=== PATIENT | male | born 1950 | race Caucasian/White ===

== ENCOUNTER 2020-02-29 12:58 | Emergency (ER) | payer MEDICARE, BC ==
[2020-02-29] MEDS ORDERED: Sodium Chloride 0.9% 2.5 ML Syringe FLUSH PRN (13:18)
[2020-02-29] MEDS ORDERED: Sodium Chloride 0.9% 10 ML SDV IV PRN (13:18)
[2020-02-29] MEDS ORDERED: Sodium Chloride 0.9% 10 ML Syringe FLUSH PRN (13:18)
--- NOTE | 2020-02-29 13:20 | EDM.PDOC ---
ED HPI GENERAL MEDICAL PROBLEM - General Chief Complaint: General Stated Complaint: DIABETIC COMPLAINT Time Seen by Provider: 02/29/20 13:00 Source of Information: Reports: Patient History Limitations: Reports: No Limitations - History of Present Illness INITIAL COMMENTS - FREE TEXT/NARRATIVE: HISTORY AND PHYSICAL: History of present illness: Patient is a 70-year-old male who presents to the emergency room with multiple vague complaints. Patient states he woke up around 8 AM this morning and he had difficulty feeling his lower extremities. He states he was not able to move his legs out of bed, so he rolled out of bed and crawled to the bathroom. His had noticed him crawling on the ground and had assisted him into a chair. She checked his blood sugar as he is a type 1 insulin-dependent diabetic , his blood sugar was 51. The had given him several glasses of Gatorade and he sat in the chair for about an hour. He states he did feel tremulous and weak but regained his strength and went outside to water the martin. He came inside and ate some rice and sausage. When he came in and sat in his recliner he reports his was talking to him but he was unable to verbally respond. He states he was aphasic for about 20 seconds before he was able to talk (per ). During this time he was able to move his upper and lower extremities and denies any one-sided weakness. He states he did not have any type of facial droop, drooling, headache, change in vision, syncope or near syncopal events. Patient denies any fever, chills, chest pain, back pain, shortness of breath or cough. Denies any abdominal pain, nausea, vomiting, diarrhea, constipation or dysuria. Has not noted any blood in urine or stool. Patient has been eating and drinking appropriately. Review of systems: As per history of present illness and below otherwise all systems reviewed and negative. Past medical history: As per history of present illness and as reviewed below otherwise noncontributory. Surgical history: As per history of present illness and as reviewed below otherwise noncontributory. Social history: See social history for further information Family history: As per history of present illness and as reviewed below otherwise noncontributory. Physical exam: General: Well-developed and well-nourished 70-year-old male. Alert and oriented. Nontoxic-appearing and in no acute distress. HEENT: Atraumatic, normocephalic, pupils equal and reactive bilaterally, negative for conjunctival pallor or scleral icterus, mucous membranes moist, TMs normal bilaterally, throat clear, neck supple, nontender, trachea midline. No drooling or trismus noted. No meningeal signs. No hot potato voice noted. Lungs: Clear to auscultation, breath sounds equal bilaterally, chest nontender. Heart: S1S2, regular rate and rhythm without overt murmur Abdomen: Soft, nondistended, nontender. Negative for masses or hepatosplenomegaly. Negative for costovertebral tenderness. Pelvis: Stable nontender. Skin: Intact, warm, dry. No lesions or rashes noted. Extremities: Atraumatic, moves all extremities per self without difficulty or deficits, negative for cords or calf pain. Neurovascular unremarkable. Neuro: Awake, alert, oriented. Cranial nerves II through XII unremarkable. Cerebellum unremarkable. Motor and sensory unremarkable throughout. Exam nonfocal. Notes: Upon patient arrival he is alert, oriented, answering questions appropriately. Neurologically he is intact and following all commands. NIH equals 0, GCS 15. Last known well time is 1230. Due to patient's complaints a stroke alert was called overhead and Dr Akbar was directly involved in this patient's care. Nursing staff had gone down with the patient for head CT. It was noted that the patient became aphasic again, this lasted 8 minutes. During this time he had tonic clonic jerking movements but was following all commands. NIH 7. 1400: [facility] was consulted, Dr. Eldridge the ED physician states they are at maximum capacity and recommended he go to [facility]. EKG was done at 1403 showing a normal sinus rhythm with a rate of 83. 1420: [facility] was consulted on this case. Dr. Wong, ER physician, was made aware of this patient and he is agreeable to accepting this patient. We did attempt to get a hold of the hospitalist to have the patient directly admitted although due to the long wait of time Dr. Wong he did not want to delay any care and said he could come through the emergency room. Patient will be flown via [facility]. His vital signs remained stable. Went through contraindications for Alteplase with and patient; risks vs benefits were also reviewed and discussed with both parties. Both consent; will give here in the ED. TPA was given in the ER, see note. Flight crew here. Patient had a 3rd episode where he became intermittently aphasic/dysarthric with the tonic clonic jerking movements. He still is able to follow commands appropriately. is at bedside. Head CT shows no sign of mass lesions, mass-effect, hemorrhage or edema. Involutional changes. No other acute appearing findings are noted. CTA of the head shows no proximal intracranial arterial occlusions, filling deficits or high-grade stenosis. CTA neck shows no high-grade stenosis or filling defects in the cervical carotid systems or cervical vertebral arteries. No dissection is identified. Lab work is unremarkable with the exception of slightly elevated BUN/creat. Diagnostics: CBC, CMP, troponin, EKG, chest x-ray, head CT, bedside glucose, PT/INR, angios head Therapeutics: Saline lock, information services manager, aspirin, alteplase Impression: Presumed ischemic stroke Plan: Transfer via flight to [facility] Definitive disposition and diagnosis as appropriate pending reevaluation and review of above. - Related Data Allergies Allergy/AdvReac Type Severity Reaction Status Date / Time No Known Allergies Allergy Verified 02/29/20 13:46 ED ROS GENERAL - Review of Systems Review Of Systems: Comprehensive ROS is negative, except as noted in HPI. ED EXAM, GENERAL - Physical Exam Exam: See Below (See dictation) Course - Vital Signs Last Recorded V/S: Last Vital Signs Temp 98.5 F 02/29/20 13:17 Pulse 92 02/29/20 13:17 Resp 15 02/29/20 13:17 BP 131/80 02/29/20 13:17 Pulse Ox 97 02/29/20 13:17 - Orders/Labs/Meds Orders: Active Orders 24 hr Category Date Time Status Assess Neurological Status [RC] ASDIRECTED Care 02/29/20 13:18 Active Blood Glucose Check, Bedside [RC] ONETIME Care 02/29/20 13:20 Active Cardiac Monitoring [RC] . DIRECTED Care 02/29/20 13:18 Active EKG Documentation Completion [RC] STAT Care 02/29/20 13:18 Active Initiate Acute Stroke Protocol [RC] STAT Care 02/29/20 13:18 Active NIH Stroke Scale [RC] ASDIRECTED Care 02/29/20 13:18 Active Sodium Chloride 0.9% [Normal Saline] Med 02/29/20 13:18 Active 10 ml IV ASDIRECTED PRN Sodium Chloride 0.9% [Saline Flush] Med 02/29/20 13:18 Active 10 ml FLUSH ASDIRECTED PRN Sodium Chloride 0.9% [Saline Flush] Med 02/29/20 13:18 Active 2.5 ml FLUSH ASDIRECTED PRN Peripheral IV Insertion Adult [OM.PC] Stat Oth 02/29/20 13:18 Ordered Medication Orders Sodium Chloride (Saline Flush) 10 ml FLUSH ASDIRECTED PRN PRN Reason: Keep Vein Open Last Admin: 02/29/20 13:36 Dose: 10 ml Sodium Chloride (Saline Flush) 2.5 ml FLUSH ASDIRECTED PRN PRN Reason: Keep Vein Open Last Admin: 02/29/20 13:36 Dose: 2.5 ml Sodium Chloride (Normal Saline) 10 ml IV ASDIRECTED PRN PRN Reason: IV Use Last Admin: 02/29/20 13:36 Dose: 10 ml Labs: Laboratory Tests 02/29/20 02/29/20 02/29/20 Range/Units 13:16 13:27 13:27 WBC 8.59 (4.0-11.0) K/uL RBC 4.42 L (4.50-5.90) M/uL Hgb 13.5 (13.0-17.0) g/dL Hct 39.3 (38.0-50.0) % MCV 88.9 (80.0-98.0) fL MCH 30.5 (27.0-32.0) pg MCHC 34.4 (31.0-37.0) g/dL RDW Std Deviation 44.7 (28.0-62.0) fl RDW Coeff of Mariah 14 (11.0-15.0) % Plt Count 185 (150-400) K/uL MPV 10.80 (7.40-12.00) fL Neut % (Auto) 75.9 (48.0-80.0) % Lymph % (Auto) 15.6 L (16.0-40.0) % [place] % (Auto) 7.7 (0.0-15.0) % Eos % (Auto) 0.6 (0.0-7.0) % Baso % (Auto) 0.2 (0.0-1.5) % Neut # (Auto) 6.5 H (1.4-5.7) K/uL Lymph # (Auto) 1.3 (0.6-2.4) K/uL [place] # (Auto) 0.7 (0.0-0.8) K/uL Eos # (Auto) 0.1 (0.0-0.7) K/uL Baso # (Auto) 0.0 (0.0-0.1) K/uL Nucleated RBC % 0.0 /100WBC Nucleated RBCs # 0 K/uL INR 0.93 Sodium (136-148) mmol/L Potassium (3.5-5.1) mmol/L Chloride (98-107) mmol/L Carbon Dioxide (21.0-32.0) mmol/L BUN (7.0-18.0) mg/dL Creatinine (0.8-1.3) mg/dL Est Cr Clr Drug Dosing Estimated GFR (MDRD) ml/min Glucose (74-106) mg/dL POC Glucose 158 H (60-110) mg/dL Calcium (8.5-10.1) mg/dL Total Bilirubin (0.2-1.0) mg/dL AST (15-37) IU/L ALT (14-63) IU/L Alkaline Phosphatase (46-116) U/L Troponin I (0.000-0.056) ng/mL Total Protein (6.4-8.2) g/dL Albumin (3.4-5.0) g/dL Globulin (2.6-4.0) g/dL Albumin/Globulin Ratio (0.9-1.6) 02/29/20 Range/Units 13:27 WBC (4.0-11.0) K/uL RBC (4.50-5.90) M/uL Hgb (13.0-17.0) g/dL Hct (38.0-50.0) % MCV (80.0-98.0) fL MCH (27.0-32.0) pg MCHC (31.0-37.0) g/dL RDW Std Deviation (28.0-62.0) fl RDW Coeff of Mariah (11.0-15.0) % Plt Count (150-400) K/uL MPV (7.40-12.00) fL Neut % (Auto) (48.0-80.0) % Lymph % (Auto) (16.0-40.0) % [place] % (Auto) (0.0-15.0) % Eos % (Auto) (0.0-7.0) % Baso % (Auto) (0.0-1.5) % Neut # (Auto) (1.4-5.7) K/uL Lymph # (Auto) (0.6-2.4) K/uL [place] # (Auto) (0.0-0.8) K/uL Eos # (Auto) (0.0-0.7) K/uL Baso # (Auto) (0.0-0.1) K/uL Nucleated RBC % /100WBC Nucleated RBCs # K/uL INR Sodium 138 (136-148) mmol/L Potassium 4.3 (3.5-5.1) mmol/L Chloride 99 (98-107) mmol/L Carbon Dioxide 27.3 (21.0-32.0) mmol/L BUN 30 H (7.0-18.0) mg/dL Creatinine 1.4 H (0.8-1.3) mg/dL Est Cr Clr Drug Dosing TNP Estimated GFR (MDRD) 50.4 ml/min Glucose 148 H (74-106) mg/dL POC Glucose (60-110) mg/dL Calcium 8.4 L (8.5-10.1) mg/dL Total Bilirubin 0.4 (0.2-1.0) mg/dL AST 30 (15-37) IU/L ALT 39 (14-63) IU/L Alkaline Phosphatase 120 H (46-116) U/L Troponin I < 0.050 (0.000-0.056) ng/mL Total Protein 6.8 (6.4-8.2) g/dL Albumin 3.5 (3.4-5.0) g/dL Globulin 3.3 (2.6-4.0) g/dL Albumin/Globulin Ratio 1.1 (0.9-1.6) Meds: Medications Generic Name Dose Route Start Last Admin Trade Name Freq PRN Reason Stop Dose Admin Sodium Chloride 10 ml 06/06/20 13:18 02/29/20 13:36 Saline Flush FLUSH 10 ml ASDIRECTED PRN Administration Keep Vein Open Sodium Chloride 2.5 ml 02/29/20 13:18 02/29/20 13:36 Saline Flush FLUSH 2.5 ml ASDIRECTED PRN Administration Keep Vein Open Sodium Chloride 10 ml 02/29/20 13:18 02/29/20 13:36 Normal Saline IV 10 ml ASDIRECTED PRN Administration IV Use Discontinued Medications Generic Name Dose Route Start Last Admin Trade Name Melanie PRN Reason Stop Dose Admin Alteplase, Recombinant Confirm 02/29/20 13:48 Activase Administered 02/29/20 13:49 Dose 100 mg .ROUTE .STK-MED ONE Alteplase, Recombinant 90 mg 02/29/20 13:51 Activase IV 02/29/20 13:52 NOW STA Aspirin 324 mg 02/29/20 13:29 Aspirin PO 02/29/20 13:30 ONETIME ONE Aspirin 300 mg 02/29/20 14:16 Aspirin RECTAL 02/29/20 14:17 STAT STA Aspirin Confirm 02/29/20 14:18 Aspirin Administered 02/29/20 14:19 Dose 300 mg .ROUTE .STK-MED ONE Iopamidol 100 ml 02/29/20 14:14 02/29/20 14:15 Isovue-370 (76%) IVPUSH 02/29/20 14:15 100 ml ONETIME ONE Administration Departure - Departure Time of Disposition: 14:52 Disposition: DC/Tfer to Acute Hospital 02 Clinical Impression: Ischemic stroke - Discharge Information Referrals: Alexis Berkowitz MD [Primary Care Provider] - Forms: ED Department Discharge Sepsis Event Note - Focused Exam Vital Signs: Vital Signs Temp Pulse Resp BP Pulse Ox 02/29/20 13:17 98.5 F 92 15 131/80 97 Date Exam was Performed: 02/29/20 Time Exam was Performed: 14:47 - My Orders Last 24 Hours: My Active Orders 02/29/20 13:18 Assess Neurological Status [RC] ASDIRECTED Cardiac Monitoring [RC] . DIRECTED EKG Documentation Completion [RC] STAT Initiate Acute Stroke Protocol [RC] STAT NIH Stroke Scale [RC] ASDIRECTED Sodium Chloride 0.9% [Normal Saline] 10 ml IV ASDIRECTED PRN Sodium Chloride 0.9% [Saline Flush] 10 ml FLUSH ASDIRECTED PRN Sodium Chloride 0.9% [Saline Flush] 2.5 ml FLUSH ASDIRECTED PRN Peripheral IV Insertion Adult [OM.PC] Stat 02/29/20 13:20 Blood Glucose Check, Bedside [RC] ONETIME - Assessment/Plan Last 24 Hours: My Active Orders 02/29/20 13:18 Assess Neurological Status [RC] ASDIRECTED Cardiac Monitoring [RC] . DIRECTED EKG Documentation Completion [RC] STAT Initiate Acute Stroke Protocol [RC] STAT NIH Stroke Scale [RC] ASDIRECTED Sodium Chloride 0.9% [Normal Saline] 10 ml IV ASDIRECTED PRN Sodium Chloride 0.9% [Saline Flush] 10 ml FLUSH ASDIRECTED PRN Sodium Chloride 0.9% [Saline Flush] 2.5 ml FLUSH ASDIRECTED PRN Peripheral IV Insertion Adult [OM.PC] Stat 02/29/20 13:20 Blood Glucose Check, Bedside [RC] ONETIME
[2020-02-29] MEDS ORDERED: Aspirin 81 MG Tab.Chew PO ONE (13:29)
[2020-02-29 14:01] LABS: BLOOD UREA NITROGEN,BUN 30 mg/dL (7.0-18.0); CARBON DIOXIDE,CO2 27.3 mmol/L (21.0-32.0); CHLORIDE,CL 99 mmol/L (98-107); GLUCOSE RANDOM 148 mg/dL (74-106); POTASSIUM,K 4.3 mmol/L (3.5-5.1); SODIUM,NA 138 mmol/L (136-148)
[2020-02-29] MEDS ORDERED: Iopamidol 755 Mg/ML 100 ML Bottle IVPUSH ONE (14:14)
[2020-02-29] MEDS ORDERED: Aspirin 300 MG Supp RECTAL STA (14:16)
[2020-02-29] MEDS ORDERED: Aspirin 300 MG Supp ONE (14:18)
--- NOTE | 2020-02-29 14:18 | CT ---
INDICATION: Stroke COMPARISON: None TECHNIQUE: CT examination of the head was performed as axial sections without intravenous contrast. Images were obtained from the vertex of the skull through the skull base. Please note that all CT scans at this facility use dose modulation, iterative reconstruction, and/or weight-based dosing when appropriate to reduce radiation dose to as low as reasonably achievable. FINDINGS: The brain shows no sign of mass lesion, mass effect, hemorrhage, or edema. There are involutional changes. There is mild cortical atrophy and there is mild white matter disease. There is no hydrocephalus. The visualized portions of the orbits are normal in appearance. The osseous structures are normal in appearance with no sign of abnormality in the skull base or calvarium. IMPRESSION: Involutional changes. No acute-appearing findings. Please note that all CT scans at this facility use dose modulation, iterative reconstruction, and/or weight-based dosing when appropriate to reduce radiation dose to as low as reasonably achievable. Dictated by Benton Reeves MD @ Feb 29 2020 2:10PM Signed by Dr. Benton Reeves @ Feb 29 2020 2:16PM
--- NOTE | 2020-02-29 14:38 | PCM.SN.2 ---
- Free Text/Narrative Note: Patient was presented to be by the mid-level provider. I have personally independently seen and evaluated the patient at bedside and, if available, have spoken with the with the family. I agree with the history, physical, medical decision making, and plan of treatment as documented by the mid-level provider. I have performed the medical decision making for this patient, including assessing the results of all diagnostic testing and I have instructed the mid- level provider to document the results. In brief, this is a 70-year-old male with a past medical history of hypertension , hyperlipidemia, and type 2 diabetes mellitus presenting with concern for stroke. Patient was at home when he developed aphasia that was witnessed by his . Symptoms resolved by the time he arrived to the emergency department. Due to concern for stroke, a stroke code was declared. Initial NIH was 0. Transported to the CT scanner where he developed aphasia and myoclonic jerks, which were identical to the symptoms he had at home. NIH score with these symptoms was 7. Noncontrast head CT shows no evidence of intracranial hemorrhage. Given full dose aspirin suppository, IV TPA. Aeromedical transport activation. Labs show mild renal insufficiency. Twelve- lead EKG is nonischemic. Initially planned to transport to closest appropriate stroke facility in [place], [place] but no bed availability. Patient was then arranged to transfer to the next closest drug facility: [facility] in [place], [place]. Transfer to aeromedical crew in good condition.
--- NOTE | 2020-02-29 14:43 | CT ---
INDICATION: Acute stroke, altered mental status. Preliminary Report: CTA head: No proximal intracranial arterial occlusions, filling defects or high-grade stenoses. CTA neck: No high-grade stenosis or filling defects are identified in the cervical carotid systems or cervical vertebral arteries. No dissection identified. Prelim Report By Dr. Hoang Daily @ 02/29/2020 2:41:20 PM ADDENDUM TECHNIQUE: High resolution axial CT images acquired through the head and neck following rapid intravenous administration of iodinated contrast. Multiplanar MIPS of cranial and cervical vasculature performed. FINDINGS/IMPRESSION: AGREE WITH ABOVE. No large vessel occlusion. Heavily calcified plaque around both carotid siphons and at both carotid bifurcations. No significant stenosis by NASCET criteria. No carotid or vertebral artery dissection. Please note that all CT scans at this facility use dose modulation, iterative reconstruction, and/or weight-based dosing when appropriate to reduce radiation dose to as low as reasonably achievable. Dictated by: Umberto Deutsch MD @ 02/29/2020 17:11:17 (Electronically Signed)
--- NOTE | 2020-02-29 14:43 | CT ---
INDICATION: Acute stroke, altered mental status. Preliminary Report: CTA head: No proximal intracranial arterial occlusions, filling defects or high-grade stenoses. CTA neck: No high-grade stenosis or filling defects are identified in the cervical carotid systems or cervical vertebral arteries. No dissection identified. Prelim Report By Dr. Hoang Daily @ 02/29/2020 2:41:40 PM ADDENDUM TECHNIQUE: High resolution axial CT images acquired through the head and neck following rapid intravenous administration of iodinated contrast. Multiplanar MIPS of cranial and cervical vasculature performed. FINDINGS/IMPRESSION: AGREE WITH ABOVE. No large vessel occlusion. Heavily calcified plaque around both carotid siphons and at both carotid bifurcations. No significant stenosis by NASCET criteria. No carotid or vertebral artery dissection. Please note that all CT scans at this facility use dose modulation, iterative reconstruction, and/or weight-based dosing when appropriate to reduce radiation dose to as low as reasonably achievable. Dictated by: Umberto Deutsch MD @ 02/29/2020 17:11:38 (Electronically Signed)
== END 2020-02-29 14:40 ==
LOC: MW.ED 12:58
DX: I63.9 Cerebral infarction, unspecified (principal)
CPT/HCPCS: 36415; 37195; 51702; 70450; 70496; 70498; 80053; 82962; 84484; 85025; 85610; 93005; 99291; A9270; J2997; J7050; Q9967; 99285

== ENCOUNTER 2021-03-22 15:52 | Emergency (ER) | payer MEDICARE, BC ==
[2021-03-22] MEDS ORDERED: Sodium Chloride 0.9% 10 ML Syringe FLUSH PRN (15:54)
[2021-03-22] MEDS ORDERED: Sodium Chloride 0.9% 2.5 ML Syringe FLUSH PRN (15:54)
[2021-03-22] MEDS ORDERED: Sodium Chloride 0.9% 1,000 ML IV ONE (15:54)
[2021-03-22] MEDS ORDERED: Ondansetron 4 MG/2 ML SDV IVPUSH ONE (15:54)
[2021-03-22 16:35] LABS: BLOOD UREA NITROGEN,BUN 33 mg/dL (7.0-18.0); CARBON DIOXIDE,CO2 21.4 mmol/L (21.0-32.0); CHLORIDE,CL 105 mmol/L (98-107); GLUCOSE RANDOM 131 mg/dL (74-106); LIPASE 189 U/L (73-393); POTASSIUM,K 3.7 mmol/L (3.5-5.1); SODIUM,NA 141 mmol/L (136-148)
--- NOTE | 2021-03-22 16:35 | EDM.PDOC ---
ED HPI GENERAL MEDICAL PROBLEM - General Chief Complaint: Gastrointestinal Problem Stated Complaint: ATE BAD SALSA Time Seen by Provider: 03/22/21 15:54 Source of Information: Reports: Patient History Limitations: Reports: No Limitations - History of Present Illness INITIAL COMMENTS - FREE TEXT/NARRATIVE: HISTORY AND PHYSICAL: History of present illness: Patient is a 71-year-old male who presents to the emergency room with complaints of nausea and vomiting. States approximately 2 hours prior to arrival he was eating at a [place] restaurant and believes he ate "bad salsa". Prior to arrival he started having generalized abdominal cramping, nausea and vomiting. He is concerned he has food poisoning. He is a type I diabetic, has insulin pump. Current blood sugar is 138. Patient denies any fever, chills, headache, change in vision, syncope or near syncope. Denies any chest pain, back pain, shortness of breath or cough. Denies any diarrhea, constipation or dysuria. Has not noted any blood in urine or stool. Patient had been eating and drinking appropriately. Review of systems: As per history of present illness and below otherwise all systems reviewed and negative. Past medical history: As per history of present illness and as reviewed below otherwise noncontributory. Surgical history: As per history of present illness and as reviewed below otherwise no ncontributory. Social history: See social history for further information Family history: As per history of present illness and as reviewed below otherwise noncontributory. Physical exam: General: Well developed and well nourished. Alert and orientated x 3. Nontoxic in appearance and in no acute distress. Vital signs are stable and have been reviewed by me. Nursing notes were reviewed. HEENT: Atraumatic, normocephalic, pupils equal and reactive bilaterally, negative for conjunctival pallor or scleral icterus, mucous membranes moist, TMs normal bilaterally, throat clear, neck supple, nontender, trachea midline. No drooling or trismus noted. No meningeal signs. No hot potato voice noted. Lungs: Clear to auscultation bilaterally. No wheezes, rales, or rhonchi. Chest nontender. Normal work of breathing, no accessory muscles used. Heart: S1S2, regular rate and rhythm without overt murmur, gallops, or rubs. No JVD. No peripheral edema Abdomen: Soft, nondistended, nontender. Normoactive bowel sounds. Negative for masses or costovertebral tenderness. Skin: Intact, warm, dry. No lesions or rashes noted. Hematologic: No petechiae or purpra. Mucosa appropriate color and normal nail b ed color and refill. Extremities: Atraumatic, moves all extremities per self without difficulty or deficits, negative for cords or calf pain. Neurovascular unremarkable. Neuro: Awake, alert, oriented. Cranial nerves II through XII unremarkable. Cerebellum unremarkable. Motor and sensory unremarkable throughout. Exam nonfocal. Psychiatric: Mood and affect are appropriate. Normal thought process. Answering questions appropriately. Notes: *This patient was seen and evaluated during the 2019 SARS-CoV-2 novel coronavirus pandemic period. Community viral transmission is ongoing at time of this encounter and the emergency department is operating under pandemic response procedures. Patient is a 71-year-old male who presents to the emergency room with concerns of food poisoning. He states that he started to feel symptomatic about 2 hours after eating some Vietnamese food. He is actively dry heaving during my physical exam. His abdomen is nontender. We will do basic lab work to make sure there is nothing additional going on. Patient is aware and agreeable to plan of care. His blood sugar is 138 at this time. Elevated BUN/Creat, chronically elevated. Lab work is otherwise unremarkable. Patient states that he feels like his abdomen is on "fire". We will give him a GI cocktail and reassess. Patient states he feels much improved after the GI cocktail and would like to be discharged home to "sleep". I have talked with the patient about today's findings, in addition to providing specific details for plan of care. Reassessment at the time of disposition demonstrates that the patient is in no acute distress. The patient is stable for discharge, counseling was provided and we discussed in great detail signs and symptoms that would prompt them to return to the Emergency Department. Medication, follow up and supportive care measures were reviewed and discussed. Voices understanding and is agreeable to plan of care. Denies any further questions or concerns at this time. Diagnostics: CBC, CMP, UA, lipase Therapeutics: IV fluid, Zofran, GI cocktail Prescription: Zofran Impression: Gastroenteritis Plan: 1. You were evaluated today on an emergent basis. Your lab work is within normal limits. [place]/BRAT diet (bananas, rice, applesauce, toast) and advance as tolerated. Increase your oral fluids, to prevent dehydration. 2. Zofran as needed for nausea management. You can alternate Tylenol and ibuprofen as needed for pain and fever management. 3. We encourage you to follow up with your primary care provider and/or recommended specialist in the next few days for re-evaluation and further care/management. 4. If your symptoms should worsen, new symptoms develop or any of the signs and symptoms we discussed should arise please return to the emergency room or call 911 (if needed). Definitive disposition and diagnosis as appropriate pending reevaluation and review of above. Onset: Today - Related Data Allergies Allergy/AdvReac Type Severity Reaction Status Date / Time Penicillins Allergy Other Verified 03/22/21 17:28 Home Meds: Home Meds Insulin Aspart [NovoLOG] 1 unit PO ASDIRECTED 03/22/21 [History] Ondansetron [Zofran ODT] 4 mg PO Q6H PRN #8 tab.dis 03/22/21 [Rx] Past Medical History HEENT History: Reports: None Cardiovascular History: Reports: Hypertension Respiratory History: Reports: None Gastrointestinal History: Reports: Celiac Disease Genitourinary History: Reports: None Musculoskeletal History: Reports: None Neurological History: Reports: None Psychiatric History: Reports: None Endocrine/Metabolic History: Reports: Diabetes, Type II Hematologic History: Reports: None Immunologic History: Reports: None Oncologic (Cancer) History: Reports: None Dermatologic History: Reports: None - Infectious Disease History Infectious Disease History: Reports: None - Past Surgical History Head Surgeries/Procedures: Reports: None HEENT Surgical History: Reports: None Social & Family History - Family History Family Medical History: No Pertinent Family History - Caffeine Use Caffeine Use: Reports: Coffee ED ROS GENERAL - Review of Systems Review Of Systems: Comprehensive ROS is negative, except as noted in HPI. ED EXAM, GI/ABD - Physical Exam Exam: See Below (See dictation) Course - Vital Signs Last Recorded V/S: Last Vital Signs Temp 98 F 03/22/21 16:00 Pulse 85 03/22/21 18:03 Resp 16 03/22/21 18:03 BP 191/85 H 03/22/21 18:03 Pulse Ox 100 03/22/21 18:03 Orthostatic Blood Pressure [ 201/88 Standing] Orthostatic Blood Pressure [ 200/80 Sitting] Orthostatic Blood Pressure [ 199/75 Supine] - Orders/Labs/Meds Labs: Laboratory Tests 03/22/21 03/22/21 03/22/21 Range/Units 15:57 15:57 16:00 WBC 8.58 (4.0-11.0) K/uL RBC 4.47 L (4.50-5.90) M/uL Hgb 13.6 (13.0-17.0) g/dL Hct 38.9 (38.0-50.0) % MCV 87.0 (80.0-98.0) fL MCH 30.4 (27.0-32.0) pg MCHC 35.0 (31.0-37.0) g/dL RDW Std Deviation 43.3 (28.0-62.0) fl RDW Coeff of Mariah 14 (11.0-15.0) % Plt Count 208 (150-400) K/uL MPV 10.70 (7.40-12.00) fL Neut % (Auto) 63.1 (48.0-80.0) % Lymph % (Auto) 22.8 (16.0-40.0) % [place] % (Auto) 11.2 (0.0-15.0) % Eos % (Auto) 2.2 (0.0-7.0) % Baso % (Auto) 0.7 (0.0-1.5) % Neut # (Auto) 5.4 (1.4-5.7) K/uL Lymph # (Auto) 2.0 (0.6-2.4) K/uL [place] # (Auto) 1.0 H (0.0-0.8) K/uL Eos # (Auto) 0.2 (0.0-0.7) K/uL Baso # (Auto) 0.1 (0.0-0.1) K/uL Sodium 141 (136-148) mmol/L Potassium 3.7 (3.5-5.1) mmol/L Chloride 105 (98-107) mmol/L Carbon Dioxide 21.4 (21.0-32.0) mmol/L BUN 33 H (7.0-18.0) mg/dL Creatinine 1.4 H (0.8-1.3) mg/dL Est Cr Clr Drug Dosing TNP Estimated GFR (MDRD) 50.2 ml/min Glucose 131 H (74-106) mg/dL Calcium 8.8 (8.5-10.1) mg/dL Total Bilirubin 0.4 (0.2-1.0) mg/dL AST 18 (15-37) IU/L ALT 27 (14-63) IU/L Alkaline Phosphatase 98 (46-116) U/L Total Protein 6.6 (6.4-8.2) g/dL Albumin 3.2 L (3.4-5.0) g/dL Globulin 3.4 (2.6-4.0) g/dL Albumin/Globulin Ratio 0.9 (0.9-1.6) Lipase 189 (73-393) U/L Urine Color YELLOW Urine Appearance CLEAR Urine pH 7.5 (5.0-8.0) Ur Specific [place] 1.020 (1.001-1.035) Urine Protein 100 H (NEGATIVE) mg/dL Urine Glucose (UA) NEGATIVE (NEGATIVE) mg/dL Urine Ketones 15 H (NEGATIVE) mg/dL Urine Occult Blood NEGATIVE (NEGATIVE) Urine Nitrite NEGATIVE (NEGATIVE) Urine Bilirubin NEGATIVE (NEGATIVE) Urine Urobilinogen 0.2 (<2.0) EU/dL Ur Leukocyte Esterase NEGATIVE (NEGATIVE) Urine RBC 0-2 (0-2/HPF) Urine WBC 0-2 (0-5/HPF) Ur Epithelial Cells RARE (NONE-FEW) Urine Bacteria RARE (NEGATIVE) Meds: Medications Discontinued Medications Generic Name Dose Route Start Last Admin Trade Name Freq PRN Reason Stop Dose Admin Al Hydroxide/Mg Hydroxide 15 0 ml 03/22/21 17:16 03/22/21 17:27 ml/ Metoclopramide HCl 5 mg/ PO 03/22/21 17:17 1 each Lidocaine HCl 5 ml ONETIME ONE Administration Sodium Chloride 1,000 mls @ 999 mls/hr 03/22/21 15:54 03/22/21 15:59 Normal Saline IV 03/22/21 16:54 999 mls/hr STAT ONE Administration Ondansetron HCl 4 mg 03/22/21 15:54 03/22/21 15:59 Ondansetron 4 Mg/2 Ml Sdv IVPUSH 03/22/21 15:55 4 mg ONETIME ONE Administration Sodium Chloride 10 ml 03/22/21 15:54 03/22/21 15:59 Sodium Chloride 0.9% 10 Ml Syringe FLUSH 10 ml ASDIRECTED PRN Administration Keep Vein Open Sodium Chloride 2.5 ml 03/22/21 15:54 03/22/21 15:59 Sodium Chloride 0.9% 2.5 Ml Syringe FLUSH 2.5 ml ASDIRECTED PRN Administration Keep Vein Open Departure - Departure Time of Disposition: 17:01 Disposition: Home, Self-Care 01 Clinical Impression: Gastroenteritis - Discharge Information Prescriptions: Ondansetron [Zofran ODT] 4 mg PO Q6H PRN #8 tab.dis PRN Reason: Nausea Instructions: Viral Gastroenteritis, Adult, [id number] Referrals: Alexis Berkowitz MD [Primary Care Provider] - Forms: ED Department Discharge Additional Instructions: The following information is given to patients seen in the emergency department who are being discharged to home. This information is to outline your options for follow-up care. We provide all patients seen in our emergency department with a follow-up referral. The need for follow-up, as well as the timing and circumstances, are variable depending upon the specifics of your emergency department visit. If you don't have a primary care physician on staff, we will provide you with a referral. We always advise you to contact your personal physician following an emergency department visit to inform them of the circumstance of the visit and for follow-up with them and/or the need for any referrals to a consulting specialist. The emergency department will also refer you to a specialist when appropriate. This referral assures that you have the opportunity for follow-up care with a specialist. All of these measure are taken in an effort to provide you with optimal care, which includes your follow-up. Under all circumstances we always encourage you to contact your private physician who remains a resource for coordinating your care. When calling for follow-up care, please make the office aware that this follow-up is from your recent emergency room visit. If for any reason you are refused follow-up, please contact the [facility] Emergency Department at and asked to speak to the emergency department charge nurse. [facility] [address] [place] [id number] [facility] [address] [place] [address] Thank you for choosing the [facility] emergency department in [place] for your medical needs today. It was a pleasure caring for you. Today you were seen in the emergency department for viral stomach flu. 1. You were evaluated today on an emergent basis. Your lab work is within normal limits. [place]/BRAT diet (bananas, rice, applesauce, toast) and advance as tolerated. Increase your oral fluids, to prevent dehydration. 2. Zofran as needed for nausea management. You can alternate Tylenol and ibuprofen as needed for pain and fever management. 3. We encourage you to follow up with your primary care provider and/or recommended specialist in the next few days for re-evaluation and further care/management. 4. If your symptoms should worsen, new symptoms develop or any of the signs and symptoms we discussed should arise please return to the emergency room or call 911 (if needed).
[2021-03-22] MEDS ORDERED: Alum Hydrox/Mag Hydrox/Simeth 15 ML, Metoclopramide 5 MG, Lidocaine 2% 5 ML PO ONE ×3 (17:16)
--- NOTE | 2021-03-22 17:50 | PCM.EKG ---
#1 Interpretation EKG Interpretation Comments: EKG: As interpreted by ER physician: Robert: Nonspecific ST-T wave abnormalities Normal axis No evidence of ST elevation IN Normal sinus rhythm heart rate of 88
== END 2021-03-22 18:04 | disposition home or self-care (01) ==
LOC: MW.ED 15:52
DX: K52.9 Noninfective gastroenteritis and colitis, unspecified (principal); I10 Essential (primary) hypertension; E11.9 Type 2 diabetes mellitus without complications; Z79.4 Long term (current) use of insulin; Z88.0 Allergy status to penicillin
CPT/HCPCS: 36415; 80053; 81001; 82947; 83690; 85025; 93005; 96374; 99284; A9270; J2405; J7030

== ENCOUNTER 2021-03-25 17:20 | Inpatient (IN) | payer MEDICARE, BC ==
[2021-03-25] MEDS ORDERED: Piperacillin/Tazobactam 4.5 GM in Sodium Chloride 0.9% 100 ML IV ONE (18:03)
[2021-03-25] MEDS ORDERED: Lactated Ringers 1,000 ML IV ONE (18:08)
[2021-03-25] MEDS ORDERED: HYDROmorphone 2 MG/ML Syringe IVPUSH ONE (18:09)
[2021-03-25 18:51] LABS: CARBON DIOXIDE,CO2 26.1 mmol/L (21.0-32.0); POTASSIUM,K 3.8 mmol/L (3.5-5.1)
--- NOTE | 2021-03-25 18:59 | CR ---
For Patients: As a result of the Century Cures Act, medical imaging exams and procedure reports are released immediately into your electronic medical record. You may view this report before your referring provider. If you have questions, please contact your health care provider. INDICATION: Shortness of breath. TECHNIQUE: Portable AP chest radiograph. COMPARISON: 01/09/2019. FINDINGS: Low lung volumes with vascular crowding. No focal pulmonary opacity, pneumothorax, or sizable pleural effusion. Borderline cardiomegaly and mild thoracic aortic tortuosity, similar to prior when accounting for technical differences. IMPRESSION: No acute cardiopulmonary findings. Dictated by To Frazier MD @ 03/25/2021 6:59:01 PM Dictated by: To Frazier MD @ 03/25/2021 18:59:06 (Electronically Signed)
--- NOTE | 2021-03-25 19:13 | PCM.CONS ---
H&P History of Present Illness - General Date of Service: 03/25/21 Admit Problem/Dx: Acute cholecystitis Source of Information: Patient History Limitations: Reports: No Limitations - History of Present Illness Initial Comments - Free Text/Narative: Patient is a 71 year old male with a history of hypertension, BPH, type 1 diabetes mellitus, chronic lower extremity edema, chronic kidney disease, gout, and dyslipidemia. who presents with acute cholecystitis. He was seen in the ER this Monday with complaints of nausea and vomiting. He had eaten at a Italian restaurant and thought he ate "bad salsa". He was given a GI cocktail with good relief in his symptoms. He presented to his PCP office with complaints of ongoing pain. His WBC was normal but he had a left shift. He was slightly hyponatremic at 132. He was hyperglycemic. Ct abdomen pelvis showed his gallbladder was distended. with a large degree of inflammation around the gallbladder. These findings suggest acute cholecystitis. He was sent to the ER for evaluation. He was mildly tachycardic at 100 on arrival. He was hypertensive. He had a RUQ US which is pending. BUN/Cr were mildly elevated. right upper abdomen Pain Score (Numeric/FACES): 8 - Related Data Allergies/Adverse Reactions: Allergies Allergy/AdvReac Type Severity Reaction Status Date / Time Penicillins Allergy Other Verified 03/25/21 18:06 Home Medications: Home Meds Insulin Aspart [NovoLOG] 1 unit PO ASDIRECTED 03/22/21 [History] Ondansetron [Zofran ODT] 4 mg PO Q6H PRN #8 tab.dis 03/22/21 [Rx] Past Medical History HEENT History: Reports: None Cardiovascular History: Reports: Hypertension Respiratory History: Reports: None Gastrointestinal History: Reports: Celiac Disease Genitourinary History: Reports: None Musculoskeletal History: Reports: None Neurological History: Reports: None Psychiatric History: Reports: None Endocrine/Metabolic History: Reports: Diabetes, Type I Hematologic History: Reports: None Immunologic History: Reports: None Oncologic (Cancer) History: Reports: None Dermatologic History: Reports: None - Infectious Disease History Infectious Disease History: Reports: None - Past Surgical History Head Surgeries/Procedures: Reports: None HEENT Surgical History: Reports: None Male Surgical History: Reports: Other (See Below) (un-descending testicle surgery) Social & Family History - Family History Family Medical History: No Pertinent Family History - Tobacco Use Tobacco Use Status *Q: Never Tobacco User Second Hand Smoke Exposure: No - Caffeine Use Caffeine Use: Reports: None - Recreational Drug Use Recreational Drug Use: No H&P Review of Systems - Review of Systems: Review Of Systems: Comprehensive ROS is negative, except as noted in HPI. Exam - Exam Exam: See Below - Vital Signs Vital Signs: Last Vital Signs Temp 36.1 C 03/25/21 18:02 Pulse 94 03/25/21 18:02 Resp 18 03/25/21 18:02 BP 165/77 H 03/25/21 18:02 Pulse Ox 96 03/25/21 19:03 Weight: 104.326 kg - Exam General: Alert, Oriented HEENT: Conjunctiva Clear, Mucosa Moist & [place], Posterior Pharynx Clear Neck: Supple Lungs: Clear to Auscultation, Normal Respiratory Effort Cardiovascular: Regular Rate, Regular Rhythm GI/Abdominal Exam: Soft, No Distention, No Mass, Tender (RUQ) Extremities: Pedal Edema - Patient Data Lab Results Last 24 hrs: Laboratory Results - last 24 hr 03/25/21 03/25/21 03/25/21 Range/Units 18:07 18:07 18:07 WBC 9.49 (4.0-11.0) K/uL RBC 4.03 L (4.50-5.90) M/uL Hgb 12.3 L (13.0-17.0) g/dL Hct 35.2 L (38.0-50.0) % MCV 87.3 (80.0-98.0) fL MCH 30.5 (27.0-32.0) pg MCHC 34.9 (31.0-37.0) g/dL RDW Std Deviation 46.5 (28.0-62.0) fl RDW Coeff of Mariah 14 (11.0-15.0) % Plt Count 121 L (150-400) K/uL MPV 11.40 (7.40-12.00) fL Neut % (Auto) 89.6 H (48.0-80.0) % Lymph % (Auto) 3.6 L (16.0-40.0) % [place] % (Auto) 6.6 (0.0-15.0) % Eos % (Auto) 0.1 (0.0-7.0) % Baso % (Auto) 0.1 (0.0-1.5) % Neut # (Auto) 8.5 H (1.4-5.7) K/uL Lymph # (Auto) 0.3 L (0.6-2.4) K/uL [place] # (Auto) 0.6 (0.0-0.8) K/uL Eos # (Auto) 0.0 (0.0-0.7) K/uL Baso # (Auto) 0.0 (0.0-0.1) K/uL Nucleated RBC % 0.0 /100WBC Nucleated RBCs # 0 K/uL INR 0.91 Sodium 129 L (136-148) mmol/L Potassium 3.8 (3.5-5.1) mmol/L Chloride 95 L (98-107) mmol/L Carbon Dioxide 26.1 (21.0-32.0) mmol/L BUN 25 H (7.0-18.0) mg/dL Creatinine 1.5 H (0.8-1.3) mg/dL Est Cr Clr Drug Dosing 49.50 mL/min Estimated GFR (MDRD) 46.4 ml/min Glucose 155 H (74-106) mg/dL Lactic Acid (0.4-2.0) mmol/L Calcium 8.1 L (8.5-10.1) mg/dL Magnesium 1.8 (1.8-2.4) mg/dL Total Bilirubin 0.4 (0.2-1.0) mg/dL AST 20 (15-37) IU/L ALT 25 (14-63) IU/L Alkaline Phosphatase 95 (46-116) U/L Troponin I (0.000-0.056) ng/mL Total Protein 6.0 L (6.4-8.2) g/dL Albumin 1.9 L (3.4-5.0) g/dL Globulin 4.1 H (2.6-4.0) g/dL Albumin/Globulin Ratio 0.5 L (0.9-1.6) 03/25/21 03/25/21 Range/Units 18:07 18:07 WBC (4.0-11.0) K/uL RBC (4.50-5.90) M/uL Hgb (13.0-17.0) g/dL Hct (38.0-50.0) % MCV (80.0-98.0) fL MCH (27.0-32.0) pg MCHC (31.0-37.0) g/dL RDW Std Deviation (28.0-62.0) fl RDW Coeff of Mariah (11.0-15.0) % Plt Count (150-400) K/uL MPV (7.40-12.00) fL Neut % (Auto) (48.0-80.0) % Lymph % (Auto) (16.0-40.0) % [place] % (Auto) (0.0-15.0) % Eos % (Auto) (0.0-7.0) % Baso % (Auto) (0.0-1.5) % Neut # (Auto) (1.4-5.7) K/uL Lymph # (Auto) (0.6-2.4) K/uL [place] # (Auto) (0.0-0.8) K/uL Eos # (Auto) (0.0-0.7) K/uL Baso # (Auto) (0.0-0.1) K/uL Nucleated RBC % /100WBC Nucleated RBCs # K/uL INR Sodium (136-148) mmol/L Potassium (3.5-5.1) mmol/L Chloride (98-107) mmol/L Carbon Dioxide (21.0-32.0) mmol/L BUN (7.0-18.0) mg/dL Creatinine (0.8-1.3) mg/dL Est Cr Clr Drug Dosing mL/min Estimated GFR (MDRD) ml/min Glucose (74-106) mg/dL Lactic Acid 1.3 (0.4-2.0) mmol/L Calcium (8.5-10.1) mg/dL Magnesium (1.8-2.4) mg/dL Total Bilirubin (0.2-1.0) mg/dL AST (15-37) IU/L ALT (14-63) IU/L Alkaline Phosphatase (46-116) U/L Troponin I < 0.050 (0.000-0.056) ng/mL Total Protein (6.4-8.2) g/dL Albumin (3.4-5.0) g/dL Globulin (2.6-4.0) g/dL Albumin/Globulin Ratio (0.9-1.6) Result Diagrams: 03/25/21 18:07 03/25/21 18:07 Sepsis Event Note - Evaluation Sepsis Screening Result: No Definite Risk - Focused Exam Vital Signs: Vital Signs Temp Pulse Resp BP Pulse Ox Pulse Ox 03/25/21 19:03 96 03/25/21 18:02 36.1 C 94 18 165/77 H 90 L Consult PN Assessment/Plan Procedures: Procedures ASSAY OF BLOOD/URIC ACID (09/04/20) ASSAY OF C-PEPTIDE (10/14/15) ASSAY OF CALCIUM (03/09/20) ASSAY OF FREE TESTOSTERONE (08/22/16) ASSAY OF FREE THYROXINE (01/09/19) ASSAY OF NATRIURETIC PEPTIDE (10/08/19) ASSAY OF PARATHORMONE (03/09/20) ASSAY OF PROTEIN SERUM (01/01/20) ASSAY OF PROTEIN URINE (09/04/20) ASSAY OF TOTAL TESTOSTERONE (08/22/16) ASSAY OF TROPONIN QUANT (02/29/20) ASSAY OF URINE CREATININE (09/04/20) ASSAY THYROID STIM HORMONE (01/09/19) COMPLEMENT ANTIGEN (12/03/19) COMPLETE CBC AUTOMATED (09/04/20) COMPLETE CBC W/AUTO DIFF WBC (03/09/20) COMPREHEN METABOLIC PANEL (02/29/20) CRITICAL CARE FIRST HOUR (02/29/20) CT ANGIOGRAPHY HEAD (02/29/20) CT ANGIOGRAPHY NECK (02/29/20) CT HEAD/BRAIN W/O DYE (02/29/20) ELECTROCARDIOGRAM TRACING (02/29/20) EXTREMITY STUDY (01/09/19) GLUCOSE BLOOD TEST (02/29/20) GLYCOSYLATED HEMOGLOBIN TEST (04/04/19) HEP B CORE ANTIBODY IGM (12/03/19) HEPATITIS C AB TEST (12/03/19) HEPATITIS C REVRS TRNSCRPJ (01/01/20) INSERT TEMP BLADDER CATH (02/29/20) LIPID PANEL (04/04/19) METABOLIC PANEL TOTAL CA (12/07/20) OCCULT BLD FECES 1-3 TESTS (08/06/14) OFFICE O/P EST MOD 30-39 MIN (07/03/19) PROTEIN E-PHORESIS SERUM (01/01/20) PROTEIN E-PHORESIS/URINE/CSF (01/01/20) PROTHROMBIN TIME (02/29/20) RENAL FUNCTION PANEL (09/04/20) ROUTINE VENIPUNCTURE (12/07/20) THROMBOLYTIC THERAPY STROKE (02/29/20) TTE W/DOPPLER COMPLETE (01/22/19) UR ALBUMIN SEMIQUANTITATIVE (08/06/14) URINALYSIS AUTO W/SCOPE (12/07/20) VITAMIN D 25 HYDROXY (12/03/19) X-RAY EXAM CHEST 2 VIEWS (01/09/19) (1) Acute cholecystitis SNOMED Code(s): 17732481 Code(s): K81.0 - ACUTE CHOLECYSTITIS Current Visit: Yes (2) Diabetes SNOMED Code(s): 80360492 Code(s): E11.9 - TYPE 2 DIABETES MELLITUS WITHOUT COMPLICATIONS Current Visit: Yes Problem List Initiated/Reviewed/Updated: Yes Plan: The patient's US shows a dilated and enlarged gallbladder still suspicious for acute cholecystitis. He may need to have an MR abdomen tomorrow to better characterize what pathology is causing his biliary dilation. I explained the pathophysiology of biliary disease. I told the patient that he may need to have surgery to remove his gallbladder if he does have acute cholecystitis. He will be admitted to medicine for medical management with surgery consulting. Hopefully we can improve his BUN/Cr and sodium/glucose. He is also slightly hypoxic. CXR shows borderline cardiomegally. He has known LVH with EF of 70%. It also shows low lung volumes with vascular crowding. His CT abdomen pelvis showed small bilateral pleural effusions with moderate degree of atelectasis in the right lower lobe the lungs and mild atelectasis in the left lung base. He had a small pericardial effusion. He has been dealing with chronic lower leg edema. He has low albumin on labs in the ER. He was given IV zosyn in the ER which he tolerated. Continue 3.375mg IV zosyn q 6hr. He can have ongoing Dilaudid IV for pain control. I am ok with clear liquids. Would keep npo at midnight in case he is able to go to the OR tomorrow or to MRI. Repeat labs in am (CBC, CMP). Will reasses in the am and determine next steps in treatment.
--- NOTE | 2021-03-25 19:24 | US ---
INDICATION: Cholecystitis. COMPARISON: CT of the abdomen and pelvis 03/25/2021. TECHNIQUE: Real time roblero scale imaging and color Doppler analysis was performed of the right upper quadrant. FINDINGS: Liver: The liver is normal in size and echogenicity. No focal liver lesions. Gallbladder: The gallbladder is dilated measuring 10.4 cm in diameter. Wall thickness upper limits of normal. No definite pericholecystic fluid. No wall thickening or pericholecystic fluid. Negative sonographic Ivey sign. Bile ducts: No biliary dilation. The common bile duct measures 3 mm in diameter. Pancreas: Normal where seen. Right kidney: The right kidney measures 11.6 cm in length. No hydronephrosis, calculus, or mass. Vascular: The main portal vein is patent with normal hepatopetal flow. IMPRESSION: 1. The gallbladder is dilated with wall thickness upper limits of normal. No stones are seen and the sonographic Ivey sign is negative, however findings remain suspicious for cholecystitis given appearance on CT. Correlate clinically. 2. Exam otherwise unremarkable. Dictated by Tran Cyr MD @ 03/25/2021 7:22:[address] Tran Cyr @ Mar 25 2021 7:22PM
--- NOTE | 2021-03-25 23:06 | PCM.HP.2 ---
H&P History of Present Illness - General Date of Service: 03/25/21 Admit Problem/Dx: Acute cholecystitis - History of Present Illness Initial Comments - Free Text/Narative: 71 yo male who presented with complaint of abdominal pain, nausea and vomiting f or three days. PAtient reports after eating old salsa juan jose at home he projectiled vomited at home. He reported burning across his diaphram and pain in all four quadrants. He was seen in the ED and given IV fluids, GI cocktail and prescribed zofran. He developed constipation the second day as well as a temperature of 100.1 taking at home. He reports due to the nausea he has not eating anything besides two tortillas and two eggs. He has been passing gas. Patient reports due to the pain he has been taking shallow breath He thinks he has been getting short of breath due to the difficulty of taking in a deep breath. Patient saw Dr. Garcia today who ordered a CT scan of the abdomen. The Radiologist reported a large degree of inflammation around the gallbladder, no gallbladder calculi seen. There were small bilateral pleural effusions, cardiomegaly, and small pericardial effusion. He had atelectasis in the lung bases. He was sent to the ER were DR. Schwartz was consulted. Ultrasound of the abdomen reported distented gallbladder with wall thickening at the upper limits of normal. Ivey sign negative. He denies any history of chest pain. He reports no orthopnea. and prior to the abdominal pain had no shortness of breath. Dr Charles is his PCP and ordered an Echocardiogram on 03/17/21 to work up leg edema. They were considering amlodipine as a potential cause of his lower leg edema. Echocardiogram reported EF of 70%, left ventricular hypertrophy, no pericardial fluid. PAtient has a history of chronic kidney disease and reports his torsemide was recently decreased from 30 to 10mg daily due to elevated creatinine levels. right upper abdomen Pain Score (Numeric/FACES): 0 - Related Data Allergies/Adverse Reactions: Allergies Allergy/AdvReac Type Severity Reaction Status Date / Time gluten Allergy Blisters Verified 03/25/21 20:51 Penicillins Allergy Other Verified 03/26/21 01:38 Home Medications: Home Meds Insulin Aspart [NovoLOG] 1 unit PO ASDIRECTED 03/22/21 [History] Ondansetron [Zofran ODT] 4 mg PO Q6H PRN #8 tab.dis 03/22/21 [Rx] B Complex W-C No.20/Folic Acid [[place] Caps Softgel] 1 mg PO DAILY 03/26/21 [History] RX: Torsemide 60 mg PO DAILY 03/26/21 [History] allopurinoL [Zyloprim] 100 mg PO DAILY 03/26/21 [History] amLODIPine Besylate [Amlodipine Besylate] 10 mg PO DAILY 03/26/21 [History] atorvaSTATin [Lipitor] 20 mg PO DAILY 03/26/21 [History] ramipriL [Ramipril] 2.5 mg PO DAILY 03/26/21 [History] Past Medical History HEENT History: Reports: Impaired Vision Cardiovascular History: Reports: Hypertension Respiratory History: Reports: None Gastrointestinal History: Reports: Celiac Disease Genitourinary History: Reports: None Musculoskeletal History: Reports: Fracture Other Musculoskeletal History: Left Leg Fracture Neurological History: Reports: None, Neuropathy, Diabetic Psychiatric History: Reports: None Endocrine/Metabolic History: Reports: Diabetes, Type I Insulin Pump Model and Medical Coordinator Pesticide Use: T[employer] LIST [place] X2 Type of Insulin Used in Pump: Novolog When was Your Last Insulin Site/Set Changed: 03/25/21 Do You Have Enough Pump Supplies for Your Hospital Stay: Yes Who Manages Your Pump: Patient (Self) Basal Rate (Units/hr): 1 Units of Insulin Per Gram of Carbohydrates:: 1:4 Do You Give Correction Boluses or Sliding Scale: Yes Amount (Units): 2 - 10 Glucose Above mg/dl: 120 Correction Bolus/Sliding Scale Comments: Target BG 120 Patient Able to Demonstrate: Current Pump Settings (Basal Rates), Describe How to Change Infusion Set & Insertion Set, Home Meter Results within 15% of Hospital Meter Results, How to Get to Bolus Settings & Administer if Needed, Suspend Pump Hematologic History: Reports: None Immunologic History: Reports: None Oncologic (Cancer) History: Reports: Other (See Below) Other Oncologic History: Skin Dermatologic History: Reports: None, Eczema - Infectious Disease History Infectious Disease History: Reports: Chicken Pox, Measles, Novel Coronavirus - Past Surgical History Other HEENT Surgeries/Procedures: Patient wears glasses. Male Surgical History: Reports: Other (See Below) Other Male Surgeries/Procedures: Surgery for undescended testicle in preschool Oncologic Surgical History: Reports: Other (See Below) Other Oncologic Surgeries/Procedures: Skin cancers - Dermatological Surgical History: Reports: Other (See Below) Social & Family History - Family History Family Medical History: No Pertinent Family History - Tobacco Use Tobacco Use Status *Q: Former Tobacco User Used Tobacco, but Quit: Yes Month/Year Tobacco Last Used: 12/1992 Second Hand Smoke Exposure: No - Caffeine Use Caffeine Use: Reports: None - Alcohol Use Days Per Week of Alcohol Use: 7 Number of Drinks Per Day: 2 Total Drinks Per Week: 14 Date of Last Drink: 03/21/21 - Recreational Drug Use Recreational Drug Use: No H&P Review of Systems - Review of Systems: Review Of Systems: Comprehensive ROS is negative, except as noted in HPI. Exam - Exam Exam: See Below - Vital Signs Vital Signs: Last Vital Signs Temp 37.3 C 03/25/21 20:50 Pulse 91 03/25/21 20:50 Resp 18 03/25/21 20:50 BP 145/57 H 03/25/21 20:50 Pulse Ox 94 L 03/25/21 20:59 Weight: 107.728 kg - Exam General: Alert, Oriented HEENT: Mucosa Moist & [place] Neck: Supple Lungs: Clear to Auscultation, Normal Respiratory Effort Cardiovascular: Regular Rate, Regular Rhythm GI/Abdominal Exam: Normal Bowel Sounds, Soft, Non-Tender Extremities: Non-Tender, Pedal Edema (mild) Skin: Warm, Dry, Intact Neurological: Cranial Nerves Intact. No: Focal Deficit - Patient Data Lab Results Last 24 hrs: Laboratory Results - last 24 hr 03/25/21 03/25/21 03/25/21 Range/Units 18:07 18:07 18:07 WBC 9.49 (4.0-11.0) K/uL RBC 4.03 L (4.50-5.90) M/uL Hgb 12.3 L (13.0-17.0) g/dL Hct 35.2 L (38.0-50.0) % MCV 87.3 (80.0-98.0) fL MCH 30.5 (27.0-32.0) pg MCHC 34.9 (31.0-37.0) g/dL RDW Std Deviation 46.5 (28.0-62.0) fl RDW Coeff of Mariah 14 (11.0-15.0) % Plt Count 121 L (150-400) K/uL MPV 11.40 (7.40-12.00) fL Neut % (Auto) 89.6 H (48.0-80.0) % Lymph % (Auto) 3.6 L (16.0-40.0) % [place] % (Auto) 6.6 (0.0-15.0) % Eos % (Auto) 0.1 (0.0-7.0) % Baso % (Auto) 0.1 (0.0-1.5) % Neut # (Auto) 8.5 H (1.4-5.7) K/uL Lymph # (Auto) 0.3 L (0.6-2.4) K/uL [place] # (Auto) 0.6 (0.0-0.8) K/uL Eos # (Auto) 0.0 (0.0-0.7) K/uL Baso # (Auto) 0.0 (0.0-0.1) K/uL Nucleated RBC % 0.0 /100WBC Nucleated RBCs # 0 K/uL INR 0.91 Sodium (136-148) mmol/L Potassium (3.5-5.1) mmol/L Chloride (98-107) mmol/L Carbon Dioxide (21.0-32.0) mmol/L BUN (7.0-18.0) mg/dL Creatinine (0.8-1.3) mg/dL Est Cr Clr Drug Dosing mL/min Estimated GFR (MDRD) ml/min Glucose (74-106) mg/dL POC Glucose (70-99) mg/dL Lactic Acid (0.4-2.0) mmol/L Calcium (8.5-10.1) mg/dL Magnesium (1.8-2.4) mg/dL Total Bilirubin (0.2-1.0) mg/dL AST (15-37) IU/L ALT (14-63) IU/L Alkaline Phosphatase (46-116) U/L Troponin I (0.000-0.056) ng/mL B-Natriuretic Peptide (<100) PG/ML Total Protein (6.4-8.2) g/dL Albumin (3.4-5.0) g/dL Globulin (2.6-4.0) g/dL Albumin/Globulin Ratio (0.9-1.6) SARS-CoV-2 RNA (RAYNE) NEGATIVE (NEGATIVE) 03/25/21 03/25/21 03/25/21 Range/Units 18:07 18:07 18:07 WBC (4.0-11.0) K/uL RBC (4.50-5.90) M/uL Hgb (13.0-17.0) g/dL Hct (38.0-50.0) % MCV (80.0-98.0) fL MCH (27.0-32.0) pg MCHC (31.0-37.0) g/dL RDW Std Deviation (28.0-62.0) fl RDW Coeff of Mariah (11.0-15.0) % Plt Count (150-400) K/uL MPV (7.40-12.00) fL Neut % (Auto) (48.0-80.0) % Lymph % (Auto) (16.0-40.0) % [place] % (Auto) (0.0-15.0) % Eos % (Auto) (0.0-7.0) % Baso % (Auto) (0.0-1.5) % Neut # (Auto) (1.4-5.7) K/uL Lymph # (Auto) (0.6-2.4) K/uL [place] # (Auto) (0.0-0.8) K/uL Eos # (Auto) (0.0-0.7) K/uL Baso # (Auto) (0.0-0.1) K/uL Nucleated RBC % /100WBC Nucleated RBCs # K/uL INR Sodium 129 L (136-148) mmol/L Potassium 3.8 (3.5-5.1) mmol/L Chloride 95 L (98-107) mmol/L Carbon Dioxide 26.1 (21.0-32.0) mmol/L BUN 25 H (7.0-18.0) mg/dL Creatinine 1.5 H (0.8-1.3) mg/dL Est Cr Clr Drug Dosing 49.50 mL/min Estimated GFR (MDRD) 46.4 ml/min Glucose 155 H (74-106) mg/dL POC Glucose (70-99) mg/dL Lactic Acid 1.3 (0.4-2.0) mmol/L Calcium 8.1 L (8.5-10.1) mg/dL Magnesium 1.8 (1.8-2.4) mg/dL Total Bilirubin 0.4 (0.2-1.0) mg/dL AST 20 (15-37) IU/L ALT 25 (14-63) IU/L Alkaline Phosphatase 95 (46-116) U/L Troponin I < 0.050 (0.000-0.056) ng/mL B-Natriuretic Peptide (<100) PG/ML Total Protein 6.0 L (6.4-8.2) g/dL Albumin 1.9 L (3.4-5.0) g/dL Globulin 4.1 H (2.6-4.0) g/dL Albumin/Globulin Ratio 0.5 L (0.9-1.6) SARS-CoV-2 RNA (RAYNE) (NEGATIVE) 03/25/21 03/25/21 Range/Units 18:07 21:28 WBC (4.0-11.0) K/uL RBC (4.50-5.90) M/uL Hgb (13.0-17.0) g/dL Hct (38.0-50.0) % MCV (80.0-98.0) fL MCH (27.0-32.0) pg MCHC (31.0-37.0) g/dL RDW Std Deviation (28.0-62.0) fl RDW Coeff of Mariah (11.0-15.0) % Plt Count (150-400) K/uL MPV (7.40-12.00) fL Neut % (Auto) (48.0-80.0) % Lymph % (Auto) (16.0-40.0) % [place] % (Auto) (0.0-15.0) % Eos % (Auto) (0.0-7.0) % Baso % (Auto) (0.0-1.5) % Neut # (Auto) (1.4-5.7) K/uL Lymph # (Auto) (0.6-2.4) K/uL [place] # (Auto) (0.0-0.8) K/uL Eos # (Auto) (0.0-0.7) K/uL Baso # (Auto) (0.0-0.1) K/uL Nucleated RBC % /100WBC Nucleated RBCs # K/uL INR Sodium (136-148) mmol/L Potassium (3.5-5.1) mmol/L Chloride (98-107) mmol/L Carbon Dioxide (21.0-32.0) mmol/L BUN (7.0-18.0) mg/dL Creatinine (0.8-1.3) mg/dL Est Cr Clr Drug Dosing mL/min Estimated GFR (MDRD) ml/min Glucose (74-106) mg/dL POC Glucose 182 H (70-99) mg/dL Lactic Acid (0.4-2.0) mmol/L Calcium (8.5-10.1) mg/dL Magnesium (1.8-2.4) mg/dL Total Bilirubin (0.2-1.0) mg/dL AST (15-37) IU/L ALT (14-63) IU/L Alkaline Phosphatase (46-116) U/L Troponin I (0.000-0.056) ng/mL B-Natriuretic Peptide 181 H (<100) PG/ML Total Protein (6.4-8.2) g/dL Albumin (3.4-5.0) g/dL Globulin (2.6-4.0) g/dL Albumin/Globulin Ratio (0.9-1.6) SARS-CoV-2 RNA (RAYNE) (NEGATIVE) Result Diagrams: 03/26/21 05:48 03/26/21 05:48 Sepsis Event Note - Evaluation Sepsis Screening Result: No Definite Risk - Focused Exam Vital Signs: Vital Signs Temp Pulse Resp BP BP Pulse Ox Pulse Ox 03/25/21 20:59 94 L 03/25/21 20:50 37.3 C 91 18 145/57 H 89 L 03/25/21 19:03 96 03/25/21 18:02 36.1 C 94 18 165/77 H 90 L Problem List Initiated/Reviewed/Updated: Yes Orders Last 24hrs: Active Orders 24 hr Category Date Time Status Admission Status [Patient Status] [ADT] Stat ADT 03/25/21 19:39 Active Accu Check [Blood Glucose Check, Bedside] [RC] Q6H Care 03/26/21 03:00 Active Cardiac Monitoring [RC] . DIRECTED Care 03/25/21 18:10 Active EKG 12 Lead [EKG Documentation Completion] [RC] STAT Care 03/25/21 19:40 Active Pulse Oximetry [RC] ASDIRECTED Care 03/25/21 18:10 Active RT Incentive Spirometry [RC] Q1HWA Care 03/25/21 22:54 Ordered Telemetry Monitoring [Cardiac Monitoring] [RC] . Care 03/25/21 20:08 Active DIRECTED [employer] Diet [DIET] Diet 03/25/21 Breakfast Active Clear Liquid Diet [DIET] Diet 03/25/21 Breakfast Active NPO After Midnight [Nothing per Oral After Midnight Diet 03/25/21 Breakfast Active Diet] [DIET] CULTURE BLOOD [BC] Stat Lab 03/25/21 18:07 Received CULTURE BLOOD [BC] Stat Lab 03/25/21 18:27 Received Piperacillin/Tazobactam [Piperacil-Tazobact] 3.375 gm Med 03/26/21 02:00 Active Sodium Chloride 0.9% [Normal Saline] 50 ml IV Q6H Blood Culture x2 Reflex Set [OM.PC] Stat Oth 03/25/21 18:09 Ordered Medication Orders Piperacillin Sod/Tazobactam (Sod 3.375 gm/ Sodium Chloride) 50 mls @ 100 mls/hr IV Q6H EMMY Assessment/Plan Comment:: 71 yo male admitted for acute cholecystitis Acute cholecystitis: Dr. 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 Hypertension: will resume amlodipine, hold ramipril for now due to possible surgery tomorrow DM: patient uses insulin pump will switch to lantus 18 units daily with sliding scale novolog DVT ppx: heparin.
[2021-03-25] MEDS ORDERED: 50% Dextrose in Water 50 ML Syringe IVPUSH PRN (23:24)
[2021-03-25] MEDS ORDERED: Glucagon,Human Recombinant 1 MG Vial IM PRN (23:24)
[2021-03-25] MEDS ORDERED: Ondansetron 4 MG/2 ML SDV IVPUSH PRN (23:26)
[2021-03-25] MEDS ORDERED: Insulin Glargine,Human Rec. Analog 100 Units/ML 3 ML Pen SUBCUT ONE (23:30)
[2021-03-26] MEDS: Insulin Aspart 100 Units/ML 3 ML Pen SUBCUT SCH ×5 (00:07→23:15)
[2021-03-26] MEDS: Heparin Sodium 5,000 Units/ML Vial SUBCUT SCH ×4 (00:11→23:17)
[2021-03-26] MEDS: Piperacillin/Tazobactam 3.375 GM in Sodium Chloride 0.9% 50 ML IV SCH ×4 (02:55→20:14)
--- NOTE | 2021-03-26 05:42 | PCM.EKG ---
#1 Interpretation EKG Date: 03/25/21 Time: 20:10 Rhythm: NSR Rate (Beats/Min): 83 [place]: LAD-Left [place] Deviation P-Wave: Present QRS: Normal ST-T: Normal (T wave inversion I, AVL) QT: Normal Comparison: No Change (03/22/21) EKG Interpretation Comments: Sinus Rhythm with LVH
[2021-03-26] MEDS: HYDROmorphone 1 MG/ML Syringe IVPUSH PRN ×3 (06:01→09:35)
[2021-03-26 06:30] LABS: CARBON DIOXIDE,CO2 24.1 mmol/L (21.0-32.0); POTASSIUM,K 3.9 mmol/L (3.5-5.1)
--- NOTE | 2021-03-26 08:01 | EDM.PDOC ---
ED HPI GENERAL MEDICAL PROBLEM - General Chief Complaint: Abdominal Pain Stated Complaint: GALLBLADDER Time Seen by Provider: 03/25/21 17:34 Source of Information: Reports: Patient History Limitations: Reports: No Limitations - History of Present Illness INITIAL COMMENTS - FREE TEXT/NARRATIVE: CHIEF COMPLAINT(S): "Acute cholecystitis." HISTORY OF PRESENT ILLNESS: This is a 71-year-old man with a past medical history of hypertension, BPH, type 1 diabetes mellitus, CKD, hyperlipidemia who comes to the emergency department with a chief complaint of acute cholecystitis. The patient was sent in by his primary care physician. He states that he was seen in the ER earlier this week with nausea and vomiting since that time he has had increased pain in his abdomen. He went to his primary care physician where they did a CT abdomen pelvis which showed that his gallbladder appeared to be distended with inflammation. Therefore they sent him to the emergency department. He currently states that he feels overall well other than the pain in his abdomen. He denies any chest pain, shortness of breath any current nausea or vomiting, diarrhea, constipation. Denies any recent travel, recent surgery, prior history of DVT or PE. REVIEW OF SYSTEMS: Constitutional: Denies fever, chills. Eyes: Denies eye pain Ears, Nose, Mouth, & Throat: Denies earache Cardiovascular: Denies chest pain Respiratory: Denies shortness of breath Gastrointestinal: Positive for upper abdominal pain. Denies current nausea, vomiting, diarrhea, hematochezia, melena. Genitourinary: Denies hematuria Skin:Denies a rash MSK: Denies joint pain Neurological: Denies blurred vision, numbness, tingling, weakness psychiatric: Denies depression PAST MEDICAL HISTORY: As per history of present illness and as reviewed below otherwise noncontributory. SURGICAL HISTORY: As per history of present illness and as reviewed below otherwise noncontributory. SOCIAL HISTORY: As per history of present illness and as reviewed below otherwise noncontributory. FAMILY HISTORY: As per history of present illness and as reviewed below otherwise noncontributory. EXAMINATION OF ORGAN SYSTEMS/BODY AREAS: Constitutional: Blood pressure is 165/77, heart rate 94, respiratory rate 18 with an oxygen saturation of 90% on room air. Temperature 36.1 General: Overall well-appearing man who is in no acute distress Psychiatric: Appropriate mood and affect. Eyes: No scleral icterus or conjunctival erythema ENMT: Moist mucous membranes. No pharyngeal erythema Cardiovascular: Regular, rate, and rhythm. No gallops, murmurs, or rubs. Bilateral upper extremity pulses symmetric and intact. 1+ lower extremity pitting edema bilaterally no JVD. Respiratory: Lungs clear to auscultation bilaterally. No wheezes, rales, or rhonchi. No increased work of breathing. Patient speaking in full sentences. Gastrointestinal: Soft, tenderness to palpation in the epigastric and right upper quadrant. Nondistended. No rebound or guarding. Normoactive bowel sounds Genitourinary: No suprapubic tenderness Musculoskeletal: Normal range of motion. Skin: No lesions or abrasions. Neurological: Alert, GCS 15 MEDICAL DECISION MAKING AND COURSE IN THE ED WITH INTERPRETATION/REVIEW OF DIAGNOSTIC STUDIES: This is a 71-year-old man with a past medical history of hypertension, BPH, type 1 diabetes mellitus, CKD, hyperlipidemia who comes to the emergency department with a chief complaint of acute cholecystitis. At the current time we do not have any CT read report or labs. Will obtain repeat labs including CBC, INR, CMP, troponin, BNP and urinalysis. Will obtain a Covid swab as the patient will likely go to the operating room. I contacted Dr. Starks who was able to review the imaging. She states that the patient does have inflammation around the gallbladder and would like a right upper quadrant ultrasound. In addition to this there was bilateral pleural effusions and a small pericardial effusion. We will provide the patient with 0.5 mg of IV push Dilaudid for pain relief. We will provide him with 1 L of lactated Ringer's bolus. We did obtain blood cultures and a lactic acid. Only 1 L will be administered at this time given the evidence of fluid overload and after reevaluation after lactic acid. The patient's blood pressure is currently normal therefore 30 cc/kg is not needed. We will start the patient on IV Zosyn. Laboratory: CBC reveals a normocytic anemia with a hemoglobin of 12.3 and hematocrit of 35.2, thrombocytopenia with a platelet count of 121. INR is normal. CMP reveals hyponatremia at 129, hypochloremia at 95, elevated BUN at 25 and a creatinine of 1.5, glucose of 155, hypocalcemia at 8.1, lactic acid was 1.3. Magnesium was normal at 1.8. Troponin was negative. BNP is elevated at 181. Given the patient's lactic acid is normal the patient will not receive a total of 30 cc/kg bolus as the patient has evidence of fluid overload. Dr. Schwartz did come and evaluate the patient at the time of my reevaluation the patient's pain had improved. The radiological images were viewed by myself along with reading the report from the radiologist. Right upper quadrant ultrasound reveals a dilated gallbladder with wall thickening. No stones are seen and sonographic Ivey sign is negative. Chest x-ray does not reveal any acute cardiopulmonary findings. After labs and imaging the patient was arranged for admission by general surgeon Dr. Schwartz and the patient will be admitted to the medicine service as discussed with Dr. Silva by paralegal specialist. DISPOSITION: Patient was admitted to the hospital in stable condition CONDITION: Fair PROCEDURES: None FINAL IMPRESSION(S)/DIAGNOSES: 1. Acute abdominal pain, possible acute cholecystitis 2. Acute hypoxia likely secondary to pleural effusion 3. Acute fluid overload likely secondary to hypoalbuminemia Luis Shaffer M.D. right upper abdomen Pain Score (Numeric/FACES): 0 - Related Data Allergies Allergy/AdvReac Type Severity Reaction Status Date / Time gluten Allergy Blisters Verified 03/25/21 20:51 Penicillins Allergy Other Verified 03/26/21 01:38 Home Meds: Home Meds Insulin Aspart [NovoLOG] 1 unit PO ASDIRECTED 03/22/21 [History] Ondansetron [Zofran ODT] 4 mg PO Q6H PRN #8 tab.dis 03/22/21 [Rx] Past Medical History HEENT History: Reports: Impaired Vision Cardiovascular History: Reports: Hypertension Respiratory History: Reports: None Gastrointestinal History: Reports: Celiac Disease Genitourinary History: Reports: None Musculoskeletal History: Reports: Fracture Other Musculoskeletal History: Left Leg Fracture Neurological History: Reports: None, Neuropathy, Diabetic Psychiatric History: Reports: None Endocrine/Metabolic History: Reports: Diabetes, Type I Insulin Pump Model and Clerical Adjudicator: Tandem [place] X2 Type of Insulin Used in Pump: Novolog When was Your Last Insulin Site/Set Changed: 03/25/21 Do You Have Enough Pump Supplies for Your Hospital Stay: Yes Who Manages Your Pump: Patient (Self) Basal Rate (Units/hr): 1 Units of Insulin Per Gram of Carbohydrates:: 1:4 Do You Give Correction Boluses or Sliding Scale: Yes Amount (Units): 2 - 10 Glucose Above mg/dl: 120 Correction Bolus/Sliding Scale Comments: Target BG 120 Patient Able to Demonstrate: Current Pump Settings (Basal Rates), Describe How to Change Infusion Set & Insertion Set, Home Meter Results within 15% of Hospital Meter Results, How to Get to Bolus Settings & Administer if Needed, Suspend Pump Hematologic History: Reports: None Immunologic History: Reports: None Oncologic (Cancer) History: Reports: Other (See Below) Other Oncologic History: Skin Dermatologic History: Reports: None, Eczema - Infectious Disease History Infectious Disease History: Reports: Chicken Pox, Measles, Novel Coronavirus - Past Surgical History Other HEENT Surgeries/Procedures: Patient wears glasses. Male Surgical History: Reports: Other (See Below) Other Male Surgeries/Procedures: Surgery for undescended testicle in preschool Oncologic Surgical History: Reports: Other (See Below) Other Oncologic Surgeries/Procedures: Skin cancers - Dermatological Surgical History: Reports: Other (See Below) Social & Family History - Family History Family Medical History: No Pertinent Family History - Tobacco Use Tobacco Use Status *Q: Former Tobacco User Used Tobacco, but Quit: Yes Month/Year Tobacco Last Used: 12/1992 Second Hand Smoke Exposure: No - Caffeine Use Caffeine Use: Reports: None - Alcohol Use Days Per Week of Alcohol Use: 7 Number of Drinks Per Day: 2 Total Drinks Per Week: 14 Date of Last Drink: 03/21/21 - Recreational Drug Use Recreational Drug Use: No ED ROS GENERAL - Review of Systems Review Of Systems: See Below ED EXAM, GENERAL - Physical Exam Exam: See Below GI/Abdominal: Normal Bowel Sounds, Soft, Non-Tender Extremities: Non-Tender, No Pedal Edema Course - Vital Signs Last Recorded V/S: Last Vital Signs Temp 37.7 C 03/26/21 04:00 Pulse 94 03/26/21 04:00 Resp 20 03/26/21 04:00 BP 146/73 H 03/26/21 04:00 Pulse Ox 93 L 03/26/21 04:00 - Orders/Labs/Meds Orders: Active Orders 24 hr Category Date Time Status Admission Status [Patient Status] [ADT] Stat ADT 03/25/21 19:39 Active Cardiac Monitoring [RC] . DIRECTED Care 03/25/21 20:08 Active EKG 12 Lead [EKG Documentation Completion] [RC] STAT Care 03/25/21 19:40 Active Pulse Oximetry [RC] ASDIRECTED Care 03/25/21 18:10 Active CULTURE BLOOD [] Stat Lab 03/25/21 18:07 Received CULTURE BLOOD [BC] Stat Lab 03/25/21 18:27 Received Blood Culture x2 Reflex Set [OM.PC] Stat Oth 03/25/21 18:09 Ordered Medication Orders Amlodipine Besylate (Amlodipine 5 Mg Tab) 10 mg PO DAILY EMMY Dextrose/Water (50% Dextrose In Water 50 Ml Syringe) 50 ml IVPUSH ASDIRECTED PRN PRN Reason: Hypoglycemia Glucagon (Glucagon,Human Recombinant 1 Mg Vial) 1 mg IM ASDIRECTED PRN PRN Reason: Hypoglycemia Heparin Sodium (Porcine) (Heparin Sodium 5,000 Units/Ml Vial) 5,000 units SUBCUT Q8H [facility] Last Admin: 03/26/21 00:11 Dose: 5,000 units Documented by: TERELL Hydromorphone HCl (Hydromorphone 1 Mg/Ml Syringe) 0.5 mg IVPUSH Q2H PRN PRN Reason: Pain (severe 7-10) Last Admin: 03/26/21 07:17 Dose: 0.5 mg Documented by: Admin: 03/26/21 06:01 Dose: 0.5 mg Documented by: TERELL Piperacillin Sod/Tazobactam (Sod 3.375 gm/ Sodium Chloride) 50 mls @ 100 mls/hr IV Q6H [facility] Last Admin: 03/26/21 02:55 Dose: 100 mls/hr Documented by: TERELL Insulin Aspart (Insulin Aspart 100 Units/Ml 3 Ml Pen) 0 unit SUBCUT Q6H [facility]; Protocol Last Admin: 03/26/21 05:48 Dose: Not Given Documented by: Admin: 03/26/21 00:07 Dose: Not Given Documented by: TERELL Insulin Glargine (Insulin Glargine,Human Rec. Analog 100 Units/Ml 3 Ml Pen) 18 units SUBCUT BEDTIME [facility] Ondansetron HCl (Ondansetron 4 Mg/2 Ml Sdv) 4 mg IVPUSH Q4H PRN PRN Reason: Nausea Labs: Laboratory Tests 03/25/21 03/25/21 03/25/21 Range/Units 18:07 18:07 18:07 WBC 9.49 (4.0-11.0) K/uL RBC 4.03 L (4.50-5.90) M/uL Hgb 12.3 L (13.0-17.0) g/dL Hct 35.2 L (38.0-50.0) % MCV 87.3 (80.0-98.0) fL MCH 30.5 (27.0-32.0) pg MCHC 34.9 (31.0-37.0) g/dL RDW Std Deviation 46.5 (28.0-62.0) fl RDW Coeff of Mariah 14 (11.0-15.0) % Plt Count 121 L (150-400) K/uL MPV 11.40 (7.40-12.00) fL Neut % (Auto) 89.6 H (48.0-80.0) % Lymph % (Auto) 3.6 L (16.0-40.0) % [place] % (Auto) 6.6 (0.0-15.0) % Eos % (Auto) 0.1 (0.0-7.0) % Baso % (Auto) 0.1 (0.0-1.5) % Neut # (Auto) 8.5 H (1.4-5.7) K/uL Lymph # (Auto) 0.3 L (0.6-2.4) K/uL [place] # (Auto) 0.6 (0.0-0.8) K/uL Eos # (Auto) 0.0 (0.0-0.7) K/uL Baso # (Auto) 0.0 (0.0-0.1) K/uL Nucleated RBC % 0.0 /100WBC Nucleated RBCs # 0 K/uL INR 0.91 Sodium (136-148) mmol/L Potassium (3.5-5.1) mmol/L Chloride (98-107) mmol/L Carbon Dioxide (21.0-32.0) mmol/L BUN (7.0-18.0) mg/dL Creatinine (0.8-1.3) mg/dL Est Cr Clr Drug Dosing mL/min Estimated GFR (MDRD) ml/min Glucose (74-106) mg/dL Lactic Acid (0.4-2.0) mmol/L Calcium (8.5-10.1) mg/dL Magnesium (1.8-2.4) mg/dL Total Bilirubin (0.2-1.0) mg/dL AST (15-37) IU/L ALT (14-63) IU/L Alkaline Phosphatase (46-116) U/L Troponin I (0.000-0.056) ng/mL B-Natriuretic Peptide (<100) PG/ML Total Protein (6.4-8.2) g/dL Albumin (3.4-5.0) g/dL Globulin (2.6-4.0) g/dL Albumin/Globulin Ratio (0.9-1.6) SARS-CoV-2 RNA (RAYNE) NEGATIVE (NEGATIVE) 03/25/21 03/25/21 03/25/21 Range/Units 18:07 18:07 18:07 WBC (4.0-11.0) K/uL RBC (4.50-5.90) M/uL Hgb (13.0-17.0) g/dL Hct (38.0-50.0) % MCV (80.0-98.0) fL MCH (27.0-32.0) pg MCHC (31.0-37.0) g/dL RDW Std Deviation (28.0-62.0) fl RDW Coeff of Mariah (11.0-15.0) % Plt Count (150-400) K/uL MPV (7.40-12.00) fL Neut % (Auto) (48.0-80.0) % Lymph % (Auto) (16.0-40.0) % [place] % (Auto) (0.0-15.0) % Eos % (Auto) (0.0-7.0) % Baso % (Auto) (0.0-1.5) % Neut # (Auto) (1.4-5.7) K/uL Lymph # (Auto) (0.6-2.4) K/uL [place] # (Auto) (0.0-0.8) K/uL Eos # (Auto) (0.0-0.7) K/uL Baso # (Auto) (0.0-0.1) K/uL Nucleated RBC % /100WBC Nucleated RBCs # K/uL INR Sodium 129 L (136-148) mmol/L Potassium 3.8 (3.5-5.1) mmol/L Chloride 95 L (98-107) mmol/L Carbon Dioxide 26.1 (21.0-32.0) mmol/L BUN 25 H (7.0-18.0) mg/dL Creatinine 1.5 H (0.8-1.3) mg/dL Est Cr Clr Drug Dosing 49.50 mL/min Estimated GFR (MDRD) 46.4 ml/min Glucose 155 H (74-106) mg/dL Lactic Acid 1.3 (0.4-2.0) mmol/L Calcium 8.1 L (8.5-10.1) mg/dL Magnesium 1.8 (1.8-2.4) mg/dL Total Bilirubin 0.4 (0.2-1.0) mg/dL AST 20 (15-37) IU/L ALT 25 (14-63) IU/L Alkaline Phosphatase 95 (46-116) U/L Troponin I < 0.050 (0.000-0.056) ng/mL B-Natriuretic Peptide (<100) PG/ML Total Protein 6.0 L (6.4-8.2) g/dL Albumin 1.9 L (3.4-5.0) g/dL Globulin 4.1 H (2.6-4.0) g/dL Albumin/Globulin Ratio 0.5 L (0.9-1.6) SARS-CoV-2 RNA (RAYNE) (NEGATIVE) 03/25/21 Range/Units 18:07 WBC (4.0-11.0) K/uL RBC (4.50-5.90) M/uL Hgb (13.0-17.0) g/dL Hct (38.0-50.0) % MCV (80.0-98.0) fL MCH (27.0-32.0) pg MCHC (31.0-37.0) g/dL RDW Std Deviation (28.0-62.0) fl RDW Coeff of Mariah (11.0-15.0) % Plt Count (150-400) K/uL MPV (7.40-12.00) fL Neut % (Auto) (48.0-80.0) % Lymph % (Auto) (16.0-40.0) % [place] % (Auto) (0.0-15.0) % Eos % (Auto) (0.0-7.0) % Baso % (Auto) (0.0-1.5) % Neut # (Auto) (1.4-5.7) K/uL Lymph # (Auto) (0.6-2.4) K/uL [place] # (Auto) (0.0-0.8) K/uL Eos # (Auto) (0.0-0.7) K/uL Baso # (Auto) (0.0-0.1) K/uL Nucleated RBC % /100WBC Nucleated RBCs # K/uL INR Sodium (136-148) mmol/L Potassium (3.5-5.1) mmol/L Chloride (98-107) mmol/L Carbon Dioxide (21.0-32.0) mmol/L BUN (7.0-18.0) mg/dL Creatinine (0.8-1.3) mg/dL Est Cr Clr Drug Dosing mL/min Estimated GFR (MDRD) ml/min Glucose (74-106) mg/dL Lactic Acid (0.4-2.0) mmol/L Calcium (8.5-10.1) mg/dL Magnesium (1.8-2.4) mg/dL Total Bilirubin (0.2-1.0) mg/dL AST (15-37) IU/L ALT (14-63) IU/L Alkaline Phosphatase (46-116) U/L Troponin I (0.000-0.056) ng/mL B-Natriuretic Peptide 181 H (<100) PG/ML Total Protein (6.4-8.2) g/dL Albumin (3.4-5.0) g/dL Globulin (2.6-4.0) g/dL Albumin/Globulin Ratio (0.9-1.6) SARS-CoV-2 RNA (RAYNE) (NEGATIVE) Meds: Medications Generic Name Dose Route Start Last Admin Trade Name Freq PRN Reason Stop Dose Admin Amlodipine Besylate 10 mg 03/26/21 09:00 Amlodipine 5 Mg Tab PO DAILY EMMY Dextrose/Water 50 ml 03/25/21 23:24 50% Dextrose In Water 50 Ml Syringe IVPUSH ASDIRECTED PRN Hypoglycemia Glucagon 1 mg 03/25/21 23:24 Glucagon,Human Recombinant 1 Mg Vial IM ASDIRECTED PRN Hypoglycemia Heparin Sodium (Porcine) 5,000 units 03/26/21 00:00 03/26/21 00:11 Heparin Sodium 5,000 Units/Ml Vial SUBCUT 5,000 units Q8H EMMY Administration Hydromorphone HCl 0.5 mg 03/25/21 23:29 03/26/21 07:17 Hydromorphone 1 Mg/Ml Syringe IVPUSH 0.5 mg Q2H PRN Administration Pain (severe 7-10) Piperacillin Sod/Tazobactam 50 mls @ 100 mls/hr 03/26/21 02:00 03/26/21 02:55 Sod 3.375 gm/ Sodium Chloride IV 100 mls/hr Q6H EMMY Administration Insulin Aspart 0 unit 03/25/21 23:30 03/26/21 05:48 Insulin Aspart 100 Units/Ml 3 Ml Pen SUBCUT Not Given Q6H [facility] Protocol Insulin Glargine 18 units 03/26/21 21:00 Insulin Glargine,Human Rec. Analog 100 Units/Ml 3 Ml Pen SUBCUT BEDTIME [facility] Ondansetron HCl 4 mg 03/25/21 23:26 Ondansetron 4 Mg/2 Ml Sdv IVPUSH Q4H PRN Nausea Discontinued Medications Generic Name Dose Route Start Last Admin Trade Name Freq PRN Reason Stop Dose Admin Hydromorphone HCl 0.5 mg 03/25/21 18:09 03/25/21 18:34 Hydromorphone 2 Mg/Ml Syringe IVPUSH 03/25/21 18:10 0.5 mg ONETIME ONE Administration Piperacillin Sod/Tazobactam 100 mls @ 100 mls/hr 03/25/21 18:03 03/25/21 18:35 Sod 4.5 gm/ Sodium Chloride IV 03/25/21 19:02 100 mls/hr ONETIME ONE Administration Lactated Ringer's 1,000 mls @ 999 mls/hr 03/25/21 18:08 03/25/21 18:34 Ringers, Lactated IV 03/25/21 19:08 999 mls/hr .BOLUS ONE Administration Insulin Glargine 18 units 03/25/21 23:30 03/26/21 00:10 Insulin Glargine,Human Rec. Analog 100 Units/Ml 3 Ml Pen SUBCUT 03/25/21 23:31 18 units NOW ONE Administration Departure - Departure Time of Disposition: 19:39 Disposition: Refer to Observation Condition: Fair Clinical Impression: Cholecystitis - Discharge Information Sepsis Event Note (ED) - Evaluation Sepsis Screening Result: No Definite Risk - My Orders Last 24 Hours: My Active Orders 03/25/21 18:07 CULTURE BLOOD [BC] Stat 03/25/21 18:09 Blood Culture x2 Reflex Set [OM.PC] Stat 03/25/21 18:10 Pulse Oximetry [RC] ASDIRECTED 03/25/21 18:27 CULTURE BLOOD [BC] Stat 03/25/21 19:39 Admission Status [Patient Status] [ADT] Stat 03/25/21 19:40 EKG 12 Lead [EKG Documentation Completion] [RC] STAT 03/25/21 20:08 Cardiac Monitoring [RC] . DIRECTED - Assessment/Plan Last 24 Hours: My Active Orders 03/25/21 18:07 CULTURE BLOOD [BC] Stat 03/25/21 18:09 Blood Culture x2 Reflex Set [OM.PC] Stat 03/25/21 18:10 Pulse Oximetry [RC] ASDIRECTED 03/25/21 18:27 CULTURE BLOOD [BC] Stat 03/25/21 19:39 Admission Status [Patient Status] [ADT] Stat 03/25/21 19:40 EKG 12 Lead [EKG Documentation Completion] [RC] STAT 03/25/21 20:08 Cardiac Monitoring [RC] . DIRECTED
[2021-03-26] MEDS: amLODIPine 5 MG Tab PO SCH (08:31)
--- NOTE | 2021-03-26 08:46 | MR ---
INDICATION: Abdominal pain; distended gallbladder with pericholecystic inflammatory changes on the ultrasound; rule out acute cholecystitis. COMPARISON: CT abdomen and pelvis without intravenous contrast March 25, 2021; ultrasound examination of the right upper quadrant of the abdomen March 25, 2021. TECHNIQUE: MRCP; precontrast T1 and T2 weighted imaging; T2 haste imaging. FINDINGS: Distended gallbladder with pericholecystic inflammatory changes. No evidence of cholelithiasis or choledocholithiasis. No evidence of biliary duct dilatation. No pancreatic ductal dilatation. Evidence of duodenal diverticulum. Fatty infiltration of the liver. Evidence of bilateral pleural effusion. no evidence of abdominal ascites. IMPRESSION: 1. Distended gallbladder with pericholecystic inflammatory changes ;rule out acute cholecystitis. 2. No evidence of cholelithiasis or choledocholithiasis. 3. Bilateral pleural effusion. 4. Fatty liver Dictated by Karina Gonzales MD @ 03/26/2021 8:44:[address] Karina Gonzales @ Mar 26 2021 8:44AM
[2021-03-26] MEDS ORDERED: Indocyanine Green 25 MG SDV ONE (11:01)
[2021-03-26] MEDS ORDERED: fentaNYL 250 MCG/5 ML SDV ONE (11:14)
[2021-03-26] MEDS ORDERED: Propofol 200 MG/20 ML SDV ONE (11:14)
[2021-03-26] MEDS ORDERED: Ketamine 500 mg/10 ML MDV ONE (11:14)
[2021-03-26] MEDS ORDERED: Glycopyrrolate 0.2 MG/ML SDV ONE (11:16)
[2021-03-26] MEDS ORDERED: Naloxone 0.4 MG/ML Syringe IVPUSH PRN (11:16)
[2021-03-26] MEDS ORDERED: Morphine 2 MG/ML SYRINGE IVPUSH PRN (11:16)
[2021-03-26] MEDS ORDERED: Ketorolac 30 MG/ML SDV ONE (11:16)
[2021-03-26] MEDS ORDERED: Ondansetron 4 MG/2 ML SDV IVPUSH PRN ×2 (11:16→16:52)
[2021-03-26] MEDS ORDERED: HYDROmorphone 2 MG/ML Syringe IVPUSH PRN (11:16)
[2021-03-26] MEDS ORDERED: Rocuronium Bromide 50 MG/5 ML Syringe ONE (11:16)
[2021-03-26] MEDS ORDERED: Albuterol 0.083% 2.5 MG/3 ML Neb Soln NEB PRN (11:16)
[2021-03-26] MEDS ORDERED: Lidocaine 2% 5 ML SDV ONE (11:16)
[2021-03-26] MEDS ORDERED: Metoclopramide 10 MG/2 ML SDV IVPUSH PRN (11:16)
[2021-03-26] MEDS ORDERED: Sugammadex Sodium 200 MG/2 ML VIAL ONE (11:16)
[2021-03-26] MEDS ORDERED: fentaNYL 100 MCG/2 ML SDV IVPUSH PRN (11:16)
--- NOTE | 2021-03-26 11:22 | PCM.PREANE ---
Preanesthetic Assessment - Anesthesia/Transfusion/Family Hx Anesthesia History: Prior Anesthesia Without Reaction Family History of Anesthesia Reaction: No Transfusion History: Prior Transfusion Without Reaction Intubation History: Unknown - Review of Systems General: Fever, Appetite Pulmonary: Shortness of Breath Cardiovascular: Dyspnea on Exertion Gastrointestinal: Abdominal Pain, Decreased Appetite, Nausea, Vomiting Neurological: No Symptoms Other: Reports: Diabetes - Physical Assessment NPO Status Date: 03/26/21 NPO Status Time: 00:00 Vital Signs: Last Vital Signs Temp 97.2 F 03/26/21 08:18 Pulse 101 H 03/26/21 08:18 Resp 22 H 03/26/21 08:18 BP 134/66 03/26/21 08:31 Pulse Ox 92 L 03/26/21 08:18 Height: 5 ft 11 in Weight: 237 lb 8 oz ASA Class: 3 Airway Class: Mallampati = 3 Dentition: Reports: Normal Dentition Thyro-Mental Finger Breadths: 3 Mouth Opening Finger Breadths: 4 ROM/Head Extension: Limited/Partial Lungs: Decreased Breath Sounds Cardiovascular: Regular Rate, Regular Rhythm - Lab Values: Laboratory Last Values WBC 8.22 K/uL (4.0-11.0) 03/26/21 05:48 RBC 3.80 M/uL (4.50-5.90) L 03/26/21 05:48 Hgb 11.5 g/dL (13.0-17.0) L 03/26/21 05:48 Hct 33.0 % (38.0-50.0) L 03/26/21 05:48 MCV 86.8 fL (80.0-98.0) 03/26/21 05:48 MCH 30.3 pg (27.0-32.0) 03/26/21 05:48 MCHC 34.8 g/dL (31.0-37.0) 03/26/21 05:48 RDW Std Deviation 45.7 fl (28.0-62.0) 03/26/21 05:48 RDW Coeff of Mariah 14 % (11.0-15.0) 03/26/21 05:48 Plt Count 113 K/uL (150-400) L 03/26/21 05:48 MPV 11.70 fL (7.40-12.00) 03/26/21 05:48 Neut % (Auto) 86.4 % (48.0-80.0) H 03/26/21 05:48 Lymph % (Auto) 3.8 % (16.0-40.0) L 03/26/21 05:48 George % (Auto) 9.6 % (0.0-15.0) 03/26/21 05:48 Eos % (Auto) 0.2 % (0.0-7.0) 03/26/21 05:48 Baso % (Auto) 0.0 % (0.0-1.5) 03/26/21 05:48 Neut # (Auto) 7.1 K/uL (1.4-5.7) H 03/26/21 05:48 Lymph # (Auto) 0.3 K/uL (0.6-2.4) L 03/26/21 05:48 George # (Auto) 0.8 K/uL (0.0-0.8) 03/26/21 05:48 Eos # (Auto) 0.0 K/uL (0.0-0.7) 03/26/21 05:48 Baso # (Auto) 0.0 K/uL (0.0-0.1) 03/26/21 05:48 Nucleated RBC % 0.0 /100WBC 03/26/21 05:48 Nucleated RBCs # 0 K/uL 03/26/21 05:48 INR 0.91 03/25/21 18:07 Sodium 130 mmol/L (136-148) L 03/26/21 05:48 Potassium 3.9 mmol/L (3.5-5.1) 03/26/21 05:48 Chloride 97 mmol/L (98-107) L 03/26/21 05:48 Carbon Dioxide 24.1 mmol/L (21.0-32.0) 03/26/21 05:48 BUN 22 mg/dL (7.0-18.0) H 03/26/21 05:48 Creatinine 1.5 mg/dL (0.8-1.3) H 03/26/21 05:48 Est Cr Clr Drug Dosing 49.50 mL/min 03/26/21 05:48 Estimated GFR (MDRD) 46.4 ml/min 03/26/21 05:48 Glucose 183 mg/dL (74-106) H 03/26/21 05:48 POC Glucose 192 mg/dL (70-99) H 03/26/21 05:46 Lactic Acid 1.3 mmol/L (0.4-2.0) 03/25/21 18:07 Calcium 7.7 mg/dL (8.5-10.1) L 03/26/21 05:48 Magnesium 1.8 mg/dL (1.8-2.4) 03/25/21 18:07 Total Bilirubin 0.4 mg/dL (0.2-1.0) 03/26/21 05:48 AST 24 IU/L (15-37) 03/26/21 05:48 ALT 26 IU/L (14-63) 03/26/21 05:48 Alkaline Phosphatase 100 U/L (46-116) 03/26/21 05:48 Troponin I < 0.050 ng/mL (0.000-0.056) 03/25/21 18:07 B-Natriuretic Peptide 181 PG/ML (<100) H 03/25/21 18:07 Total Protein 5.4 g/dL (6.4-8.2) L 03/26/21 05:48 Albumin 1.6 g/dL (3.4-5.0) L 03/26/21 05:48 Globulin 3.8 g/dL (2.6-4.0) 03/26/21 05:48 Albumin/Globulin Ratio 0.4 (0.9-1.6) L 03/26/21 05:48 SARS-CoV-2 RNA (RAYNE) NEGATIVE (NEGATIVE) 03/25/21 18:07 - Allergies Allergies/Adverse Reactions: Allergies Allergy/AdvReac Type Severity Reaction Status Date / Time gluten Allergy Blisters Verified 03/25/21 20:51 Penicillins Allergy Other Verified 03/26/21 01:38 - Blood Blood Available: No - Anesthesia Plan Pre-Op Medication Ordered: Other (zosyn) - Acknowledgements Anesthesia Type Planned: General Anesthesia Pt an Appropriate Candidate for the Planned Anesthesia: Yes Alternatives and Risks of Anesthesia Discussed w Pt/Guardian: Yes Pt/Guardian Understands and Agrees with Anesthesia Plan: Yes PreAnesthesia Questionnaire HEENT History: Reports: Impaired Vision Cardiovascular History: Reports: Hypertension Respiratory History: Reports: None, Sleep Apnea Gastrointestinal History: Reports: Celiac Disease Genitourinary History: Reports: None, Chronic Renal Insuffiency, Prostate Disorder Musculoskeletal History: Reports: Fracture Other Musculoskeletal History: Left Leg Fracture Neurological History: Reports: None, Neuropathy, Diabetic Psychiatric History: Reports: None Endocrine/Metabolic History: Reports: Diabetes, Type I Hematologic History: Reports: None Immunologic History: Reports: None Oncologic (Cancer) History: Reports: Other (See Below) Other Oncologic History: Skin Dermatologic History: Reports: None, Eczema - Infectious Disease History Infectious Disease History: Reports: Chicken Pox, Measles, Novel Coronavirus - Past Surgical History Other HEENT Surgeries/Procedures: Patient wears glasses. GI Surgical History: Reports: Other (See Below) (Rectal Surgery) Male Surgical History: Reports: Other (See Below) Other Male Surgeries/Procedures: Surgery for undescended testicle in preschool Oncologic Surgical History: Reports: Other (See Below) Other Oncologic Surgeries/Procedures: Skin cancers - Dermatological Surgical History: Reports: Other (See Below) - SUBSTANCE USE Tobacco Use Status *Q: Former Tobacco User Second Hand Smoke Exposure: No Days Per Week of Alcohol Use: 7 Number of Drinks Per Day: 2 Total Drinks Per Week: 14 Date of Last Drink: 03/21/21 Recreational Drug Use History: No - HOME MEDS Home Medications: Home Meds Insulin Aspart [NovoLOG] 1 unit PO ASDIRECTED 03/22/21 [History] Ondansetron [Zofran ODT] 4 mg PO Q6H PRN #8 tab.dis 03/22/21 [Rx] B Complex W-C No.20/Folic Acid [Justen Caps Softgel] 1 mg PO DAILY 03/26/21 [History] Torsemide 60 mg PO DAILY 03/26/21 [History] allopurinoL [Zyloprim] 100 mg PO DAILY 03/26/21 [History] amLODIPine Besylate [Amlodipine Besylate] 10 mg PO DAILY 03/26/21 [History] atorvaSTATin [Lipitor] 20 mg PO DAILY 03/26/21 [History] ramipriL [Ramipril] 2.5 mg PO DAILY 03/26/21 [History] - CURRENT (IN HOUSE) MEDS Current Meds: Current Medications Amlodipine Besylate (Amlodipine 5 Mg Tab) 10 mg PO DAILY [facility] Last Admin: 03/26/21 08:31 Dose: 10 mg Documented by: Dextrose/Water (50% Dextrose In Water 50 Ml Syringe) 50 ml IVPUSH ASDIRECTED PRN PRN Reason: Hypoglycemia Glucagon (Glucagon,Human Recombinant 1 Mg Vial) 1 mg IM ASDIRECTED PRN PRN Reason: Hypoglycemia Heparin Sodium (Porcine) (Heparin Sodium 5,000 Units/Ml Vial) 5,000 units SUBCUT Q8H [facility] Last Admin: 03/26/21 08:31 Dose: 5,000 units Documented by: Hydromorphone HCl (Hydromorphone 1 Mg/Ml Syringe) 0.5 mg IVPUSH Q2H PRN PRN Reason: Pain (severe 7-10) Last Admin: 03/26/21 09:35 Dose: 0.5 mg Documented by: Piperacillin Sod/Tazobactam (Sod 3.375 gm/ Sodium Chloride) 50 mls @ 100 mls/hr IV Q6H [facility] Last Admin: 03/26/21 08:31 Dose: 100 mls/hr Documented by: Insulin Aspart (Insulin Aspart 100 Units/Ml 3 Ml Pen) 0 unit SUBCUT Q6H [facility]; Protocol Last Admin: 03/26/21 05:48 Dose: Not Given Documented by: Insulin Glargine (Insulin Glargine,Human Rec. Analog 100 Units/Ml 3 Ml Pen) 18 units SUBCUT BEDTIME [facility] Ondansetron HCl (Ondansetron 4 Mg/2 Ml Sdv) 4 mg IVPUSH Q4H PRN PRN Reason: Nausea Discontinued Medications Fentanyl (Fentanyl 250 Mcg/5 Ml Sdv) Confirm Administered Dose 250 mcg .ROUTE .STK-MED ONE Stop: 03/26/21 11:15 Hydromorphone HCl (Hydromorphone 2 Mg/Ml Syringe) 0.5 mg IVPUSH ONETIME ONE Stop: 03/25/21 18:10 Last Admin: 03/25/21 18:34 Dose: 0.5 mg Documented by: Piperacillin Sod/Tazobactam (Sod 4.5 gm/ Sodium Chloride) 100 mls @ 100 mls/hr IV ONETIME ONE Stop: 03/25/21 19:02 Last Admin: 03/25/21 18:35 Dose: 100 mls/hr Documented by: Lactated Ringer's (Ringers, Lactated) 1,000 mls @ 999 mls/hr IV .BOLUS ONE Stop: 03/25/21 19:08 Last Admin: 03/25/21 18:34 Dose: 999 mls/hr Documented by: Indocyanine Green (Indocyanine Green 25 Mg Sdv) Confirm Administered Dose 25 mg .ROUTE .STK-MED ONE Stop: 03/26/21 11:02 Insulin Glargine (Insulin Glargine,Human Rec. Analog 100 Units/Ml 3 Ml Pen) 18 units SUBCUT NOW ONE Stop: 03/25/21 23:31 Last Admin: 03/26/21 00:10 Dose: 18 units Documented by: Ketamine HCl (Ketamine 500 Mg/10 Ml Mdv) Confirm Administered Dose 500 mg .ROUTE .STK-MED ONE Stop: 03/26/21 11:15 Propofol (Propofol 200 Mg/20 Ml Sdv) Confirm Administered Dose 200 mg .ROUTE .STK-MED ONE Stop: 03/26/21 11:15
--- NOTE | 2021-03-26 11:51 | PCM.SURGPN ---
- General Info Date of Service: 03/26/21 Functional Status: Reports: Other (patient is having more right upper quadrant abdominal pain this morning. No nausea or vomiting. No fevers or chills.) - Review of Systems General: Reports: No Symptoms HEENT: Reports: No Symptoms Pulmonary: Reports: No Symptoms Cardiovascular: Reports: No Symptoms Gastrointestinal: Reports: Abdominal Pain (RUQ ) Musculoskeletal: Reports: No Symptoms - Patient Data Vitals - Most Recent: Last Vital Signs Temp 35.8 C L 03/26/21 11:31 Pulse 89 03/26/21 11:31 Resp 20 03/26/21 11:31 BP 134/64 03/26/21 11:31 Pulse Ox 91 L 03/26/21 11:31 Weight - Most Recent: 107.728 kg I&O - Last 24 Hours: Intake & Output 03/25/21 03/26/21 03/26/21 22:59 06:59 14:59 Intake Total 360 Output Total 775 Balance -415 Lab Results Last 24 Hrs: Laboratory Results - last 24 hr 03/25/21 03/25/21 03/25/21 Range/Units 18:07 18:07 18:07 WBC 9.49 (4.0-11.0) K/uL RBC 4.03 L (4.50-5.90) M/uL Hgb 12.3 L (13.0-17.0) g/dL Hct 35.2 L (38.0-50.0) % MCV 87.3 (80.0-98.0) fL MCH 30.5 (27.0-32.0) pg MCHC 34.9 (31.0-37.0) g/dL RDW Std Deviation 46.5 (28.0-62.0) fl RDW Coeff of Mariah 14 (11.0-15.0) % Plt Count 121 L (150-400) K/uL MPV 11.40 (7.40-12.00) fL Neut % (Auto) 89.6 H (48.0-80.0) % Lymph % (Auto) 3.6 L (16.0-40.0) % [place] % (Auto) 6.6 (0.0-15.0) % Eos % (Auto) 0.1 (0.0-7.0) % Baso % (Auto) 0.1 (0.0-1.5) % Neut # (Auto) 8.5 H (1.4-5.7) K/uL Lymph # (Auto) 0.3 L (0.6-2.4) K/uL Charlotte # (Auto) 0.6 (0.0-0.8) K/uL Eos # (Auto) 0.0 (0.0-0.7) K/uL Baso # (Auto) 0.0 (0.0-0.1) K/uL Nucleated RBC % 0.0 /100WBC Nucleated RBCs # 0 K/uL INR 0.91 Sodium (136-148) mmol/L Potassium (3.5-5.1) mmol/L Chloride (98-107) mmol/L Carbon Dioxide (21.0-32.0) mmol/L BUN (7.0-18.0) mg/dL Creatinine (0.8-1.3) mg/dL Est Cr Clr Drug Dosing mL/min Estimated GFR (MDRD) ml/min Glucose (74-106) mg/dL POC Glucose (70-99) mg/dL Lactic Acid (0.4-2.0) mmol/L Calcium (8.5-10.1) mg/dL Magnesium (1.8-2.4) mg/dL Total Bilirubin (0.2-1.0) mg/dL AST (15-37) IU/L ALT (14-63) IU/L Alkaline Phosphatase (46-116) U/L Troponin I (0.000-0.056) ng/mL B-Natriuretic Peptide (<100) PG/ML Total Protein (6.4-8.2) g/dL Albumin (3.4-5.0) g/dL Globulin (2.6-4.0) g/dL Albumin/Globulin Ratio (0.9-1.6) SARS-CoV-2 RNA (RAYNE) NEGATIVE (NEGATIVE) 03/25/21 03/25/21 03/25/21 Range/Units 18:07 18:07 18:07 WBC (4.0-11.0) K/uL RBC (4.50-5.90) M/uL Hgb (13.0-17.0) g/dL Hct (38.0-50.0) % MCV (80.0-98.0) fL MCH (27.0-32.0) pg MCHC (31.0-37.0) g/dL RDW Std Deviation (28.0-62.0) fl RDW Coeff of Mariah (11.0-15.0) % Plt Count (150-400) K/uL MPV (7.40-12.00) fL Neut % (Auto) (48.0-80.0) % Lymph % (Auto) (16.0-40.0) % Charlotte % (Auto) (0.0-15.0) % Eos % (Auto) (0.0-7.0) % Baso % (Auto) (0.0-1.5) % Neut # (Auto) (1.4-5.7) K/uL Lymph # (Auto) (0.6-2.4) K/uL Charlotte # (Auto) (0.0-0.8) K/uL Eos # (Auto) (0.0-0.7) K/uL Baso # (Auto) (0.0-0.1) K/uL Nucleated RBC % /100WBC Nucleated RBCs # K/uL INR Sodium 129 L (136-148) mmol/L Potassium 3.8 (3.5-5.1) mmol/L Chloride 95 L (98-107) mmol/L Carbon Dioxide 26.1 (21.0-32.0) mmol/L BUN 25 H (7.0-18.0) mg/dL Creatinine 1.5 H (0.8-1.3) mg/dL Est Cr Clr Drug Dosing 49.50 mL/min Estimated GFR (MDRD) 46.4 ml/min Glucose 155 H (74-106) mg/dL POC Glucose (70-99) mg/dL Lactic Acid 1.3 (0.4-2.0) mmol/L Calcium 8.1 L (8.5-10.1) mg/dL Magnesium 1.8 (1.8-2.4) mg/dL Total Bilirubin 0.4 (0.2-1.0) mg/dL AST 20 (15-37) IU/L ALT 25 (14-63) IU/L Alkaline Phosphatase 95 (46-116) U/L Troponin I < 0.050 (0.000-0.056) ng/mL B-Natriuretic Peptide (<100) PG/ML Total Protein 6.0 L (6.4-8.2) g/dL Albumin 1.9 L (3.4-5.0) g/dL Globulin 4.1 H (2.6-4.0) g/dL Albumin/Globulin Ratio 0.5 L (0.9-1.6) SARS-CoV-2 RNA (RAYNE) (NEGATIVE) 03/25/21 03/25/21 03/26/21 Range/Units 18:07 21:28 00:14 WBC (4.0-11.0) K/uL RBC (4.50-5.90) M/uL Hgb (13.0-17.0) g/dL Hct (38.0-50.0) % MCV (80.0-98.0) fL MCH (27.0-32.0) pg MCHC (31.0-37.0) g/dL RDW Std Deviation (28.0-62.0) fl RDW Coeff of Mariah (11.0-15.0) % Plt Count (150-400) K/uL MPV (7.40-12.00) fL Neut % (Auto) (48.0-80.0) % Lymph % (Auto) (16.0-40.0) % Charlotte % (Auto) (0.0-15.0) % Eos % (Auto) (0.0-7.0) % Baso % (Auto) (0.0-1.5) % Neut # (Auto) (1.4-5.7) K/uL Lymph # (Auto) (0.6-2.4) K/uL Charlotte # (Auto) (0.0-0.8) K/uL Eos # (Auto) (0.0-0.7) K/uL Baso # (Auto) (0.0-0.1) K/uL Nucleated RBC % /100WBC Nucleated RBCs # K/uL INR Sodium (136-148) mmol/L Potassium (3.5-5.1) mmol/L Chloride (98-107) mmol/L Carbon Dioxide (21.0-32.0) mmol/L BUN (7.0-18.0) mg/dL Creatinine (0.8-1.3) mg/dL Est Cr Clr Drug Dosing mL/min Estimated GFR (MDRD) ml/min Glucose (74-106) mg/dL POC Glucose 182 H 220 H (70-99) mg/dL Lactic Acid (0.4-2.0) mmol/L Calcium (8.5-10.1) mg/dL Magnesium (1.8-2.4) mg/dL Total Bilirubin (0.2-1.0) mg/dL AST (15-37) IU/L ALT (14-63) IU/L Alkaline Phosphatase (46-116) U/L Troponin I (0.000-0.056) ng/mL B-Natriuretic Peptide 181 H (<100) PG/ML Total Protein (6.4-8.2) g/dL Albumin (3.4-5.0) g/dL Globulin (2.6-4.0) g/dL Albumin/Globulin Ratio (0.9-1.6) SARS-CoV-2 RNA (RAYNE) (NEGATIVE) 03/26/21 03/26/21 03/26/21 Range/Units 05:46 05:48 05:48 WBC 8.22 (4.0-11.0) K/uL RBC 3.80 L (4.50-5.90) M/uL Hgb 11.5 L (13.0-17.0) g/dL Hct 33.0 L (38.0-50.0) % MCV 86.8 (80.0-98.0) fL MCH 30.3 (27.0-32.0) pg MCHC 34.8 (31.0-37.0) g/dL RDW Std Deviation 45.7 (28.0-62.0) fl RDW Coeff of Mariah 14 (11.0-15.0) % Plt Count 113 L (150-400) K/uL MPV 11.70 (7.40-12.00) fL Neut % (Auto) 86.4 H (48.0-80.0) % Lymph % (Auto) 3.8 L (16.0-40.0) % [place] % (Auto) 9.6 (0.0-15.0) % Eos % (Auto) 0.2 (0.0-7.0) % Baso % (Auto) 0.0 (0.0-1.5) % Neut # (Auto) 7.1 H (1.4-5.7) K/uL Lymph # (Auto) 0.3 L (0.6-2.4) K/uL Charlotte # (Auto) 0.8 (0.0-0.8) K/uL Eos # (Auto) 0.0 (0.0-0.7) K/uL Baso # (Auto) 0.0 (0.0-0.1) K/uL Nucleated RBC % 0.0 /100WBC Nucleated RBCs # 0 K/uL INR Sodium 130 L (136-148) mmol/L Potassium 3.9 (3.5-5.1) mmol/L Chloride 97 L (98-107) mmol/L Carbon Dioxide 24.1 (21.0-32.0) mmol/L BUN 22 H (7.0-18.0) mg/dL Creatinine 1.5 H (0.8-1.3) mg/dL Est Cr Clr Drug Dosing 49.50 mL/min Estimated GFR (MDRD) 46.4 ml/min Glucose 183 H (74-106) mg/dL POC Glucose 192 H (70-99) mg/dL Lactic Acid (0.4-2.0) mmol/L Calcium 7.7 L (8.5-10.1) mg/dL Magnesium (1.8-2.4) mg/dL Total Bilirubin 0.4 (0.2-1.0) mg/dL AST 24 (15-37) IU/L ALT 26 (14-63) IU/L Alkaline Phosphatase 100 (46-116) U/L Troponin I (0.000-0.056) ng/mL B-Natriuretic Peptide (<100) PG/ML Total Protein 5.4 L (6.4-8.2) g/dL Albumin 1.6 L (3.4-5.0) g/dL Globulin 3.8 (2.6-4.0) g/dL Albumin/Globulin Ratio 0.4 L (0.9-1.6) SARS-CoV-2 RNA (RAYNE) (NEGATIVE) Med Orders - Current: Current Medications Albuterol (Albuterol 0.083% 2.5 Mg/3 Ml Neb Soln) 2.5 mg NEB ONETIME PRN PRN Reason: Wheezing Amlodipine Besylate (Amlodipine 5 Mg Tab) 10 mg PO DAILY [facility] Last Admin: 03/26/21 08:31 Dose: 10 mg Documented by: Dextrose/Water (50% Dextrose In Water 50 Ml Syringe) 50 ml IVPUSH ASDIRECTED PRN PRN Reason: Hypoglycemia Droperidol (Droperidol 5 Mg/2 Ml Sdv) 0.625 mg IVPUSH ONETIME PRN PRN Reason: Nausea/Vomiting Fentanyl (Fentanyl 100 Mcg/2 Ml Sdv) 50 mcg IVPUSH Q5M PRN PRN Reason: Pain (mild 1-3) Glucagon (Glucagon,Human Recombinant 1 Mg Vial) 1 mg IM ASDIRECTED PRN PRN Reason: Hypoglycemia Heparin Sodium (Porcine) (Heparin Sodium 5,000 Units/Ml Vial) 5,000 units SUBCUT Q8H [facility] Last Admin: 03/26/21 08:31 Dose: 5,000 units Documented by: Hydromorphone HCl (Hydromorphone 1 Mg/Ml Syringe) 0.5 mg IVPUSH Q2H PRN PRN Reason: Pain (severe 7-10) Last Admin: 03/26/21 09:35 Dose: 0.5 mg Documented by: Hydromorphone HCl (Hydromorphone 2 Mg/Ml Syringe) 1 mg IVPUSH Q10M PRN PRN Reason: Pain (moderate 4-6) Piperacillin Sod/Tazobactam (Sod 3.375 gm/ Sodium Chloride) 50 mls @ 100 mls/hr IV Q6H [facility] Last Admin: 03/26/21 08:31 Dose: 100 mls/hr Documented by: Insulin Aspart (Insulin Aspart 100 Units/Ml 3 Ml Pen) 0 unit SUBCUT Q6H [facility]; Protocol Last Admin: 03/26/21 05:48 Dose: Not Given Documented by: Insulin Glargine (Insulin Glargine,Human Rec. Analog 100 Units/Ml 3 Ml Pen) 18 units SUBCUT BEDTIME [facility] Metoclopramide HCl (Metoclopramide 10 Mg/2 Ml Sdv) 10 mg IVPUSH ONETIME PRN PRN Reason: Nausea/Vomiting Morphine Sulfate (Morphine 2 Mg/Ml Syringe) 2 mg IVPUSH Q10M PRN PRN Reason: Pain (severe 7-10) Naloxone HCl (Naloxone 0.4 Mg/Ml Syringe) 0.1 mg IVPUSH ASDIRECTED PRN PRN Reason: Respiratory Depression Ondansetron HCl (Ondansetron 4 Mg/2 Ml Sdv) 4 mg IVPUSH Q4H PRN PRN Reason: Nausea Ondansetron HCl (Ondansetron 4 Mg/2 Ml Sdv) 4 mg IVPUSH ONETIME PRN PRN Reason: Nausea/Vomiting Discontinued Medications Fentanyl (Fentanyl 250 Mcg/5 Ml Sdv) Confirm Administered Dose 250 mcg .ROUTE .STK-MED ONE Stop: 03/26/21 11:15 Glycopyrrolate (Glycopyrrolate 0.2 Mg/Ml Sdv) Confirm Administered Dose 0.2 mg .ROUTE .STK-MED ONE Stop: 03/26/21 11:17 Hydromorphone HCl (Hydromorphone 2 Mg/Ml Syringe) 0.5 mg IVPUSH ONETIME ONE Stop: 03/25/21 18:10 Last Admin: 03/25/21 18:34 Dose: 0.5 mg Documented by: Piperacillin Sod/Tazobactam (Sod 4.5 gm/ Sodium Chloride) 100 mls @ 100 mls/hr IV ONETIME ONE Stop: 03/25/21 19:02 Last Admin: 03/25/21 18:35 Dose: 100 mls/hr Documented by: Lactated Ringer's (Ringers, Lactated) 1,000 mls @ 999 mls/hr IV .BOLUS ONE Stop: 03/25/21 19:08 Last Admin: 03/25/21 18:34 Dose: 999 mls/hr Documented by: Indocyanine Green (Indocyanine Green 25 Mg Sdv) Confirm Administered Dose 25 mg .ROUTE .STK-MED ONE Stop: 03/26/21 11:02 Insulin Glargine (Insulin Glargine,Human Rec. Analog 100 Units/Ml 3 Ml Pen) 18 units SUBCUT NOW ONE Stop: 03/25/21 23:31 Last Admin: 03/26/21 00:10 Dose: 18 units Documented by: Ketamine HCl (Ketamine 500 Mg/10 Ml Mdv) Confirm Administered Dose 500 mg .ROUTE .STK-MED ONE Stop: 03/26/21 11:15 Ketorolac Tromethamine (Ketorolac 30 Mg/Ml Sdv) Confirm Administered Dose 30 mg .ROUTE .STK-MED ONE Stop: 03/26/21 11:17 Lidocaine (Lidocaine 2% 5 Ml Sdv) Confirm Administered Dose 5 ml .ROUTE .STK-MED ONE Stop: 03/26/21 11:17 Propofol (Propofol 200 Mg/20 Ml Sdv) Confirm Administered Dose 200 mg .ROUTE .STK-MED ONE Stop: 03/26/21 11:15 Rocuronium Sheridan (Rocuronium Sheridan 50 Mg/5 Ml Syringe) Confirm Administered Dose 50 mg .ROUTE .STK-MED ONE Stop: 03/26/21 11:17 Sugammadex Sodium (Sugammadex Sodium 200 Mg/2 Ml Vial) Confirm Administered Dose 200 mg .ROUTE .[employer]-MED ONE Stop: 03/26/21 11:17 - Exam General: Alert, Oriented, Cooperative Lungs: Normal Respiratory Effort Cardiovascular: Regular Rate GI/Abdominal Exam: Soft, Tender (RUQ) Sepsis Event Note - Evaluation Sepsis Screening Result: No Definite Risk - Focused Exam Vital Signs: Vital Signs Temp Pulse Resp BP BP Pulse Ox 03/26/21 11:31 35.8 C L 89 20 134/64 91 L 03/26/21 08:31 134/66 03/26/21 08:18 36.2 C 101 H 22 H 134/66 92 L 03/26/21 04:00 37.7 C 94 20 146/73 H 93 L 03/26/21 00:22 36.8 C 89 18 137/69 92 L - Problem List & Annotations (1) Acute cholecystitis SNOMED Code(s): 26066576 Code(s): K81.0 - ACUTE CHOLECYSTITIS Status: Acute Current Visit: Yes (2) Diabetes SNOMED Code(s): 62813360 Code(s): E11.9 - TYPE 2 DIABETES MELLITUS WITHOUT COMPLICATIONS Status: Acute Current Visit: Yes - Problem List Review Problem List Initiated/Reviewed/Updated: Yes - My Orders Last 24 Hours: Active Orders 24 hr Category Date Time Status Admission Status [Patient Status] [ADT] Stat ADT 03/25/21 19:39 Active Accu Check [Blood Glucose Check, Bedside] [RC] Q6H Care 03/26/21 03:00 Active Antiembolic Devices [RC] PER UNIT ROUTINE Care 03/25/21 23:27 Active Blood Glucose Check, Bedside [RC] PRN Care 03/26/21 11:16 Active Cardiac Monitoring [RC] . DIRECTED Care 03/25/21 20:08 Active EKG 12 Lead [EKG Documentation Completion] [RC] STAT Care 03/25/21 19:40 Active Notify Provider Vital Signs [RC] ASDIRECTED Care 03/26/21 11:16 Active Overnight Pulse Oximetry [RC] Click to Edit Care 03/26/21 11:16 Active Oxygen Therapy [RC] PRN Care 03/25/21 23:26 Active Oxygen Therapy [RC] PRN Care 03/26/21 11:16 Active Pulse Oximetry [RC] ASDIRECTED Care 03/25/21 18:10 Active RT Aerosol Therapy [RC] ASDIRECTED Care 03/26/21 11:16 Active RT Aerosol Therapy [RC] ASDIRECTED Care 03/26/21 11:16 Active RT BiPAP/CPAP [RC] ASDIRECTED Care 03/26/21 11:16 Active RT Incentive Spirometry [RC] Q1HWA Care 03/25/21 22:54 Active Telemetry Monitoring [Cardiac Monitoring] [RC] . Care 03/25/21 20:08 Active DIRECTED Up ad Karrie [RC] ASDIRECTED Care 03/25/21 23:26 Active VTE/DVT Education [RC] PER UNIT ROUTINE Care 03/25/21 23:26 Active Vital Signs [RC] Q4H Care 03/25/21 23:26 Active Vital Signs [RC] Q5M Care 03/26/21 11:16 Active CULTURE BLOOD [BC] Stat Lab 03/25/21 18:07 Received CULTURE BLOOD [BC] Stat Lab 03/25/21 18:27 Received Albuterol [Proventil Neb Soln] Med 03/26/21 11:16 Active 2.5 mg NEB ONETIME PRN Dextrose 50% in Water Med 03/25/21 23:24 Active 50 ml IVPUSH ASDIRECTED PRN Glucagon,Human Recombinant [GlucaGen] Med 03/25/21 23:24 Active 1 mg IM ASDIRECTED PRN HYDROmorphone [Dilaudid] Med 03/25/21 23:29 Active 0.5 mg IVPUSH Q2H PRN HYDROmorphone [Dilaudid] Med 03/26/21 11:16 Active 1 mg IVPUSH Q10M PRN Heparin Sodium Med 03/26/21 00:00 Active 5,000 units SUBCUT Q8H Insulin Aspart [NovoLOG] Med 03/25/21 23:30 Active See Protocol SUBCUT Q6H Insulin Glarg,Human.Rec.Analog [LantUS Solostar] Med 03/26/21 21:00 Active 18 units SUBCUT BEDTIME Metoclopramide [Reglan] Med 03/26/21 11:16 Active 10 mg IVPUSH ONETIME PRN Morphine Med 03/26/21 11:16 Active 2 mg IVPUSH Q10M PRN Naloxone [Narcan] Med 03/26/21 11:16 Active 0.1 mg IVPUSH ASDIRECTED PRN Ondansetron [Zofran] Med 03/26/21 11:16 Active 4 mg IVPUSH ONETIME PRN Ondansetron [Zofran] Med 03/25/21 23:26 Active 4 mg IVPUSH Q4H PRN Piperacillin/Tazobactam [Piperacil-Tazobact] 3.375 gm Med 03/26/21 02:00 A ctive Sodium Chloride 0.9% [Normal Saline] 50 ml IV Q6H amLODIPine [Norvasc] Med 03/26/21 09:00 Active 10 mg PO DAILY droperidoL [Inapsine] Med 03/26/21 11:16 Active 0.625 mg IVPUSH ONETIME PRN fentaNYL [Sublimaze] Med 03/26/21 11:16 Active 50 mcg IVPUSH Q5M PRN Blood Culture x2 Reflex Set [OM.PC] Stat Oth 03/25/21 18:09 Ordered Pulse Oximetry Continuous Monitoring [OM.PC] Routine Oth 03/26/21 11:16 Ordered Sequential Compression Device [OM.PC] Per Unit Routine Oth 03/25/21 23:26 Ordered Resuscitation Status Routine Resus Stat 03/25/21 23:26 Ordered Medication Orders Albuterol (Albuterol 0.083% 2.5 Mg/3 Ml Neb Soln) 2.5 mg NEB ONETIME PRN PRN Reason: Wheezing Amlodipine Besylate (Amlodipine 5 Mg Tab) 10 mg PO DAILY [facility] Last Admin: 03/26/21 08:31 Dose: 10 mg Documented by: DIEGO Dextrose/Water (50% Dextrose In Water 50 Ml Syringe) 50 ml IVPUSH ASDIRECTED PRN PRN Reason: Hypoglycemia Droperidol (Droperidol 5 Mg/2 Ml Sdv) 0.625 mg IVPUSH ONETIME PRN PRN Reason: Nausea/Vomiting Fentanyl (Fentanyl 100 Mcg/2 Ml Sdv) 50 mcg IVPUSH Q5M PRN PRN Reason: Pain (mild 1-3) Glucagon (Glucagon,Human Recombinant 1 Mg Vial) 1 mg IM ASDIRECTED PRN PRN Reason: Hypoglycemia Heparin Sodium (Porcine) (Heparin Sodium 5,000 Units/Ml Vial) 5,000 units SUBCUT Q8H [facility] Last Admin: 03/26/21 08:31 Dose: 5,000 units Documented by: Admin: 03/26/21 00:11 Dose: 5,000 units Documented by: TERELL Hydromorphone HCl (Hydromorphone 1 Mg/Ml Syringe) 0.5 mg IVPUSH Q2H PRN PRN Reason: Pain (severe 7-10) Last Admin: 03/26/21 09:35 Dose: 0.5 mg Documented by: Admin: 03/26/21 07:17 Dose: 0.5 mg Documented by: Admin: 03/26/21 06:01 Dose: 0.5 mg Documented by: TERELL Hydromorphone HCl (Hydromorphone 2 Mg/Ml Syringe) 1 mg IVPUSH Q10M PRN PRN Reason: Pain (moderate 4-6) Piperacillin Sod/Tazobactam (Sod 3.375 gm/ Sodium Chloride) 50 mls @ 100 mls/hr IV Q6H [facility] Last Admin: 03/26/21 08:31 Dose: 100 mls/hr Documented by: Infusion: 03/26/21 03:25 Dose: 100 mls/hr Documented by: Admin: 03/26/21 02:55 Dose: 100 mls/hr Documented by: TERELL Insulin Aspart (Insulin Aspart 100 Units/Ml 3 Ml Pen) 0 unit SUBCUT Q6H [facility]; Protocol Last Admin: 03/26/21 05:48 Dose: Not Given Documented by: Admin: 03/26/21 00:07 Dose: Not Given Documented by: TERELL Insulin Glargine (Insulin Glargine,Human Rec. Analog 100 Units/Ml 3 Ml Pen) 18 units SUBCUT BEDTIME [facility] Metoclopramide HCl (Metoclopramide 10 Mg/2 Ml Sdv) 10 mg IVPUSH ONETIME PRN PRN Reason: Nausea/Vomiting Morphine Sulfate (Morphine 2 Mg/Ml Syringe) 2 mg IVPUSH Q10M PRN PRN Reason: Pain (severe 7-10) Naloxone HCl (Naloxone 0.4 Mg/Ml Syringe) 0.1 mg IVPUSH ASDIRECTED PRN PRN Reason: Respiratory Depression Ondansetron HCl (Ondansetron 4 Mg/2 Ml Sdv) 4 mg IVPUSH Q4H PRN PRN Reason: Nausea Ondansetron HCl (Ondansetron 4 Mg/2 Ml Sdv) 4 mg IVPUSH ONETIME PRN PRN Reason: Nausea/Vomiting - Plan Plan (Free Text/Narrative):: patient underwent an MRI this morning to rule out any cholelithiasis as a cause of his acute cholecystitis. The MRI showed distended gallbladder with pericholecystic inflammatory changes. The radiologist suggested that we rule out acute cholecystitis. There was no evidence of cholelithiasis or choledocholithiasis. He does have a fatty liver and bilateral trace pleural effusions. He had no evidence of abdominal ascites but there was a small duodenal diverticulum as well. His LFTs this morning are normal. His white count is normal. He remains slightly hyperglycemic and his sodium is 130.I reviewed all of his imaging and discuss his case with my partner Dr. To Bynum. They both agreed that the patient likely should undergo surgery to remove his gallbladder. I will discuss laparoscopic possible open cholecystectomy with the patient and perform the surgery this afternoon. Appreciate medicines assistance in managing the patient's comorbidities.
--- NOTE | 2021-03-26 12:13 | PCM.PN ---
- General Info Date of Service: 03/26/21 - Review of Systems Systems Review Comment:: patient reports abdominal pain has increased, denies any chest pain or shortness oseas brath. - Patient Data Vitals - Most Recent: Last Vital Signs Temp 35.8 C L 03/26/21 11:31 Pulse 89 03/26/21 11:31 Resp 20 03/26/21 11:31 BP 134/64 03/26/21 11:31 Pulse Ox 91 L 03/26/21 11:31 Weight - Most Recent: 107.728 kg I&O - Last 24 Hours: Intake & Output 03/25/21 03/26/21 03/26/21 22:59 06:59 14:59 Intake Total 360 Output Total 775 Balance -415 Lab Results Last 24 Hours: Laboratory Results - last 24 hr 03/25/21 03/25/21 03/25/21 Range/Units 18:07 18:07 18:07 WBC 9.49 (4.0-11.0) K/uL RBC 4.03 L (4.50-5.90) M/uL Hgb 12.3 L (13.0-17.0) g/dL Hct 35.2 L (38.0-50.0) % MCV 87.3 (80.0-98.0) fL MCH 30.5 (27.0-32.0) pg MCHC 34.9 (31.0-37.0) g/dL RDW Std Deviation 46.5 (28.0-62.0) fl RDW Coeff of Mariah 14 (11.0-15.0) % Plt Count 121 L (150-400) K/uL MPV 11.40 (7.40-12.00) fL Neut % (Auto) 89.6 H (48.0-80.0) % Lymph % (Auto) 3.6 L (16.0-40.0) % Gallia % (Auto) 6.6 (0.0-15.0) % Eos % (Auto) 0.1 (0.0-7.0) % Baso % (Auto) 0.1 (0.0-1.5) % Neut # (Auto) 8.5 H (1.4-5.7) K/uL Lymph # (Auto) 0.3 L (0.6-2.4) K/uL Gallia # (Auto) 0.6 (0.0-0.8) K/uL Eos # (Auto) 0.0 (0.0-0.7) K/uL Baso # (Auto) 0.0 (0.0-0.1) K/uL Nucleated RBC % 0.0 /100WBC Nucleated RBCs # 0 K/uL INR 0.91 Sodium (136-148) mmol/L Potassium (3.5-5.1) mmol/L Chloride (98-107) mmol/L Carbon Dioxide (21.0-32.0) mmol/L BUN (7.0-18.0) mg/dL Creatinine (0.8-1.3) mg/dL Est Cr Clr Drug Dosing mL/min Estimated GFR (MDRD) ml/min Glucose (74-106) mg/dL POC Glucose (70-99) mg/dL Lactic Acid (0.4-2.0) mmol/L Calcium (8.5-10.1) mg/dL Magnesium (1.8-2.4) mg/dL Total Bilirubin (0.2-1.0) mg/dL AST (15-37) IU/L ALT (14-63) IU/L Alkaline Phosphatase (46-116) U/L Troponin I (0.000-0.056) ng/mL B-Natriuretic Peptide (<100) PG/ML Total Protein (6.4-8.2) g/dL Albumin (3.4-5.0) g/dL Globulin (2.6-4.0) g/dL Albumin/Globulin Ratio (0.9-1.6) SARS-CoV-2 RNA (RAYNE) NEGATIVE (NEGATIVE) 03/25/21 03/25/21 03/25/21 Range/Units 18:07 18:07 18:07 WBC (4.0-11.0) K/uL RBC (4.50-5.90) M/uL Hgb (13.0-17.0) g/dL Hct (38.0-50.0) % MCV (80.0-98.0) fL MCH (27.0-32.0) pg MCHC (31.0-37.0) g/dL RDW Std Deviation (28.0-62.0) fl RDW Coeff of Mariah (11.0-15.0) % Plt Count (150-400) K/uL MPV (7.40-12.00) fL Neut % (Auto) (48.0-80.0) % Lymph % (Auto) (16.0-40.0) % Gallia % (Auto) (0.0-15.0) % Eos % (Auto) (0.0-7.0) % Baso % (Auto) (0.0-1.5) % Neut # (Auto) (1.4-5.7) K/uL Lymph # (Auto) (0.6-2.4) K/uL Gall[place] # (Auto) (0.0-0.8) K/uL Eos # (Auto) (0.0-0.7) K/uL Baso # (Auto) (0.0-0.1) K/uL Nucleated RBC % /100WBC Nucleated RBCs # K/uL INR Sodium 129 L (136-148) mmol/L Potassium 3.8 (3.5-5.1) mmol/L Chloride 95 L (98-107) mmol/L Carbon Dioxide 26.1 (21.0-32.0) mmol/L BUN 25 H (7.0-18.0) mg/dL Creatinine 1.5 H (0.8-1.3) mg/dL Est Cr Clr Drug Dosing 49.50 mL/min Estimated GFR (MDRD) 46.4 ml/min Glucose 155 H (74-106) mg/dL POC Glucose (70-99) mg/dL Lactic Acid 1.3 (0.4-2.0) mmol/L Calcium 8.1 L (8.5-10.1) mg/dL Magnesium 1.8 (1.8-2.4) mg/dL Total Bilirubin 0.4 (0.2-1.0) mg/dL AST 20 (15-37) IU/L ALT 25 (14-63) IU/L Alkaline Phosphatase 95 (46-116) U/L Troponin I < 0.050 (0.000-0.056) ng/mL B-Natriuretic Peptide (<100) PG/ML Total Protein 6.0 L (6.4-8.2) g/dL Albumin 1.9 L (3.4-5.0) g/dL Globulin 4.1 H (2.6-4.0) g/dL Albumin/Globulin Ratio 0.5 L (0.9-1.6) SARS-CoV-2 RNA (RAYNE) (NEGATIVE) 03/25/21 03/25/21 03/26/21 Range/Units 18:07 21:28 00:14 WBC (4.0-11.0) K/uL RBC (4.50-5.90) M/uL Hgb (13.0-17.0) g/dL Hct (38.0-50.0) % MCV (80.0-98.0) fL MCH (27.0-32.0) pg MCHC (31.0-37.0) g/dL RDW Std Deviation (28.0-62.0) fl RDW Coeff of Mariah (11.0-15.0) % Plt Count (150-400) K/uL MPV (7.40-12.00) fL Neut % (Auto) (48.0-80.0) % Lymph % (Auto) (16.0-40.0) % [place] % (Auto) (0.0-15.0) % Eos % (Auto) (0.0-7.0) % Baso % (Auto) (0.0-1.5) % Neut # (Auto) (1.4-5.7) K/uL Lymph # (Auto) (0.6-2.4) K/uL [place] # (Auto) (0.0-0.8) K/uL Eos # (Auto) (0.0-0.7) K/uL Baso # (Auto) (0.0-0.1) K/uL Nucleated RBC % /100WBC Nucleated RBCs # K/uL INR Sodium (136-148) mmol/L Potassium (3.5-5.1) mmol/L Chloride (98-107) mmol/L Carbon Dioxide (21.0-32.0) mmol/L BUN (7.0-18.0) mg/dL Creatinine (0.8-1.3) mg/dL Est Cr Clr Drug Dosing mL/min Estimated GFR (MDRD) ml/min Glucose (74-106) mg/dL POC Glucose 182 H 220 H (70-99) mg/dL Lactic Acid (0.4-2.0) mmol/L Calcium (8.5-10.1) mg/dL Magnesium (1.8-2.4) mg/dL Total Bilirubin (0.2-1.0) mg/dL AST (15-37) IU/L ALT (14-63) IU/L Alkaline Phosphatase (46-116) U/L Troponin I (0.000-0.056) ng/mL B-Natriuretic Peptide 181 H (<100) PG/ML Total Protein (6.4-8.2) g/dL Albumin (3.4-5.0) g/dL Globulin (2.6-4.0) g/dL Albumin/Globulin Ratio (0.9-1.6) SARS-CoV-2 RNA (RAYNE) (NEGATIVE) 03/26/21 03/26/21 03/26/21 Range/Units 05:46 05:48 05:48 WBC 8.22 (4.0-11.0) K/uL RBC 3.80 L (4.50-5.90) M/uL Hgb 11.5 L (13.0-17.0) g/dL Hct 33.0 L (38.0-50.0) % MCV 86.8 (80.0-98.0) fL MCH 30.3 (27.0-32.0) pg MCHC 34.8 (31.0-37.0) g/dL RDW Std Deviation 45.7 (28.0-62.0) fl RDW Coeff of Mariah 14 (11.0-15.0) % Plt Count 113 L (150-400) K/uL MPV 11.70 (7.40-12.00) fL Neut % (Auto) 86.4 H (48.0-80.0) % Lymph % (Auto) 3.8 L (16.0-40.0) % [place] % (Auto) 9.6 (0.0-15.0) % Eos % (Auto) 0.2 (0.0-7.0) % Baso % (Auto) 0.0 (0.0-1.5) % Neut # (Auto) 7.1 H (1.4-5.7) K/uL Lymph # (Auto) 0.3 L (0.6-2.4) K/uL [place] # (Auto) 0.8 (0.0-0.8) K/uL Eos # (Auto) 0.0 (0.0-0.7) K/uL Baso # (Auto) 0.0 (0.0-0.1) K/uL Nucleated RBC % 0.0 /100WBC Nucleated RBCs # 0 K/uL INR Sodium 130 L (136-148) mmol/L Potassium 3.9 (3.5-5.1) mmol/L Chloride 97 L (98-107) mmol/L Carbon Dioxide 24.1 (21.0-32.0) mmol/L BUN 22 H (7.0-18.0) mg/dL Creatinine 1.5 H (0.8-1.3) mg/dL Est Cr Clr Drug Dosing 49.50 mL/min Estimated GFR (MDRD) 46.4 ml/min Glucose 183 H (74-106) mg/dL POC Glucose 192 H (70-99) mg/dL Lactic Acid (0.4-2.0) mmol/L Calcium 7.7 L (8.5-10.1) mg/dL Magnesium (1.8-2.4) mg/dL Total Bilirubin 0.4 (0.2-1.0) mg/dL AST 24 (15-37) IU/L ALT 26 (14-63) IU/L Alkaline Phosphatase 100 (46-116) U/L Troponin I (0.000-0.056) ng/mL B-Natriuretic Peptide (<100) PG/ML Total Protein 5.4 L (6.4-8.2) g/dL Albumin 1.6 L (3.4-5.0) g/dL Globulin 3.8 (2.6-4.0) g/dL Albumin/Globulin Ratio 0.4 L (0.9-1.6) SARS-CoV-2 RNA (RAYNE) (NEGATIVE) 03/26/21 Range/Units 11:51 WBC (4.0-11.0) K/uL RBC (4.50-5.90) M/uL Hgb (13.0-17.0) g/dL Hct (38.0-50.0) % MCV (80.0-98.0) fL MCH (27.0-32.0) pg MCHC (31.0-37.0) g/dL RDW Std Deviation (28.0-62.0) fl RDW Coeff of Mariah (11.0-15.0) % Plt Count (150-400) K/uL MPV (7.40-12.00) fL Neut % (Auto) (48.0-80.0) % Lymph % (Auto) (16.0-40.0) % [place] % (Auto) (0.0-15.0) % Eos % (Auto) (0.0-7.0) % Baso % (Auto) (0.0-1.5) % Neut # (Auto) (1.4-5.7) K/uL Lymph # (Auto) (0.6-2.4) K/uL [place] # (Auto) (0.0-0.8) K/uL Eos # (Auto) (0.0-0.7) K/uL Baso # (Auto) (0.0-0.1) K/uL Nucleated RBC % /100WBC Nucleated RBCs # K/uL INR Sodium (136-148) mmol/L Potassium (3.5-5.1) mmol/L Chloride (98-107) mmol/L Carbon Dioxide (21.0-32.0) mmol/L BUN (7.0-18.0) mg/dL Creatinine (0.8-1.3) mg/dL Est Cr Clr Drug Dosing mL/min Estimated GFR (MDRD) ml/min Glucose (74-106) mg/dL POC Glucose 202 H (70-99) mg/dL Lactic Acid (0.4-2.0) mmol/L Calcium (8.5-10.1) mg/dL Magnesium (1.8-2.4) mg/dL Total Bilirubin (0.2-1.0) mg/dL AST (15-37) IU/L ALT (14-63) IU/L Alkaline Phosphatase (46-116) U/L Troponin I (0.000-0.056) ng/mL B-Natriuretic Peptide (<100) PG/ML Total Protein (6.4-8.2) g/dL Albumin (3.4-5.0) g/dL Globulin (2.6-4.0) g/dL Albumin/Globulin Ratio (0.9-1.6) SARS-CoV-2 RNA (RAYNE) (NEGATIVE) Med Orders - Current: Current Medications Albuterol (Albuterol 0.083% 2.5 Mg/3 Ml Neb Soln) 2.5 mg NEB ONETIME PRN PRN Reason: Wheezing Amlodipine Besylate (Amlodipine 5 Mg Tab) 10 mg PO DAILY [facility] Last Admin: 03/26/21 08:31 Dose: 10 mg Documented by: Dextrose/Water (50% Dextrose In Water 50 Ml Syringe) 50 ml IVPUSH ASDIRECTED PRN PRN Reason: Hypoglycemia Droperidol (Droperidol 5 Mg/2 Ml Sdv) 0.625 mg IVPUSH ONETIME PRN PRN Reason: Nausea/Vomiting Fentanyl (Fentanyl 100 Mcg/2 Ml Sdv) 50 mcg IVPUSH Q5M PRN PRN Reason: Pain (mild 1-3) Glucagon (Glucagon,Human Recombinant 1 Mg Vial) 1 mg IM ASDIRECTED PRN PRN Reason: Hypoglycemia Heparin Sodium (Porcine) (Heparin Sodium 5,000 Units/Ml Vial) 5,000 units SUBCUT Q8H [facility] Last Admin: 03/26/21 08:31 Dose: 5,000 units Documented by: Hydromorphone HCl (Hydromorphone 1 Mg/Ml Syringe) 0.5 mg IVPUSH Q2H PRN PRN Reason: Pain (severe 7-10) Last Admin: 03/26/21 09:35 Dose: 0.5 mg Documented by: Hydromorphone HCl (Hydromorphone 2 Mg/Ml Syringe) 1 mg IVPUSH Q10M PRN PRN Reason: Pain (moderate 4-6) Piperacillin Sod/Tazobactam (Sod 3.375 gm/ Sodium Chloride) 50 mls @ 100 mls/hr IV Q6H [facility] Last Admin: 03/26/21 08:31 Dose: 100 mls/hr Documented by: Insulin Aspart (Insulin Aspart 100 Units/Ml 3 Ml Pen) 0 unit SUBCUT Q6H [facility]; Protocol Last Admin: 03/26/21 05:48 Dose: Not Given Documented by: Insulin Glargine (Insulin Glargine,Human Rec. Analog 100 Units/Ml 3 Ml Pen) 18 units SUBCUT BEDTIME EMMY Metoclopramide HCl (Metoclopramide 10 Mg/2 Ml Sdv) 10 mg IVPUSH ONETIME PRN PRN Reason: Nausea/Vomiting Morphine Sulfate (Morphine 2 Mg/Ml Syringe) 2 mg IVPUSH Q10M PRN PRN Reason: Pain (severe 7-10) Naloxone HCl (Naloxone 0.4 Mg/Ml Syringe) 0.1 mg IVPUSH ASDIRECTED PRN PRN Reason: Respiratory Depression Ondansetron HCl (Ondansetron 4 Mg/2 Ml Sdv) 4 mg IVPUSH Q4H PRN PRN Reason: Nausea Ondansetron HCl (Ondansetron 4 Mg/2 Ml Sdv) 4 mg IVPUSH ONETIME PRN PRN Reason: Nausea/Vomiting Discontinued Medications Fentanyl (Fentanyl 250 Mcg/5 Ml Sdv) Confirm Administered Dose 250 mcg .ROUTE .STK-MED ONE Stop: 03/26/21 11:15 Glycopyrrolate (Glycopyrrolate 0.2 Mg/Ml Sdv) Confirm Administered Dose 0.2 mg .ROUTE .STK-MED ONE Stop: 03/26/21 11:17 Hydromorphone HCl (Hydromorphone 2 Mg/Ml Syringe) 0.5 mg IVPUSH ONETIME ONE Stop: 03/25/21 18:10 Last Admin: 03/25/21 18:34 Dose: 0.5 mg Documented by: Piperacillin Sod/Tazobactam (Sod 4.5 gm/ Sodium Chloride) 100 mls @ 100 mls/hr IV ONETIME ONE Stop: 03/25/21 19:02 Last Admin: 03/25/21 18:35 Dose: 100 mls/hr Documented by: Lactated Ringer's (Ringers, Lactated) 1,000 mls @ 999 mls/hr IV .BOLUS ONE Stop: 03/25/21 19:08 Last Admin: 03/25/21 18:34 Dose: 999 mls/hr Documented by: Indocyanine Green (Indocyanine Green 25 Mg Sdv) Confirm Administered Dose 25 mg .ROUTE .STK-MED ONE Stop: 03/26/21 11:02 Insulin Glargine (Insulin Glargine,Human Rec. Analog 100 Units/Ml 3 Ml Pen) 18 units SUBCUT NOW ONE Stop: 03/25/21 23:31 Last Admin: 03/26/21 00:10 Dose: 18 units Documented by: Ketamine HCl (Ketamine 500 Mg/10 Ml Mdv) Confirm Administered Dose 500 mg .ROUTE .STK-MED ONE Stop: 03/26/21 11:15 Ketorolac Tromethamine (Ketorolac 30 Mg/Ml Sdv) Confirm Administered Dose 30 mg .ROUTE .STK-MED ONE Stop: 03/26/21 11:17 Lidocaine (Lidocaine 2% 5 Ml Sdv) Confirm Administered Dose 5 ml .ROUTE .STK-MED ONE Stop: 03/26/21 11:17 Propofol (Propofol 200 Mg/20 Ml Sdv) Confirm Administered Dose 200 mg .ROUTE .STK-MED ONE Stop: 03/26/21 11:15 Rocuronium Abie (Rocuronium Abie 50 Mg/5 Ml Syringe) Confirm Administered Dose 50 mg .ROUTE .ST-MED ONE Stop: 03/26/21 11:17 Sugammadex Sodium (Sugammadex Sodium 200 Mg/2 Ml Vial) Confirm Administered Dose [address]-MED ONE Stop: 03/26/21 11:17 - Exam General: Alert, Oriented Neck: Supple Lungs: Clear to Auscultation, Normal Respiratory Effort Cardiovascular: Regular Rate, Regular Rhythm GI/Abdominal Exam: Soft, No Distention Extremities: Pedal Edema (mild pedal edema) Skin: Warm, Dry, Intact Neurological: No New Focal Deficit - Patient Data Lab Results Last 24 hrs: Laboratory Results - last 24 hr 03/25/21 03/25/21 03/25/21 Range/Units 18:07 18:07 18:07 WBC 9.49 (4.0-11.0) K/uL RBC 4.03 L (4.50-5.90) M/uL Hgb 12.3 L (13.0-17.0) g/dL Hct 35.2 L (38.0-50.0) % MCV 87.3 (80.0-98.0) fL MCH 30.5 (27.0-32.0) pg MCHC 34.9 (31.0-37.0) g/dL RDW Std Deviation 46.5 (28.0-62.0) fl RDW Coeff of Mariah 14 (11.0-15.0) % Plt Count 121 L (150-400) K/uL MPV 11.40 (7.40-12.00) fL Neut % (Auto) 89.6 H (48.0-80.0) % Lymph % (Auto) 3.6 L (16.0-40.0) % [place] % (Auto) 6.6 (0.0-15.0) % Eos % (Auto) 0.1 (0.0-7.0) % Baso % (Auto) 0.1 (0.0-1.5) % Neut # (Auto) 8.5 H (1.4-5.7) K/uL Lymph # (Auto) 0.3 L (0.6-2.4) K/uL [place] # (Auto) 0.6 (0.0-0.8) K/uL Eos # (Auto) 0.0 (0.0-0.7) K/uL Baso # (Auto) 0.0 (0.0-0.1) K/uL Nucleated RBC % 0.0 /100WBC Nucleated RBCs # 0 K/uL INR 0.91 Sodium (136-148) mmol/L Potassium (3.5-5.1) mmol/L Chloride (98-107) mmol/L Carbon Dioxide (21.0-32.0) mmol/L BUN (7.0-18.0) mg/dL Creatinine (0.8-1.3) mg/dL Est Cr Clr Drug Dosing mL/min Estimated GFR (MDRD) ml/min Glucose (74-106) mg/dL POC Glucose (70-99) mg/dL Lactic Acid (0.4-2.0) mmol/L Calcium (8.5-10.1) mg/dL Magnesium (1.8-2.4) mg/dL Total Bilirubin (0.2-1.0) mg/dL AST (15-37) IU/L ALT (14-63) IU/L Alkaline Phosphatase (46-116) U/L Troponin I (0.000-0.056) ng/mL B-Natriuretic Peptide (<100) PG/ML Total Protein (6.4-8.2) g/dL Albumin (3.4-5.0) g/dL Globulin (2.6-4.0) g/dL Albumin/Globulin Ratio (0.9-1.6) SARS-CoV-2 RNA (RAYNE) NEGATIVE (NEGATIVE) 03/25/21 03/25/21 03/25/21 Range/Units 18:07 18:07 18:07 WBC (4.0-11.0) K/uL RBC (4.50-5.90) M/uL Hgb (13.0-17.0) g/dL Hct (38.0-50.0) % MCV (80.0-98.0) fL MCH (27.0-32.0) pg MCHC (31.0-37.0) g/dL RDW Std Deviation (28.0-62.0) fl RDW Coeff of Mariah (11.0-15.0) % Plt Count (150-400) K/uL MPV (7.40-12.00) fL Neut % (Auto) (48.0-80.0) % Lymph % (Auto) (16.0-40.0) % [place] % (Auto) (0.0-15.0) % Eos % (Auto) (0.0-7.0) % Baso % (Auto) (0.0-1.5) % Neut # (Auto) (1.4-5.7) K/uL Lymph # (Auto) (0.6-2.4) K/uL [place] # (Auto) (0.0-0.8) K/uL Eos # (Auto) (0.0-0.7) K/uL Baso # (Auto) (0.0-0.1) K/uL Nucleated RBC % /100WBC Nucleated RBCs # K/uL INR Sodium 129 L (136-148) mmol/L Potassium 3.8 (3.5-5.1) mmol/L Chloride 95 L (98-107) mmol/L Carbon Dioxide 26.1 (21.0-32.0) mmol/L BUN 25 H (7.0-18.0) mg/dL Creatinine 1.5 H (0.8-1.3) mg/dL Est Cr Clr Drug Dosing 49.50 mL/min Estimated GFR (MDRD) 46.4 ml/min Glucose 155 H (74-106) mg/dL POC Glucose (70-99) mg/dL Lactic Acid 1.3 (0.4-2.0) mmol/L Calcium 8.1 L (8.5-10.1) mg/dL Magnesium 1.8 (1.8-2.4) mg/dL Total Bilirubin 0.4 (0.2-1.0) mg/dL AST 20 (15-37) IU/L ALT 25 (14-63) IU/L Alkaline Phosphatase 95 (46-116) U/L Troponin I < 0.050 (0.000-0.056) ng/mL B-Natriuretic Peptide (<100) PG/ML Total Protein 6.0 L (6.4-8.2) g/dL Albumin 1.9 L (3.4-5.0) g/dL Globulin 4.1 H (2.6-4.0) g/dL Albumin/Globulin Ratio 0.5 L (0.9-1.6) SARS-CoV-2 RNA (RAYNE) (NEGATIVE) 03/25/21 03/25/21 03/26/21 Range/Units 18:07 21:28 00:14 WBC (4.0-11.0) K/uL RBC (4.50-5.90) M/uL Hgb (13.0-17.0) g/dL Hct (38.0-50.0) % MCV (80.0-98.0) fL MCH (27.0-32.0) pg MCHC (31.0-37.0) g/dL RDW Std Deviation (28.0-62.0) fl RDW Coeff of Mariah (11.0-15.0) % Plt Count (150-400) K/uL MPV (7.40-12.00) fL Neut % (Auto) (48.0-80.0) % Lymph % (Auto) (16.0-40.0) % [place] % (Auto) (0.0-15.0) % Eos % (Auto) (0.0-7.0) % Baso % (Auto) (0.0-1.5) % Neut # (Auto) (1.4-5.7) K/uL Lymph # (Auto) (0.6-2.4) K/uL [place] # (Auto) (0.0-0.8) K/uL Eos # (Auto) (0.0-0.7) K/uL Baso # (Auto) (0.0-0.1) K/uL Nucleated RBC % /100WBC Nucleated RBCs # K/uL INR Sodium (136-148) mmol/L Potassium (3.5-5.1) mmol/L Chloride (98-107) mmol/L Carbon Dioxide (21.0-32.0) mmol/L BUN (7.0-18.0) mg/dL Creatinine (0.8-1.3) mg/dL Est Cr Clr Drug Dosing mL/min Estimated GFR (MDRD) ml/min Glucose (74-106) mg/dL POC Glucose 182 H 220 H (70-99) mg/dL Lactic Acid (0.4-2.0) mmol/L Calcium (8.5-10.1) mg/dL Magnesium (1.8-2.4) mg/dL Total Bilirubin (0.2-1.0) mg/dL AST (15-37) IU/L ALT (14-63) IU/L Alkaline Phosphatase (46-116) U/L Troponin I (0.000-0.056) ng/mL B-Natriuretic Peptide 181 H (<100) PG/ML Total Protein (6.4-8.2) g/dL Albumin (3.4-5.0) g/dL Globulin (2.6-4.0) g/dL Albumin/Globulin Ratio (0.9-1.6) SARS-CoV-2 RNA (RAYNE) (NEGATIVE) 03/26/21 03/26/21 03/26/21 Range/Units 05:46 05:48 05:48 WBC 8.22 (4.0-11.0) K/uL RBC 3.80 L (4.50-5.90) M/uL Hgb 11.5 L (13.0-17.0) g/dL Hct 33.0 L (38.0-50.0) % MCV 86.8 (80.0-98.0) fL MCH 30.3 (27.0-32.0) pg MCHC 34.8 (31.0-37.0) g/dL RDW Std Deviation 45.7 (28.0-62.0) fl RDW Coeff of Mariah 14 (11.0-15.0) % Plt Count 113 L (150-400) K/uL MPV 11.70 (7.40-12.00) fL Neut % (Auto) 86.4 H (48.0-80.0) % Lymph % (Auto) 3.8 L (16.0-40.0) % [place] % (Auto) 9.6 (0.0-15.0) % Eos % (Auto) 0.2 (0.0-7.0) % Baso % (Auto) 0.0 (0.0-1.5) % Neut # (Auto) 7.1 H (1.4-5.7) K/uL Lymph # (Auto) 0.3 L (0.6-2.4) K/uL [place] # (Auto) 0.8 (0.0-0.8) K/uL Eos # (Auto) 0.0 (0.0-0.7) K/uL Baso # (Auto) 0.0 (0.0-0.1) K/uL Nucleated RBC % 0.0 /100WBC Nucleated RBCs # 0 K/uL INR Sodium 130 L (136-148) mmol/L Potassium 3.9 (3.5-5.1) mmol/L Chloride 97 L (98-107) mmol/L Carbon Dioxide 24.1 (21.0-32.0) mmol/L BUN 22 H (7.0-18.0) mg/dL Creatinine 1.5 H (0.8-1.3) mg/dL Est Cr Clr Drug Dosing 49.50 mL/min Estimated GFR (MDRD) 46.4 ml/min Glucose 183 H (74-106) mg/dL POC Glucose 192 H (70-99) mg/dL Lactic Acid (0.4-2.0) mmol/L Calcium 7.7 L (8.5-10.1) mg/dL Magnesium (1.8-2.4) mg/dL Total Bilirubin 0.4 (0.2-1.0) mg/dL AST 24 (15-37) IU/L ALT 26 (14-63) IU/L Alkaline Phosphatase 100 (46-116) U/L Troponin I (0.000-0.056) ng/mL B-Natriuretic Peptide (<100) PG/ML Total Protein 5.4 L (6.4-8.2) g/dL Albumin 1.6 L (3.4-5.0) g/dL Globulin 3.8 (2.6-4.0) g/dL Albumin/Globulin Ratio 0.4 L (0.9-1.6) SARS-CoV-2 RNA (RAYNE) (NEGATIVE) 03/26/21 Range/Units 11:51 WBC (4.0-11.0) K/uL RBC (4.50-5.90) M/uL Hgb (13.0-17.0) g/dL Hct (38.0-50.0) % MCV (80.0-98.0) fL MCH (27.0-32.0) pg MCHC (31.0-37.0) g/dL RDW Std Deviation (28.0-62.0) fl RDW Coeff of Mariah (11.0-15.0) % Plt Count (150-400) K/uL MPV (7.40-12.00) fL Neut % (Auto) (48.0-80.0) % Lymph % (Auto) (16.0-40.0) % Gallia % (Auto) (0.0-15.0) % Eos % (Auto) (0.0-7.0) % Baso % (Auto) (0.0-1.5) % Neut # (Auto) (1.4-5.7) K/uL Lymph # (Auto) (0.6-2.4) K/uL Gallia # (Auto) (0.0-0.8) K/uL Eos # (Auto) (0.0-0.7) K/uL Baso # (Auto) (0.0-0.1) K/uL Nucleated RBC % /100WBC Nucleated RBCs # K/uL INR Sodium (136-148) mmol/L Potassium (3.5-5.1) mmol/L Chloride (98-107) mmol/L Carbon Dioxide (21.0-32.0) mmol/L BUN (7.0-18.0) mg/dL Creatinine (0.8-1.3) mg/dL Est Cr Clr Drug Dosing mL/min Estimated GFR (MDRD) ml/min Glucose (74-106) mg/dL POC Glucose 202 H (70-99) mg/dL Lactic Acid (0.4-2.0) mmol/L Calcium (8.5-10.1) mg/dL Magnesium (1.8-2.4) mg/dL Total Bilirubin (0.2-1.0) mg/dL AST (15-37) IU/L ALT (14-63) IU/L Alkaline Phosphatase (46-116) U/L Troponin I (0.000-0.056) ng/mL B-Natriuretic Peptide (<100) PG/ML Total Protein (6.4-8.2) g/dL Albumin (3.4-5.0) g/dL Globulin (2.6-4.0) g/dL Albumin/Globulin Ratio (0.9-1.6) SARS-CoV-2 RNA (RAYNE) (NEGATIVE) Result Diagrams: 03/26/21 05:48 03/26/21 05:48 Sepsis Event Note - Evaluation Sepsis Screening Result: No Definite Risk - Focused Exam Vital Signs: Vital Signs Temp Pulse Resp BP BP Pulse Ox 03/26/21 11:31 35.8 C L 89 20 134/64 91 L 03/26/21 08:31 134/66 03/26/21 08:18 36.2 C 101 H 22 H 134/66 92 L 03/26/21 04:00 37.7 C 94 20 146/73 H 93 L 03/26/21 00:22 36.8 C 89 18 137/69 92 L - Problem List Review Problem List Initiated/Reviewed/Updated: Yes - My Orders Last 24 Hours: My Active Orders 03/25/21 20:08 Telemetry Monitoring [Cardiac Monitoring] [RC] . DIRECTED 03/25/21 22:54 RT Incentive Spirometry [RC] Q1HWA 03/25/21 23:24 Dextrose 50% in Water 50 ml IVPUSH ASDIRECTED PRN Glucagon,Human Recombinant [GlucaGen] 1 mg IM ASDIRECTED PRN 03/25/21 23:26 Oxygen Therapy [RC] PRN Up ad Karrie [RC] ASDIRECTED VTE/DVT Education [RC] PER UNIT ROUTINE Vital Signs [RC] Q4H Ondansetron [Zofran] 4 mg IVPUSH Q4H PRN Sequential Compression Device [OM.PC] Per Unit Routine Resuscitation Status Routine 03/25/21 23:27 Antiembolic Devices [RC] PER UNIT ROUTINE 03/25/21 23:29 HYDROmorphone [Dilaudid] 0.5 mg IVPUSH Q2H PRN 03/25/21 23:30 Insulin Aspart [NovoLOG] See Protocol SUBCUT Q6H 03/26/21 00:00 Heparin Sodium 5,000 units SUBCUT Q8H 03/26/21 02:00 Piperacillin/Tazobactam [Piperacil-Tazobact] 3.375 gm Sodium Chloride 0.9% [Normal Saline] 50 ml IV Q6H 03/26/21 03:00 Accu Check [Blood Glucose Check, Bedside] [RC] Q6H 03/26/21 09:00 amLODIPine [Norvasc] 10 mg PO DAILY 03/26/21 21:00 Insulin Glarg,Human.Rec.Analog [LantUS Solostar] 18 units SUBCUT BEDTIME 03/27/21 05:11 CBC WITH AUTO DIFF [HEME] AM COMPREHENSIVE METABOLIC PN,CMP [CHEM] AM - Plan Plan:: 71 yo male admitted for acute cholecystitis Acute cholecystitis: Dr. Schwartz has been consulted, Treating with Zosyn, dilaudid for pain, zofran for nausea, plan to take to OR this afternoon Hypoxia: likely 2/2 atelectasis, will encourage incentive spirometry CKD from diabetic nephropathy: Creatinine 1.5 which appears to be his baseline, patient appears to be euvolemic, will hold on additional fluids or diuretics. Hypertension: will continue amlodipine, hold ramipril for now due to surgery DM: received 18 units of lantus last night, continue ssi, DVT ppx: heparin.
--- NOTE | 2021-03-26 13:01 | PCM.SN.2 ---
- Free Text/Narrative Note: The patient and I discussed the pathophysiology of biliary disease. I explained the need for a cholecystectomy. I explained that I will perform this laparoscopically but convert to open should I be unable to perform it safely. We discussed the expected chris-operative course and the risks including bleeding infection or damage to surrounding structures. He verbalized understanding and wishes to proceed.
[2021-03-26] MEDS ORDERED: Bupivacaine 0.5% 30 ML SDV ONE (13:03)
[2021-03-26] MEDS ORDERED: Octyl 2-Cyanoacrylate 1 Tube ONE (14:24)
[2021-03-26] MEDS ORDERED: HYDROmorphone 2 MG/ML Syringe ONE (16:04)
--- NOTE | 2021-03-26 16:52 | PCM.OPNOTE ---
- General Post-Op/Procedure Note Date of Surgery/Procedure: 03/26/21 Operative Procedure(s): Laparoscopic cholecystectomy Findings: Necrotic possibly perforated cholecystitis. Large amount of fibrinous exudate in RUQ and LUQ. Partial cholecystectomy. Back wall left in place. Proximal cuff oversewn. 19 Fr kim drain. Pre Op Diagnosis: Acute cholecystitis Post-Op Diagnosis: Gangrenous cholecystitis Anesthesia Technique: General ET Tube Primary Surgeon: Andressa Schwartz Secondary Surgeon: To Bynum Pathology: gallbladder Output, Urine Amount: 80 EBL in mLs: 60 Surgical Drain/Tube Type: Kim Drain Condition: Good Free Text/Narrative:: Intake & Output 03/26/21 03/26/21 03/26/21 06:59 14:59 22:59 Intake Total 360 0 Output Total 775 770 Hyzgzdo -[id number] [id number]
[2021-03-26] MEDS ORDERED: Piperacillin/Tazobactam 3.375 GM in Sodium Chloride 0.9% 50 ML IV SCH (17:00)
--- NOTE | 2021-03-26 17:01 | PCM.POSTAN ---
POST ANESTHESIA ASSESSMENT - MENTAL STATUS Mental Status: Alert, Oriented - VITAL SIGNS Vital Signs: Last Vital Signs Temp 35.8 C L 03/26/21 11:31 Pulse 89 03/26/21 11:31 Resp 20 03/26/21 11:31 BP 134/64 03/26/21 11:31 Pulse Ox 91 L 03/26/21 11:31 - RESPIRATORY Respiratory Status: Respiratory Rate WNL, Airway Patent, O2 Saturation Stable, Supplemental Oxygen - CARDIOVASCULAR CV Status: Pulse Rate WNL, Blood Pressure Stable - GASTROINTESTINAL GI Status: No Symptoms - POST OP HYDRATION Hydration Status: Adequate & Stable
--- NOTE | 2021-03-26 17:26 | PCM48HPAN ---
Post Anesthesia Note - EVALUATION WITHIN 48HRS OF ANESTHETIC Patient Participated in Evaluation: Yes Respiratory Function Stable: Yes Airway Patent: Yes Cardiovascular Function Stable: Yes Hydration Status Stable: Yes Pain Control Satisfactory: Yes Nausea and Vomiting Control Satisfactory: Yes Mental Status Recovered: Yes ( ) Vital Signs: Last Vital Signs Temp 35.8 C L 03/26/21 11:31 Pulse 89 03/26/21 11:31 Resp 20 03/26/21 11:31 BP 134/64 03/26/21 11:31 Pulse Ox 91 L 03/26/21 11:31
--- NOTE | 2021-03-26 18:01 | OR ---
SURGEON: ANDRESSA WALTER MD DATE OF PROCEDURE: 03/26/2021 PREOPERATIVE DIAGNOSIS: Acute cholecystitis. POSTOPERATIVE DIAGNOSIS: Gangrenous cholecystitis. PROCEDURE PERFORMED: Laparoscopic cholecystectomy. PRIMARY SURGEON: Andressa Walter MD SECONDARY SURGEON: To Bynum MD ANESTHESIA: General endotracheal anesthesia. FLUIDS: 900 mL of crystalloid. ESTIMATED BLOOD LOSS: 60 mL. URINE OUTPUT: 80 mL. FINDINGS: Necrotic and possibly perforated gallbladder. Large amount of fibrinous exudate in right upper quadrant and left upper quadrant associated with cloudy fluid. Partial cholecystectomy with back wall left in place. Proximal cuff of gallbladder oversewn. A 19-Citizen [place] Bogdan drain. COMPLICATIONS: None. INDICATIONS: The patient is a 71-year-old male with a history of diabetes who presented to the ER last night with acute cholecystitis. He has been having symptoms since Monday. He went to the emergency room on Monday. At that time, his workup was negative and it was felt that he had gastroenteritis. His symptoms persisted, so he presented to an outside primary care provider's office. Workup showed a normal white count with a left shift. CT scan of the abdomen and pelvis showed a distended gallbladder with surrounding inflammatory change suggestive of acute cholecystitis. He underwent a right upper quadrant ultrasound that again showed a distended gallbladder with no signs of cholelithiasis. A radiologist felt this could be acute cholecystitis. He was admitted to the hospital overnight. This morning, he underwent an MRI of the abdomen. This showed a distended and inflamed gallbladder suggesting acute cholecystitis. His white count stayed normal, but he still had a left shift. The decision was made to proceed to the operating room to perform a laparoscopic, possible open cholecystectomy for acute cholecystitis. I explained the procedure to the patient, the expected perioperative course, and the risks. He verbalized understanding and wishes to proceed. PROCEDURE IN DETAIL: The patient was brought in to the OR, placed on the OR table in supine position. A time-out was completed verifying the patient's name, age, date of , allergies, and procedure to be performed. General endotracheal anesthesia was induced. The patient's left arm was tucked to the side and a Maldonado catheter placed. The abdomen was prepped and draped in usual standard fashion. I anesthetized the area above the umbilicus with 0.5% Marcaine plain. An 11-blade was used to make an incision in this area. I then bluntly dissected down to the fascia. The fascia was elevated with Kochers and incised sharply. A 12 mm Oren trocar was inserted into the abdomen and it was insufflated. I inspected the area underneath my initial trocar placement with a 5 mm 30-degree scope. No damage to surrounding structures was noted. The patient was placed into reverse Trendelenburg position and airplaned slightly to the left. 5 mm trocars were placed in the following locations under direct visualization; one in the epigastric area, one in the right flank, and one 2 fingerbreadths below the right subcostal margin in the midclavicular line. On first inspection, the patient had cloudy fluid and adhesions in the right upper quadrant as well as in the left upper quadrant. The cloudy fluid was suctioned out and these adhesions were gently brushed away using suction. The top of the gallbladder appeared partially necrotic and was encased in inflammatory rind. An aspiration needle was brought through the right flank port and used to bonilla the dome of the gallbladder. 150 mL of green-appearing cloudy bile was obtained. Some of this was sent to Pathology for anaerobic and aerobic cultures. The dome of the gallbladder was then grasped with an atraumatic grasper and elevated. Using suction, we gently swept away all the surrounding inflammatory exudate and adhesions, come down upon the proximal gallbladder. Using a Kittner and an endoscopic suction device, we cleared away tissue from around the proximal gallbladder. Indocyanine green had been given to the patient. Using laparoscopic imaging, we used this to try and guide our resection. The patient appeared to have either a very short cystic duct that inserted on the area we were dissecting, however, we could not be certain of our anatomy. Inflammatory rind was too thick, so the decision was made to perform a laparoscopic partial cholecystectomy and to leave a small cuff of the proximal gallbladder. At this point, Dr. Bynum took over the case with my assistance. He used a Harmonic scalpel device to open up the gallbladder near the dome. He then carried the opening both medial and laterally and carried this down approximately to about 1 cm above the area of the proximal gallbladder. The anterior sections of the gallbladder were then placed in an EndoCatch bag and removed. We then inspected the proximal cuff of the gallbladder. Near where we thought the cystic duct was, we could see a small opening. The decision was made to close this cuff over the top of this area using an interrupted 3-0 Vicryl suture. A single interrupted suture was placed over the area and used to cover with tissue. The surrounding tissue was tenuous, but seemed to hold appropriately. We then attempted to burn the back wall of the gallbladder that had been left in place. A small amount of bleeding was encountered. Clips were placed over the bleeding area and Surgicel and pressure held. Hemostasis was achieved. The very distal aspect of the gallbladder was then removed the remainder of the way using the Harmonic scalpel device. It was placed in a second EndoCatch bag and removed through the 12 mm port site again. We then copiously irrigated the abdomen with normal saline and suctioned this out. Endoscopic Moises was placed in the gallbladder bed, however, overall, it appeared hemostatic. There was no evidence of any bile leakage. A 19-Citizen [place] Bogdan drain was brought through the right flank port site and placed within the gallbladder fossa near the cut edge of the proximal gallbladder. It was then secured to the skin using interrupted 2-0 Ethilon suture. The remaining 5 mm trocars were removed under direct visualization and the abdomen allowed to desufflate. The 12 mm trocar was removed as well. The fascia at the superior umbilical site was weak and tenuous, however, it was closed with interrupted [id number] 0 Vicryl sutures. The skin was then closed at the 12 mm port site and the two other 5 mm port sites with sera. Sterile dressings were then applied. The patient tolerated the procedure well and was transferred to the PACU in stable condition. All counts were complete at the end of the case. CHARBEL BILLS /[id number]
[2021-03-26] MEDS: Lactated Ringers 1,000 ML IV SCH (18:09)
[2021-03-26] MEDS ORDERED: Insulin Glargine,Human Rec. Analog 100 Units/ML 3 ML Pen SUBCUT SCH (21:00)
[2021-03-27] MEDS: Lactated Ringers 1,000 ML IV SCH ×2 (02:16→10:59)
[2021-03-27] MEDS: Piperacillin/Tazobactam 3.375 GM in Sodium Chloride 0.9% 50 ML IV SCH ×4 (02:21→20:26)
[2021-03-27] MEDS: Acetaminophen/HYDROcodone 325-5 MG Tab PO PRN (04:29)
[2021-03-27] MEDS: Insulin Aspart 100 Units/ML 3 ML Pen SUBCUT SCH ×4 (06:05→17:41)
[2021-03-27 06:52] LABS: POTASSIUM,K 3.9 mmol/L (3.5-5.1)
[2021-03-27] MEDS: Heparin Sodium 5,000 Units/ML Vial SUBCUT SCH ×2 (08:24→16:27)
[2021-03-27] MEDS: amLODIPine 5 MG Tab PO SCH (08:26)
--- NOTE | 2021-03-27 11:48 | PCM.PN ---
- General Info Date of Service: 03/27/21 - Review of Systems Systems Review Comment:: feeling better, leg edema has improved - Patient Data Vitals - Most Recent: Last Vital Signs Temp 36.2 C 03/27/21 11:05 Pulse 77 03/27/21 11:05 Resp 17 03/27/21 11:05 BP 129/63 03/27/21 11:05 Pulse Ox 92 L 03/27/21 11:05 Weight - Most Recent: 107.728 kg I&O - Last 24 Hours: Intake & Output 03/26/21 03/27/21 03/27/21 22:59 06:59 14:59 Intake Total 1150 2950 Output Total 1030 465 Balance 120 2485 Lab Results Last 24 Hours: Laboratory Results - last 24 hr 03/26/21 03/26/21 03/26/21 Range/Units 11:51 17:59 20:50 WBC (4.0-11.0) K/uL RBC (4.50-5.90) M/uL Hgb (13.0-17.0) g/dL Hct (38.0-50.0) % MCV (80.0-98.0) fL MCH (27.0-32.0) pg MCHC (31.0-37.0) g/dL RDW Std Deviation (28.0-62.0) fl RDW Coeff of Mariah (11.0-15.0) % Plt Count (150-400) K/uL MPV (7.40-12.00) fL Neut % (Auto) (48.0-80.0) % Lymph % (Auto) (16.0-40.0) % [place] % (Auto) (0.0-15.0) % Eos % (Auto) (0.0-7.0) % Baso % (Auto) (0.0-1.5) % Neut # (Auto) (1.4-5.7) K/uL Lymph # (Auto) (0.6-2.4) K/uL [place] # (Auto) (0.0-0.8) K/uL Eos # (Auto) (0.0-0.7) K/uL Baso # (Auto) (0.0-0.1) K/uL Nucleated RBC % /100WBC Nucleated RBCs # K/uL Sodium (136-148) mmol/L Potassium (3.5-5.1) mmol/L Chloride (98-107) mmol/L Carbon Dioxide (21.0-32.0) mmol/L BUN (7.0-18.0) mg/dL Creatinine (0.8-1.3) mg/dL Est Cr Clr Drug Dosing mL/min Estimated GFR (MDRD) ml/min Glucose (74-106) mg/dL POC Glucose 202 H 223 H 256 H (70-99) mg/dL Calcium (8.5-10.1) mg/dL Total Bilirubin (0.2-1.0) mg/dL AST (15-37) IU/L ALT (14-63) IU/L Alkaline Phosphatase (46-116) U/L Total Protein (6.4-8.2) g/dL Albumin (3.4-5.0) g/dL Globulin (2.6-4.0) g/dL Albumin/Globulin Ratio (0.9-1.6) 03/26/21 03/27/21 03/27/21 Range/Units 23:11 05:59 06:02 WBC 6.52 (4.0-11.0) K/uL RBC 3.58 L (4.50-5.90) M/uL Hgb 10.8 L (13.0-17.0) g/dL Hct 31.0 L (38.0-50.0) % MCV 86.6 (80.0-98.0) fL MCH 30.2 (27.0-32.0) pg MCHC 34.8 (31.0-37.0) g/dL RDW Std Deviation 45.4 (28.0-62.0) fl RDW Coeff of Mariah 14 (11.0-15.0) % Plt Count 109 L (150-400) K/uL MPV 11.60 (7.40-12.00) fL Neut % (Auto) 77.0 (48.0-80.0) % Lymph % (Auto) 6.9 L (16.0-40.0) % [place] % (Auto) 15.3 H (0.0-15.0) % Eos % (Auto) 0.6 (0.0-7.0) % Baso % (Auto) 0.2 (0.0-1.5) % Neut # (Auto) 5.0 (1.4-5.7) K/uL Lymph # (Auto) 0.5 L (0.6-2.4) K/uL [place] # (Auto) 1.0 H (0.0-0.8) K/uL Eos # (Auto) 0.0 (0.0-0.7) K/uL Baso # (Auto) 0.0 (0.0-0.1) K/uL Nucleated RBC % 0.0 /100WBC Nucleated RBCs # 0 K/uL Sodium (136-148) mmol/L Potassium (3.5-5.1) mmol/L Chloride (98-107) mmol/L Carbon Dioxide (21.0-32.0) mmol/L BUN (7.0-18.0) mg/dL Creatinine (0.8-1.3) mg/dL Est Cr Clr Drug Dosing mL/min Estimated GFR (MDRD) ml/min Glucose (74-106) mg/dL POC Glucose 310 H 237 H (70-99) mg/dL Calcium (8.5-10.1) mg/dL Total Bilirubin (0.2-1.0) mg/dL AST (15-37) IU/L ALT (14-63) IU/L Alkaline Phosphatase (46-116) U/L Total Protein (6.4-8.2) g/dL Albumin (3.4-5.0) g/dL Globulin (2.6-4.0) g/dL Albumin/Globulin Ratio (0.9-1.6) 03/27/21 Range/Units 06:02 WBC (4.0-11.0) K/uL RBC (4.50-5.90) M/uL Hgb (13.0-17.0) g/dL Hct (38.0-50.0) % MCV (80.0-98.0) fL MCH (27.0-32.0) pg MCHC (31.0-37.0) g/dL RDW Std Deviation (28.0-62.0) fl RDW Coeff of Mariah (11.0-15.0) % Plt Count (150-400) K/uL MPV (7.40-12.00) fL Neut % (Auto) (48.0-80.0) % Lymph % (Auto) (16.0-40.0) % [place] % (Auto) (0.0-15.0) % Eos % (Auto) (0.0-7.0) % Baso % (Auto) (0.0-1.5) % Neut # (Auto) (1.4-5.7) K/uL Lymph # (Auto) (0.6-2.4) K/uL [place] # (Auto) (0.0-0.8) K/uL Eos # (Auto) (0.0-0.7) K/uL Baso # (Auto) (0.0-0.1) K/uL Nucleated RBC % /100WBC Nucleated RBCs # K/uL Sodium 130 L (136-148) mmol/L Potassium 3.9 (3.5-5.1) mmol/L Chloride 98 (98-107) mmol/L Carbon Dioxide 23.0 (21.0-32.0) mmol/L BUN 34 H (7.0-18.0) mg/dL Creatinine 2.1 H (0.8-1.3) mg/dL Est Cr Clr Drug Dosing 35.36 mL/min Estimated GFR (MDRD) 31.5 ml/min Glucose 237 H (74-106) mg/dL POC Glucose (70-99) mg/dL Calcium 7.5 L (8.5-10.1) mg/dL Total Bilirubin 0.3 (0.2-1.0) mg/dL AST 36 (15-37) IU/L ALT 40 (14-63) IU/L Alkaline Phosphatase 105 (46-116) U/L Total Protein 5.2 L (6.4-8.2) g/dL Albumin 1.4 L (3.4-5.0) g/dL Globulin 3.8 (2.6-4.0) g/dL Albumin/Globulin Ratio 0.4 L (0.9-1.6) Jacques Results Last 24 Hours: Microbiology 03/25/21 18:27 Aerobic Blood Culture - Preliminary Blood - Venous - Lab Draw NO GROWTH AFTER 1 DAY Anaerobic Blood Culture - Preliminary NO GROWTH AFTER 1 DAY 03/25/21 18:07 Aerobic Blood Culture - Preliminary Blood - Venous NO GROWTH AFTER 1 DAY Anaerobic Blood Culture - Preliminary NO GROWTH AFTER 1 DAY Med Orders - Current: Current Medications Hydrocodone Bitart/Acetaminophen (Acetaminophen/Hydrocodone 325-5 Mg Tab) 1 tab PO Q4H PRN PRN Reason: Pain (moderate 4-6) Last Admin: 03/27/21 04:29 Dose: 1 tab Documented by: Amlodipine Besylate (Amlodipine 5 Mg Tab) 10 mg PO DAILY [facility] Last Admin: 03/27/21 08:26 Dose: 10 mg Documented by: Dextrose/Water (50% Dextrose In Water 50 Ml Syringe) 50 ml IVPUSH ASDIRECTED PRN PRN Reason: Hypoglycemia Glucagon (Glucagon,Human Recombinant 1 Mg Vial) 1 mg IM ASDIRECTED PRN PRN Reason: Hypoglycemia Heparin Sodium (Porcine) (Heparin Sodium 5,000 Units/Ml Vial) 5,000 units SUBCUT Q8H [facility] Last Admin: 03/27/21 08:24 Dose: 5,000 units Documented by: Hydromorphone HCl (Hydromorphone 1 Mg/Ml Syringe) 0.5 mg IVPUSH Q2H PRN PRN Reason: Pain (severe 7-10) Last Admin: 03/26/21 09:35 Dose: 0.5 mg Documented by: Piperacillin Sod/Tazobactam (Sod 3.375 gm/ Sodium Chloride) 50 mls @ 100 mls/hr IV Q6H [facility] Last Admin: 03/27/21 08:25 Dose: 100 mls/hr Documented by: Lactated Ringer's (Ringers, Lactated) 1,000 mls @ 125 mls/hr IV ASDIRECTED [facility] Last Admin: 03/27/21 10:59 Dose: 125 mls/hr Documented by: Insulin Aspart (Insulin Aspart 100 Units/Ml 3 Ml Pen) 0 unit SUBCUT Q6H [facility]; Protocol Last Admin: 03/27/21 06:05 Dose: 2 units Documented by: Insulin Glargine (Insulin Glargine,Human Rec. Analog 100 Units/Ml 3 Ml Pen) 18 units SUBCUT BEDTIME [facility] Last Admin: 03/26/21 20:52 Dose: 18 units Documented by: Ondansetron HCl (Ondansetron 4 Mg/2 Ml Sdv) 4 mg IVPUSH Q4H PRN PRN Reason: Nausea Ondansetron HCl (Ondansetron 4 Mg/2 Ml Sdv) 4 mg IVPUSH Q6H PRN PRN Reason: Nausea/Vomiting Discontinued Medications Albuterol (Albuterol 0.083% 2.5 Mg/3 Ml Neb Soln) 2.5 mg NEB ONETIME PRN PRN Reason: Wheezing Bupivacaine HCl (Bupivacaine 0.5% 30 Ml Sdv) Confirm Administered Dose 30 ml .ROUTE .STK-MED ONE Stop: 03/26/21 13:04 Droperidol (Droperidol 5 Mg/2 Ml Sdv) 0.625 mg IVPUSH ONETIME PRN PRN Reason: Nausea/Vomiting Fentanyl (Fentanyl 250 Mcg/5 Ml Sdv) Confirm Administered Dose 250 mcg .ROUTE .STK-MED ONE Stop: 03/26/21 11:15 Fentanyl (Fentanyl 100 Mcg/2 Ml Sdv) 50 mcg IVPUSH Q5M PRN PRN Reason: Pain (mild 1-3) Glycopyrrolate (Glycopyrrolate 0.2 Mg/Ml Sdv) Confirm Administered Dose 0.2 mg .ROUTE .STK-MED ONE Stop: 03/26/21 11:17 Hydromorphone HCl (Hydromorphone 2 Mg/Ml Syringe) 0.5 mg IVPUSH ONETIME ONE Stop: 03/25/21 18:10 Last Admin: 03/25/21 18:34 Dose: 0.5 mg Documented by: Hydromorphone HCl (Hydromorphone 2 Mg/Ml Syringe) 1 mg IVPUSH Q10M PRN PRN Reason: Pain (moderate 4-6) Hydromorphone HCl (Hydromorphone 2 Mg/Ml Syringe) Confirm Administered Dose 2 mg .ROUTE .STK-MED ONE Stop: 03/26/21 16:05 Piperacillin Sod/Tazobactam (Sod 4.5 gm/ Sodium Chloride) 100 mls @ 100 mls/hr IV ONETIME ONE Stop: 03/25/21 19:02 Last Admin: 03/25/21 18:35 Dose: 100 mls/hr Documented by: Lactated Ringer's (Ringers, Lactated) 1,000 mls @ 999 mls/hr IV .BOLUS ONE Stop: 03/25/21 19:08 Last Admin: 03/25/21 18:34 Dose: 999 mls/hr Documented by: Acetaminophen (Ofirmev 1000 Mg/100 Ml) Confirm Administered Dose 100 mls @ as directed .ROUTE .STK-MED ONE Stop: 03/26/21 13:38 Acetaminophen (Ofirmev 1000 Mg/100 Ml) Confirm Administered Dose 100 mls @ as directed .ROUTE .STK-MED ONE Stop: 03/26/21 13:38 Indocyanine Green (Indocyanine Green 25 Mg Sdv) Confirm Administered Dose 25 mg .ROUTE .STK-MED ONE Stop: 03/26/21 11:02 Insulin Glargine (Insulin Glargine,Human Rec. Analog 100 Units/Ml 3 Ml Pen) 18 units SUBCUT NOW ONE Stop: 03/25/21 23:31 Last Admin: 03/26/21 00:10 Dose: 18 units Documented by: Ketamine HCl (Ketamine 500 Mg/10 Ml Mdv) Confirm Administered Dose 500 mg .ROUTE .STK-MED ONE Stop: 03/26/21 11:15 Ketorolac Tromethamine (Ketorolac 30 Mg/Ml Sdv) Confirm Administered Dose 30 mg .ROUTE .ST-MED ONE Stop: 03/26/21 11:17 Lidocaine (Lidocaine 2% 5 Ml Sdv) Confirm Administered Dose 5 ml .ROUTE .STK-MED ONE Stop: 03/26/21 11:17 Metoclopramide HCl (Metoclopramide 10 Mg/2 Ml Sdv) 10 mg IVPUSH ONETIME PRN PRN Reason: Nausea/Vomiting Morphine Sulfate (Morphine 2 Mg/Ml Syringe) 2 mg IVPUSH Q10M PRN PRN Reason: Pain (severe 7-10) Naloxone HCl (Naloxone 0.4 Mg/Ml Syringe) 0.1 mg IVPUSH ASDIRECTED PRN PRN Reason: Respiratory Depression Octyl Cyanoacrylate (Octyl 2-Cyanoacrylate 1 Tube) Confirm Administered Dose 1 applic .ROUTE .STK-MED ONE Stop: 03/26/21 14:25 Ondansetron HCl (Ondansetron 4 Mg/2 Ml Sdv) 4 mg IVPUSH ONETIME PRN PRN Reason: Nausea/Vomiting Propofol (Propofol 200 Mg/20 Ml Sdv) Confirm Administered Dose 200 mg .ROUTE .STK-MED ONE Stop: 03/26/21 11:15 Rocuronium Laquey (Rocuronium [place] 50 Mg/5 Ml Syringe) Confirm Administered Dose 50 mg .ROUTE .STK-MED ONE Stop: 03/26/21 11:17 Sugammadex Sodium (Sugammadex Sodium 200 Mg/2 Ml Vial) Confirm Administered Dose 200 mg .ROUTE .STK-MED ONE Stop: 03/26/21 11:17 - Exam Urinary Catheter Total Time: 0Days 20Hours General: Alert, Oriented Neck: Supple Lungs: Clear to Auscultation, Normal Respiratory Effort GI/Abdominal Exam: Normal Bowel Sounds, Soft, No Distention Extremities: Non-Tender, No Pedal Edema Skin: Warm, Dry, Intact Neurological: No New Focal Deficit - Patient Data Lab Results Last 24 hrs: Laboratory Results - last 24 hr 03/26/21 03/26/21 03/26/21 Range/Units 11:51 17:59 20:50 WBC (4.0-11.0) K/uL RBC (4.50-5.90) M/uL Hgb (13.0-17.0) g/dL Hct (38.0-50.0) % MCV (80.0-98.0) fL MCH (27.0-32.0) pg MCHC (31.0-37.0) g/dL RDW Std Deviation (28.0-62.0) fl RDW Coeff of Mariah (11.0-15.0) % Plt Count (150-400) K/uL MPV (7.40-12.00) fL Neut % (Auto) (48.0-80.0) % Lymph % (Auto) (16.0-40.0) % [place] % (Auto) (0.0-15.0) % Eos % (Auto) (0.0-7.0) % Baso % (Auto) (0.0-1.5) % Neut # (Auto) (1.4-5.7) K/uL Lymph # (Auto) (0.6-2.4) K/uL [place] # (Auto) (0.0-0.8) K/uL Eos # (Auto) (0.0-0.7) K/uL Baso # (Auto) (0.0-0.1) K/uL Nucleated RBC % /100WBC Nucleated RBCs # K/uL Sodium (136-148) mmol/L Potassium (3.5-5.1) mmol/L Chloride (98-107) mmol/L Carbon Dioxide (21.0-32.0) mmol/L BUN (7.0-18.0) mg/dL Creatinine (0.8-1.3) mg/dL Est Cr Clr Drug Dosing mL/min Estimated GFR (MDRD) ml/min Glucose (74-106) mg/dL POC Glucose 202 H 223 H 256 H (70-99) mg/dL Calcium (8.5-10.1) mg/dL Total Bilirubin (0.2-1.0) mg/dL AST (15-37) IU/L ALT (14-63) IU/L Alkaline Phosphatase (46-116) U/L Total Protein (6.4-8.2) g/dL Albumin (3.4-5.0) g/dL Globulin (2.6-4.0) g/dL Albumin/Globulin Ratio (0.9-1.6) 03/26/21 03/27/21 03/27/21 Range/Units 23:11 05:59 06:02 WBC 6.52 (4.0-11.0) K/uL RBC 3.58 L (4.50-5.90) M/uL Hgb 10.8 L (13.0-17.0) g/dL Hct 31.0 L (38.0-50.0) % MCV 86.6 (80.0-98.0) fL MCH 30.2 (27.0-32.0) pg MCHC 34.8 (31.0-37.0) g/dL RDW Std Deviation 45.4 (28.0-62.0) fl RDW Coeff of Mariah 14 (11.0-15.0) % Plt Count 109 L (150-400) K/uL MPV 11.60 (7.40-12.00) fL Neut % (Auto) 77.0 (48.0-80.0) % Lymph % (Auto) 6.9 L (16.0-40.0) % [place] % (Auto) 15.3 H (0.0-15.0) % Eos % (Auto) 0.6 (0.0-7.0) % Baso % (Auto) 0.2 (0.0-1.5) % Neut # (Auto) 5.0 (1.4-5.7) K/uL Lymph # (Auto) 0.5 L (0.6-2.4) K/uL [place] # (Auto) 1.0 H (0.0-0.8) K/uL Eos # (Auto) 0.0 (0.0-0.7) K/uL Baso # (Auto) 0.0 (0.0-0.1) K/uL Nucleated RBC % 0.0 /100WBC Nucleated RBCs # 0 K/uL Sodium (136-148) mmol/L Potassium (3.5-5.1) mmol/L Chloride (98-107) mmol/L Carbon Dioxide (21.0-32.0) mmol/L BUN (7.0-18.0) mg/dL Creatinine (0.8-1.3) mg/dL Est Cr Clr Drug Dosing mL/min Estimated GFR (MDRD) ml/min Glucose (74-106) mg/dL POC Glucose 310 H 237 H (70-99) mg/dL Calcium (8.5-10.1) mg/dL Total Bilirubin (0.2-1.0) mg/dL AST (15-37) IU/L ALT (14-63) IU/L Alkaline Phosphatase (46-116) U/L Total Protein (6.4-8.2) g/dL Albumin (3.4-5.0) g/dL Globulin (2.6-4.0) g/dL Albumin/Globulin Ratio (0.9-1.6) 03/27/21 Range/Units 06:02 WBC (4.0-11.0) K/uL RBC (4.50-5.90) M/uL Hgb (13.0-17.0) g/dL Hct (38.0-50.0) % MCV (80.0-98.0) fL MCH (27.0-32.0) pg MCHC (31.0-37.0) g/dL RDW Std Deviation (28.0-62.0) fl RDW Coeff of Mariah (11.0-15.0) % Plt Count (150-400) K/uL MPV (7.40-12.00) fL Neut % (Auto) (48.0-80.0) % Lymph % (Auto) (16.0-40.0) % [place] % (Auto) (0.0-15.0) % Eos % (Auto) (0.0-7.0) % Baso % (Auto) (0.0-1.5) % Neut # (Auto) (1.4-5.7) K/uL Lymph # (Auto) (0.6-2.4) K/uL [place] # (Auto) (0.0-0.8) K/uL Eos # (Auto) (0.0-0.7) K/uL Baso # (Auto) (0.0-0.1) K/uL Nucleated RBC % /100WBC Nucleated RBCs # K/uL Sodium 130 L (136-148) mmol/L Potassium 3.9 (3.5-5.1) mmol/L Chloride 98 (98-107) mmol/L Carbon Dioxide 23.0 (21.0-32.0) mmol/L BUN 34 H (7.0-18.0) mg/dL Creatinine 2.1 H (0.8-1.3) mg/dL Est Cr Clr Drug Dosing 35.36 mL/min Estimated GFR (MDRD) 31.5 ml/min Glucose 237 H (74-106) mg/dL POC Glucose (70-99) mg/dL Calcium 7.5 L (8.5-10.1) mg/dL Total Bilirubin 0.3 (0.2-1.0) mg/dL AST 36 (15-37) IU/L ALT 40 (14-63) IU/L Alkaline Phosphatase 105 (46-116) U/L Total Protein 5.2 L (6.4-8.2) g/dL Albumin 1.4 L (3.4-5.0) g/dL Globulin 3.8 (2.6-4.0) g/dL Albumin/Globulin Ratio 0.4 L (0.9-1.6) Result Diagrams: 03/27/21 06:02 03/27/21 06:02 Jacques Results Last 24 hrs: Microbiology 03/25/21 18:27 Aerobic Blood Culture - Preliminary Blood - Venous - Lab Draw NO GROWTH AFTER 1 DAY Anaerobic Blood Culture - Preliminary NO GROWTH AFTER 1 DAY 03/25/21 18:07 Aerobic Blood Culture - Preliminary Blood - Venous NO GROWTH AFTER 1 DAY Anaerobic Blood Culture - Preliminary NO GROWTH AFTER 1 DAY Sepsis Event Note - Evaluation Sepsis Screening Result: No Definite Risk - Focused Exam Vital Signs: Vital Signs Temp Pulse Resp BP BP BP Pulse Ox 03/27/21 11:05 36.2 C 77 17 129/63 92 L 03/27/21 08:26 152/70 H 03/27/21 08:00 36.4 C 76 18 152/70 H 93 L 03/27/21 02:25 36.3 C 67 18 119/61 92 L - Problem List Review Problem List Initiated/Reviewed/Updated: Yes - My Orders Last 24 Hours: My Active Orders 03/26/21 21:00 Insulin Glarg,Human.Rec.Analog [LantUS Solostar] 18 units SUBCUT BEDTIME 03/27/21 Lunch Full Liquid Diet [DIET] - Plan Plan:: 71 yo male admitted for acute cholecystitis Acute cholecystitis: Dr. Schwartz has been consulted, s/p cholecystectomy Hypoxia: likely 2/2 atelectasis, will encourage incentive spirometry acute on CKD: Creatinine 2.1 will continue IV fluids for today and hold ramipril and diuretic Hypertension: continue amlodipine DM: patient uses insulin pump at home, will give lantus 22 units daily with sliding scale novolog DVT ppx: heparin.
--- NOTE | 2021-03-27 13:48 | PN ---
SUBJECTIVE: The patient is sitting in his chair in his room. The patient says he is feeling much better than yesterday before the surgery. He says the abdominal pain that has been there for quite some time is now gone. He is feeling very good. He says he is passing some flatus and has tolerated a clear liquid diet and in fact is feeling hungry. OBJECTIVE: VITAL SIGNS: Temperature is 97.5, blood pressure is 152/70, satting 93% on 4 L. ABDOMEN: Soft and nondistended. Some minimal incisional tenderness. ARAM is in place with some serosanguineous drainage. The output has been about 205 mL out since the surgery. LABORATORY DATA: White cell count is 6.52, hemoglobin is 10.8, platelet count is 109. Sodium is 130, potassium 3.9, BUN is 34, creatinine 2.1, glucose is 237, total bilirubin 0.3, AST is 36, ALT is 40, alkaline phosphatase is 105. ASSESSMENT AND PLAN: The patient is a pleasant 71-year-old gentleman, who yesterday underwent laparoscopic subtotal cholecystectomy for a gangrenous cholecystitis. The patient is doing well this morning. Did explain again to the patient and his about the surgery. I did go over that it was only a subtotal cholecystectomy. It is okay to advance the patient's diet. We will take the Maldonado out. I would leave his fluid going because he will be third-spacing and he did have a slight bump in his creatinine and BUN. I did discuss this with the medicine team. The patient should continue his antibiotic because of the gangrenous gallbladder. All the patient's questions were answered. KIRTI BILLS /[id number] MTDD
[2021-03-27] MEDS: Calcium Carbonate 500 MG Tab.Chew PO PRN ×2 (14:04→21:01)
[2021-03-27] MEDS ORDERED: Insulin Glargine,Human Rec. Analog 100 Units/ML 3 ML Pen SUBCUT SCH (21:00)
[2021-03-28] MEDS: Heparin Sodium 5,000 Units/ML Vial SUBCUT SCH ×3 (00:06→16:29)
[2021-03-28] MEDS: Piperacillin/Tazobactam 3.375 GM in Sodium Chloride 0.9% 50 ML IV SCH ×2 (02:56→08:20)
[2021-03-28] MEDS: Acetaminophen/HYDROcodone 325-5 MG Tab PO PRN ×2 (03:13→16:28)
[2021-03-28 05:57] LABS: CARBON DIOXIDE,CO2 25.4 mmol/L (21.0-32.0); POTASSIUM,K 3.5 mmol/L (3.5-5.1)
[2021-03-28] MEDS: amLODIPine 5 MG Tab PO SCH (08:23)
--- NOTE | 2021-03-28 10:31 | CR ---
INDICATION: Hypoxia TECHNIQUE: Single view chest. FINDINGS: Low lung volumes. Normal cardiac mediastinal silhouette. Basilar atelectasis. No pneumothorax. No effusion. Dictated by Sherron Neil MD @ 03/28/2021 10:30:[address] Sherron Neil @ Mar 28 2021 10:30AM
[2021-03-28] MEDS: Pantoprazole 40 MG in Sodium Chloride 0.9% 10 ML IV SCH (11:43)
--- NOTE | 2021-03-28 11:50 | PCM.PN ---
- General Info Date of Service: 03/28/21 - Review of Systems Systems Review Comment:: reports epigastric abdominal pain is gone and now is replaced with surgical site pain, denies any cough, fevers, shortness of breath, tolerating an oral diet. - Patient Data Vitals - Most Recent: Last Vital Signs Temp 36.2 C 03/28/21 08:18 Pulse 84 03/28/21 08:18 Resp 20 03/28/21 08:18 BP 139/84 03/28/21 08:23 Pulse Ox 91 L 03/28/21 08:18 Weight - Most Recent: 107.728 kg I&O - Last 24 Hours: Intake & Output 03/27/21 03/28/21 03/28/21 22:59 06:59 14:59 Intake Total 1680 650 Output Total 835 585 Balance 845 65 Lab Results Last 24 Hours: Laboratory Results - last 24 hr 03/27/21 03/27/21 03/27/21 Range/Units 12:27 13:36 16:23 WBC (4.0-11.0) K/uL RBC (4.50-5.90) M/uL Hgb (13.0-17.0) g/dL Hct (38.0-50.0) % MCV (80.0-98.0) fL MCH (27.0-32.0) pg MCHC (31.0-37.0) g/dL RDW Std Deviation (28.0-62.0) fl RDW Coeff of Mariah (11.0-15.0) % Plt Count (150-400) K/uL MPV (7.40-12.00) fL Neut % (Auto) (48.0-80.0) % Lymph % (Auto) (16.0-40.0) % Bay % (Auto) (0.0-15.0) % Eos % (Auto) (0.0-7.0) % Baso % (Auto) (0.0-1.5) % Neut # (Auto) (1.4-5.7) K/uL Lymph # (Auto) (0.6-2.4) K/uL Bay # (Auto) (0.0-0.8) K/uL Eos # (Auto) (0.0-0.7) K/uL Baso # (Auto) (0.0-0.1) K/uL Nucleated RBC % /100WBC Nucleated RBCs # K/uL Sodium (136-148) mmol/L Potassium (3.5-5.1) mmol/L Chloride (98-107) mmol/L Carbon Dioxide (21.0-32.0) mmol/L BUN (7.0-18.0) mg/dL Creatinine (0.8-1.3) mg/dL Est Cr Clr Drug Dosing mL/min Estimated GFR (MDRD) ml/min Glucose (74-106) mg/dL POC Glucose 433 H* 476 H* 389 H (70-99) mg/dL Calcium (8.5-10.1) mg/dL Total Bilirubin (0.2-1.0) mg/dL AST (15-37) IU/L ALT (14-63) IU/L Alkaline Phosphatase (46-116) U/L Total Protein (6.4-8.2) g/dL Albumin (3.4-5.0) g/dL Globulin (2.6-4.0) g/dL Albumin/Globulin Ratio (0.9-1.6) 03/27/21 03/27/21 03/28/21 Range/Units 17:38 20:12 00:04 WBC (4.0-11.0) K/uL RBC (4.50-5.90) M/uL Hgb (13.0-17.0) g/dL Hct (38.0-50.0) % MCV (80.0-98.0) fL MCH (27.0-32.0) pg MCHC (31.0-37.0) g/dL RDW Std Deviation (28.0-62.0) fl RDW Coeff of Mariah (11.0-15.0) % Plt Count (150-400) K/uL MPV (7.40-12.00) fL Neut % (Auto) (48.0-80.0) % Lymph % (Auto) (16.0-40.0) % Bay % (Auto) (0.0-15.0) % Eos % (Auto) (0.0-7.0) % Baso % (Auto) (0.0-1.5) % Neut # (Auto) (1.4-5.7) K/uL Lymph # (Auto) (0.6-2.4) K/uL Bay # (Auto) (0.0-0.8) K/uL Eos # (Auto) (0.0-0.7) K/uL Baso # (Auto) (0.0-0.1) K/uL Nucleated RBC % /100WBC Nucleated RBCs # K/uL Sodium (136-148) mmol/L Potassium (3.5-5.1) mmol/L Chloride (98-107) mmol/L Carbon Dioxide (21.0-32.0) mmol/L BUN (7.0-18.0) mg/dL Creatinine (0.8-1.3) mg/dL Est Cr Clr Drug Dosing mL/min Estimated GFR (MDRD) ml/min Glucose (74-106) mg/dL POC Glucose 310 H 223 H 157 H (70-99) mg/dL Calcium (8.5-10.1) mg/dL Total Bilirubin (0.2-1.0) mg/dL AST (15-37) IU/L ALT (14-63) IU/L Alkaline Phosphatase (46-116) U/L Total Protein (6.4-8.2) g/dL Albumin (3.4-5.0) g/dL Globulin (2.6-4.0) g/dL Albumin/Globulin Ratio (0.9-1.6) 03/28/21 03/28/21 03/28/21 Range/Units 03:36 05:11 05:11 WBC 12.16 H (4.0-11.0) K/uL RBC 4.28 L (4.50-5.90) M/uL Hgb 13.0 (13.0-17.0) g/dL Hct 36.8 L (38.0-50.0) % MCV 86.0 (80.0-98.0) fL MCH 30.4 (27.0-32.0) pg MCHC 35.3 (31.0-37.0) g/dL RDW Std Deviation 45.0 (28.0-62.0) fl RDW Coeff of Mariah 14 (11.0-15.0) % Plt Count 177 (150-400) K/uL MPV 11.60 (7.40-12.00) fL Neut % (Auto) 82.9 H (48.0-80.0) % Lymph % (Auto) 5.7 L (16.0-40.0) % Bay % (Auto) 10.2 (0.0-15.0) % Eos % (Auto) 1.1 (0.0-7.0) % Baso % (Auto) 0.1 (0.0-1.5) % Neut # (Auto) 10.1 H (1.4-5.7) K/uL Lymph # (Auto) 0.7 (0.6-2.4) K/uL Bay # (Auto) 1.2 H (0.0-0.8) K/uL Eos # (Auto) 0.1 (0.0-0.7) K/uL Baso # (Auto) 0.0 (0.0-0.1) K/uL Nucleated RBC % 0.0 /100WBC Nucleated RBCs # 0 K/uL Sodium 131 L (136-148) mmol/L Potassium 3.5 (3.5-5.1) mmol/L Chloride 94 L (98-107) mmol/L Carbon Dioxide 25.4 (21.0-32.0) mmol/L BUN 48 H (7.0-18.0) mg/dL Creatinine 2.4 H (0.8-1.3) mg/dL Est Cr Clr Drug Dosing 30.94 mL/min Estimated GFR (MDRD) 27.0 ml/min Glucose 121 H (74-106) mg/dL POC Glucose 104 H (70-99) mg/dL Calcium 8.2 L (8.5-10.1) mg/dL Total Bilirubin 0.4 (0.2-1.0) mg/dL AST 25 (15-37) IU/L ALT 42 (14-63) IU/L Alkaline Phosphatase 112 (46-116) U/L Total Protein 6.0 L (6.4-8.2) g/dL Albumin 1.6 L (3.4-5.0) g/dL Globulin 4.4 H (2.6-4.0) g/dL Albumin/Globulin Ratio 0.4 L (0.9-1.6) 03/28/21 Range/Units 08:11 WBC (4.0-11.0) K/uL RBC (4.50-5.90) M/uL Hgb (13.0-17.0) g/dL Hct (38.0-50.0) % MCV (80.0-98.0) fL MCH (27.0-32.0) pg MCHC (31.0-37.0) g/dL RDW Std Deviation (28.0-62.0) fl RDW Coeff of Mariah (11.0-15.0) % Plt Count (150-400) K/uL MPV (7.40-12.00) fL Neut % (Auto) (48.0-80.0) % Lymph % (Auto) (16.0-40.0) % Bay % (Auto) (0.0-15.0) % Eos % (Auto) (0.0-7.0) % Baso % (Auto) (0.0-1.5) % Neut # (Auto) (1.4-5.7) K/uL Lymph # (Auto) (0.6-2.4) K/uL Bay # (Auto) (0.0-0.8) K/uL Eos # (Auto) (0.0-0.7) K/uL Baso # (Auto) (0.0-0.1) K/uL Nucleated RBC % /100WBC Nucleated RBCs # K/uL Sodium (136-148) mmol/L Potassium (3.5-5.1) mmol/L Chloride (98-107) mmol/L Carbon Dioxide (21.0-32.0) mmol/L BUN (7.0-18.0) mg/dL Creatinine (0.8-1.3) mg/dL Est Cr Clr Drug Dosing mL/min Estimated GFR (MDRD) ml/min Glucose (74-106) mg/dL POC Glucose 151 H (70-99) mg/dL Calcium (8.5-10.1) mg/dL Total Bilirubin (0.2-1.0) mg/dL AST (15-37) IU/L ALT (14-63) IU/L Alkaline Phosphatase (46-116) U/L Total Protein (6.4-8.2) g/dL Albumin (3.4-5.0) g/dL Globulin (2.6-4.0) g/dL Albumin/Globulin Ratio (0.9-1.6) Jacques Results Last 24 Hours: Microbiology 03/26/21 14:42 Aerobic Culture - Preliminary Gallbladder Fluid - Bile Gram Negative Rods Gram Stain - Final 03/25/21 18:27 Aerobic Blood Culture - Preliminary Blood - Venous - Lab Draw NO GROWTH AFTER 2 DAYS Anaerobic Blood Culture - Preliminary NO GROWTH AFTER 2 DAYS 03/25/21 18:07 Aerobic Blood Culture - Preliminary Blood - Venous NO GROWTH AFTER 2 DAYS Anaerobic Blood Culture - Preliminary NO GROWTH AFTER 2 DAYS Med Orders - Current: Current Medications Hydrocodone Bitart/Acetaminophen (Acetaminophen/Hydrocodone 325-5 Mg Tab) 1 tab PO Q4H PRN PRN Reason: Pain (moderate 4-6) Last Admin: 03/28/21 03:13 Dose: 1 tab Documented by: Amlodipine Besylate (Amlodipine 5 Mg Tab) 10 mg PO DAILY [facility] Last Admin: 03/28/21 08:23 Dose: 10 mg Documented by: Calcium Carbonate/Glycine (Calcium Carbonate 500 Mg Tab.Chew) 1,000 mg PO TID PRN PRN Reason: Indigestion Last Admin: 03/27/21 21:01 Dose: 1,000 mg Documented by: Dextrose/Water (50% Dextrose In Water 50 Ml Syringe) 50 ml IVPUSH ASDIRECTED PRN PRN Reason: Hypoglycemia Glucagon (Glucagon,Human Recombinant 1 Mg Vial) 1 mg IM ASDIRECTED PRN PRN Reason: Hypoglycemia Heparin Sodium (Porcine) (Heparin Sodium 5,000 Units/Ml Vial) 5,000 units SUBCUT Q8H [facility] Last Admin: 03/28/21 08:22 Dose: 5,000 units Documented by: Hydromorphone HCl (Hydromorphone 1 Mg/Ml Syringe) 0.5 mg IVPUSH Q2H PRN PRN Reason: Pain (severe 7-10) Last Admin: 03/26/21 09:35 Dose: 0.5 mg Documented by: Pantoprazole Sodium 40 mg/ (Sodium Chloride) 10 mls @ 300 mls/hr IV DAILY [facility] Lactated Ringer's (Ringers, Lactated) 1,000 mls @ 100 mls/hr IV ASDIRECTED [facility] Metronidazole 500 mg/ Premix 100 mls @ 100 mls/hr IV QID [facility] Levofloxacin/Dextrose 750 mg/ (Premix) 150 mls @ 100 mls/hr IV Q48H [facility] Ondansetron HCl (Ondansetron 4 Mg/2 Ml Sdv) 4 mg IVPUSH Q4H PRN PRN Reason: Nausea Ondansetron HCl (Ondansetron 4 Mg/2 Ml Sdv) 4 mg IVPUSH Q6H PRN PRN Reason: Nausea/Vomiting Discontinued Medications Albuterol (Albuterol 0.083% 2.5 Mg/3 Ml Neb Soln) 2.5 mg NEB ONETIME PRN PRN Reason: Wheezing Bupivacaine HCl (Bupivacaine 0.5% 30 Ml Sdv) Confirm Administered Dose 30 ml .ROUTE .STK-MED ONE Stop: 03/26/21 13:04 Droperidol (Droperidol 5 Mg/2 Ml Sdv) 0.625 mg IVPUSH ONETIME PRN PRN Reason: Nausea/Vomiting Fentanyl (Fentanyl 250 Mcg/5 Ml Sdv) Confirm Administered Dose 250 mcg .ROUTE .STK-MED ONE Stop: 03/26/21 11:15 Fentanyl (Fentanyl 100 Mcg/2 Ml Sdv) 50 mcg IVPUSH Q5M PRN PRN Reason: Pain (mild 1-3) Glycopyrrolate (Glycopyrrolate 0.2 Mg/Ml Sdv) Confirm Administered Dose 0.2 mg .ROUTE .STK-MED ONE Stop: 03/26/21 11:17 Hydromorphone HCl (Hydromorphone 2 Mg/Ml Syringe) 0.5 mg IVPUSH ONETIME ONE Stop: 03/25/21 18:10 Last Admin: 03/25/21 18:34 Dose: 0.5 mg Documented by: Hydromorphone HCl (Hydromorphone 2 Mg/Ml Syringe) 1 mg IVPUSH Q10M PRN PRN Reason: Pain (moderate 4-6) Hydromorphone HCl (Hydromorphone 2 Mg/Ml Syringe) Confirm Administered Dose 2 mg .ROUTE .STK-MED ONE Stop: 03/26/21 16:05 Piperacillin Sod/Tazobactam (Sod 4.5 gm/ Sodium Chloride) 100 mls @ 100 mls/hr IV ONETIME ONE Stop: 03/25/21 19:02 Last Admin: 03/25/21 18:35 Dose: 100 mls/hr Documented by: Lactated Ringer's (Ringers, Lactated) 1,000 mls @ 999 mls/hr IV .BOLUS ONE Stop: 03/25/21 19:08 Last Admin: 03/25/21 18:34 Dose: 999 mls/hr Documented by: Piperacillin Sod/Tazobactam (Sod 3.375 gm/ Sodium Chloride) 50 mls @ 100 mls/hr IV Q6H [facility] Last Admin: 03/28/21 08:20 Dose: 100 mls/hr Documented by: Acetaminophen (Ofirmev 1000 Mg/100 Ml) Confirm Administered Dose 100 mls @ as directed .ROUTE .STK-MED ONE Stop: 03/26/21 13:38 Acetaminophen (Ofirmev 1000 Mg/100 Ml) Confirm Administered Dose 100 mls @ as directed .ROUTE .STK-MED ONE Stop: 03/26/21 13:38 Lactated Ringer's (Ringers, Lactated) 1,000 mls @ 125 mls/hr IV ASDIRECTED [facility] Last Admin: 03/27/21 10:59 Dose: 125 mls/hr Documented by: Indocyanine Green (Indocyanine Green 25 Mg Sdv) Confirm Administered Dose 25 mg .ROUTE .STK-MED ONE Stop: 03/26/21 11:02 Insulin Aspart (Insulin Aspart 100 Units/Ml 3 Ml Pen) 0 unit SUBCUT Q6H [facility]; Protocol Last Admin: 03/27/21 17:41 Dose: 8 units Documented by: Insulin Glargine (Insulin Glargine,Human Rec. Analog 100 Units/Ml 3 Ml Pen) 18 units SUBCUT BEDTIME [facility] Last Admin: 03/26/21 20:52 Dose: 18 units Documented by: Insulin Glargine (Insulin Glargine,Human Rec. Analog 100 Units/Ml 3 Ml Pen) 18 units SUBCUT NOW ONE Stop: 03/25/21 23:31 Last Admin: 03/26/21 00:10 Dose: 18 units Documented by: Insulin Glargine (Insulin Glargine,Human Rec. Analog 100 Units/Ml 3 Ml Pen) 22 units SUBCUT BEDTIME [facility] Ketamine HCl (Ketamine 500 Mg/10 Ml Mdv) Confirm Administered Dose 500 mg .ROUTE .STK-MED ONE Stop: 03/26/21 11:15 Ketorolac Tromethamine (Ketorolac 30 Mg/Ml Sdv) Confirm Administered Dose 30 mg .ROUTE .STK-MED ONE Stop: 03/26/21 11:17 Lidocaine (Lidocaine 2% 5 Ml Sdv) Confirm Administered Dose 5 ml .ROUTE .STK-MED ONE Stop: 03/26/21 11:17 Metoclopramide HCl (Metoclopramide 10 Mg/2 Ml Sdv) 10 mg IVPUSH ONETIME PRN PRN Reason: Nausea/Vomiting Morphine Sulfate (Morphine 2 Mg/Ml Syringe) 2 mg IVPUSH Q10M PRN PRN Reason: Pain (severe 7-10) Naloxone HCl (Naloxone 0.4 Mg/Ml Syringe) 0.1 mg IVPUSH ASDIRECTED PRN PRN Reason: Respiratory Depression Octyl Cyanoacrylate (Octyl 2-Cyanoacrylate 1 Tube) Confirm Administered Dose 1 applic .ROUTE .STK-MED ONE Stop: 03/26/21 14:25 Ondansetron HCl (Ondansetron 4 Mg/2 Ml Sdv) 4 mg IVPUSH ONETIME PRN PRN Reason: Nausea/Vomiting Propofol (Propofol 200 Mg/20 Ml Sdv) Confirm Administered Dose 200 mg .ROUTE .STK-MED ONE Stop: 03/26/21 11:15 Rocuronium Eucha (Rocuronium Eucha 50 Mg/5 Ml Syringe) Confirm Administered Dose 50 mg .ROUTE .STK-MED ONE Stop: 03/26/21 11:17 Sugammadex Sodium (Sugammadex Sodium 200 Mg/2 Ml Vial) Confirm Administered Dose 200 mg .ROUTE .STK-MED ONE Stop: 03/26/21 11:17 - Exam Urinary Catheter Total Time: 0Days 20Hours General: Alert, Oriented Neck: Supple Lungs: Clear to Auscultation, Normal Respiratory Effort Cardiovascular: Regular Rate, Regular Rhythm GI/Abdominal Exam: Soft, Non-Tender, No Distention Extremities: Pedal Edema (+1) - Patient Data Lab Results Last 24 hrs: Laboratory Results - last 24 hr 03/27/21 03/27/21 03/27/21 Range/Units 12:27 13:36 16:23 WBC (4.0-11.0) K/uL RBC (4.50-5.90) M/uL Hgb (13.0-17.0) g/dL Hct (38.0-50.0) % MCV (80.0-98.0) fL MCH (27.0-32.0) pg MCHC (31.0-37.0) g/dL RDW Std Deviation (28.0-62.0) fl RDW Coeff of Mariah (11.0-15.0) % Plt Count (150-400) K/uL MPV (7.40-12.00) fL Neut % (Auto) (48.0-80.0) % Lymph % (Auto) (16.0-40.0) % Bay % (Auto) (0.0-15.0) % Eos % (Auto) (0.0-7.0) % Baso % (Auto) (0.0-1.5) % Neut # (Auto) (1.4-5.7) K/uL Lymph # (Auto) (0.6-2.4) K/uL Bay # (Auto) (0.0-0.8) K/uL Eos # (Auto) (0.0-0.7) K/uL Baso # (Auto) (0.0-0.1) K/uL Nucleated RBC % /100WBC Nucleated RBCs # K/uL Sodium (136-148) mmol/L Potassium (3.5-5.1) mmol/L Chloride (98-107) mmol/L Carbon Dioxide (21.0-32.0) mmol/L BUN (7.0-18.0) mg/dL Creatinine (0.8-1.3) mg/dL Est Cr Clr Drug Dosing mL/min Estimated GFR (MDRD) ml/min Glucose (74-106) mg/dL POC Glucose 433 H* 476 H* 389 H (70-99) mg/dL Calcium (8.5-10.1) mg/dL Total Bilirubin (0.2-1.0) mg/dL AST (15-37) IU/L ALT (14-63) IU/L Alkaline Phosphatase (46-116) U/L Total Protein (6.4-8.2) g/dL Albumin (3.4-5.0) g/dL Globulin (2.6-4.0) g/dL Albumin/Globulin Ratio (0.9-1.6) 03/27/21 03/27/21 03/28/21 Range/Units 17:38 20:12 00:04 WBC (4.0-11.0) K/uL RBC (4.50-5.90) M/uL Hgb (13.0-17.0) g/dL Hct (38.0-50.0) % MCV (80.0-98.0) fL MCH (27.0-32.0) pg MCHC (31.0-37.0) g/dL RDW Std Deviation (28.0-62.0) fl RDW Coeff of Mariah (11.0-15.0) % Plt Count (150-400) K/uL MPV (7.40-12.00) fL Neut % (Auto) (48.0-80.0) % Lymph % (Auto) (16.0-40.0) % Bay % (Auto) (0.0-15.0) % Eos % (Auto) (0.0-7.0) % Baso % (Auto) (0.0-1.5) % Neut # (Auto) (1.4-5.7) K/uL Lymph # (Auto) (0.6-2.4) K/uL Bay # (Auto) (0.0-0.8) K/uL Eos # (Auto) (0.0-0.7) K/uL Baso # (Auto) (0.0-0.1) K/uL Nucleated RBC % /100WBC Nucleated RBCs # K/uL Sodium (136-148) mmol/L Potassium (3.5-5.1) mmol/L Chloride (98-107) mmol/L Carbon Dioxide (21.0-32.0) mmol/L BUN (7.0-18.0) mg/dL Creatinine (0.8-1.3) mg/dL Est Cr Clr Drug Dosing mL/min Estimated GFR (MDRD) ml/min Glucose (74-106) mg/dL POC Glucose 310 H 223 H 157 H (70-99) mg/dL Calcium (8.5-10.1) mg/dL Total Bilirubin (0.2-1.0) mg/dL AST (15-37) IU/L ALT (14-63) IU/L Alkaline Phosphatase (46-116) U/L Total Protein (6.4-8.2) g/dL Albumin (3.4-5.0) g/dL Globulin (2.6-4.0) g/dL Albumin/Globulin Ratio (0.9-1.6) 03/28/21 03/28/21 03/28/21 Range/Units 03:36 05:11 05:11 WBC 12.16 H (4.0-11.0) K/uL RBC 4.28 L (4.50-5.90) M/uL Hgb 13.0 (13.0-17.0) g/dL Hct 36.8 L (38.0-50.0) % MCV 86.0 (80.0-98.0) fL MCH 30.4 (27.0-32.0) pg MCHC 35.3 (31.0-37.0) g/dL RDW Std Deviation 45.0 (28.0-62.0) fl RDW Coeff of Mariah 14 (11.0-15.0) % Plt Count 177 (150-400) K/uL MPV 11.60 (7.40-12.00) fL Neut % (Auto) 82.9 H (48.0-80.0) % Lymph % (Auto) 5.7 L (16.0-40.0) % Bay % (Auto) 10.2 (0.0-15.0) % Eos % (Auto) 1.1 (0.0-7.0) % Baso % (Auto) 0.1 (0.0-1.5) % Neut # (Auto) 10.1 H (1.4-5.7) K/uL Lymph # (Auto) 0.7 (0.6-2.4) K/uL Bay # (Auto) 1.2 H (0.0-0.8) K/uL Eos # (Auto) 0.1 (0.0-0.7) K/uL Baso # (Auto) 0.0 (0.0-0.1) K/uL Nucleated RBC % 0.0 /100WBC Nucleated RBCs # 0 K/uL Sodium 131 L (136-148) mmol/L Potassium 3.5 (3.5-5.1) mmol/L Chloride 94 L (98-107) mmol/L Carbon Dioxide 25.4 (21.0-32.0) mmol/L BUN 48 H (7.0-18.0) mg/dL Creatinine 2.4 H (0.8-1.3) mg/dL Est Cr Clr Drug Dosing 30.94 mL/min Estimated GFR (MDRD) 27.0 ml/min Glucose 121 H (74-106) mg/dL POC Glucose 104 H (70-99) mg/dL Calcium 8.2 L (8.5-10.1) mg/dL Total Bilirubin 0.4 (0.2-1.0) mg/dL AST 25 (15-37) IU/L ALT 42 (14-63) IU/L Alkaline Phosphatase 112 (46-116) U/L Total Protein 6.0 L (6.4-8.2) g/dL Albumin 1.6 L (3.4-5.0) g/dL Globulin 4.4 H (2.6-4.0) g/dL Albumin/Globulin Ratio 0.4 L (0.9-1.6) 03/28/21 Range/Units 08:11 WBC (4.0-11.0) K/uL RBC (4.50-5.90) M/uL Hgb (13.0-17.0) g/dL Hct (38.0-50.0) % MCV (80.0-98.0) fL MCH (27.0-32.0) pg MCHC (31.0-37.0) g/dL RDW Std Deviation (28.0-62.0) fl RDW Coeff of Mariah (11.0-15.0) % Plt Count (150-400) K/uL MPV (7.40-12.00) fL Neut % (Auto) (48.0-80.0) % Lymph % (Auto) (16.0-40.0) % Bay % (Auto) (0.0-15.0) % Eos % (Auto) (0.0-7.0) % Baso % (Auto) (0.0-1.5) % Neut # (Auto) (1.4-5.7) K/uL Lymph # (Auto) (0.6-2.4) K/uL Bay # (Auto) (0.0-0.8) K/uL Eos # (Auto) (0.0-0.7) K/uL Baso # (Auto) (0.0-0.1) K/uL Nucleated RBC % /100WBC Nucleated RBCs # K/uL Sodium (136-148) mmol/L Potassium (3.5-5.1) mmol/L Chloride (98-107) mmol/L Carbon Dioxide (21.0-32.0) mmol/L BUN (7.0-18.0) mg/dL Creatinine (0.8-1.3) mg/dL Est Cr Clr Drug Dosing mL/min Estimated GFR (MDRD) ml/min Glucose (74-106) mg/dL POC Glucose 151 H (70-99) mg/dL Calcium (8.5-10.1) mg/dL Total Bilirubin (0.2-1.0) mg/dL AST (15-37) IU/L ALT (14-63) IU/L Alkaline Phosphatase (46-116) U/L Total Protein (6.4-8.2) g/dL Albumin (3.4-5.0) g/dL Globulin (2.6-4.0) g/dL Albumin/Globulin Ratio (0.9-1.6) Result Diagrams: 03/28/21 05:11 03/28/21 05:11 Jacques Results Last 24 hrs: Microbiology 03/26/21 14:42 Aerobic Culture - Preliminary Gallbladder Fluid - Bile Gram Negative Rods Gram Stain - Final 03/25/21 18:27 Aerobic Blood Culture - Preliminary Blood - Venous - Lab Draw NO GROWTH AFTER 2 DAYS Anaerobic Blood Culture - Preliminary NO GROWTH AFTER 2 DAYS 03/25/21 18:07 Aerobic Blood Culture - Preliminary Blood - Venous NO GROWTH AFTER 2 DAYS Anaerobic Blood Culture - Preliminary NO GROWTH AFTER 2 DAYS Sepsis Event Note - Evaluation Sepsis Screening Result: No Definite Risk - Focused Exam Vital Signs: Vital Signs Temp Pulse Resp BP BP Pulse Ox 03/28/21 08:23 139/84 03/28/21 08:18 36.2 C 84 20 139/84 91 L 03/28/21 03:12 36.3 C 84 18 140/77 94 L 03/28/21 00:00 36.2 C 83 18 137/68 92 L - Problem List Review Problem List Initiated/Reviewed/Updated: Yes - My Orders Last 24 Hours: My Active Orders 03/27/21 14:00 Calcium Carbonate [Tums] 1,000 mg PO TID PRN 03/27/21 19:53 Communication Order [RC] ROUTINE 03/27/21 19:58 Communication Order [RC] ROUTINE 03/27/21 20:00 Blood Glucose Check, Bedside [RC] Q4HR 03/28/21 11:00 CREATININE,URINE RAND [URCHEM] Routine SODIUM,URINE RANDOM [URCHEM] Routine 03/28/21 11:45 Lactated Ringers [Ringers, Lactated] 1,000 ml IV ASDIRECTED Levofloxacin/Dextrose 5%-Water [Levaquin in D5W 750 MG/150 ML] 750 mg Premix Bag 1 bag IV Q48H Pantoprazole [ProTONIX IV] 40 mg Sodium Chloride 0.9% [Normal Saline] 10 ml IV DAILY 03/28/21 14:00 metroNIDAZOLE/Normal Saline [Flagyl in NS 500 MG/100 ML] 500 mg Premix Bag 1 bag IV QID - Plan Plan:: 71 yo male admitted for acute cholecystitis Acute cholecystitis: Dr. Schwartz has been consulted, s/p cholecystectomy Hypoxia: likely 2/2 atelectasis, will encourage incentive spirometry, CXR shows atelectasis, no increases in pulmonary vasculature, will continue to monitor w hile receiving fluids acute on CKD: Creatinine 2.4 holding ramipril and diuretic, will continue hyd ration with IV fluids as patient likely 3rd spacing in abdomen from recent surgery. Hypertension: continue amlodipine. will replace zosyn with less nephrotoxic antibiotics of Flagyl and Levaquin DM: patient uses insulin pump at home, restart his insulin pump by himself and wishes to continue, instructed him on the need to inform nurses prior to giving himself boluses, on a basal rate of one unit an hour. will continue accuchecks frequently. DVT ppx: heparin.
[2021-03-28] MEDS: Levofloxacin/Dextrose 5%-Water 750 MG in Premix Bag 1 BAG IV SCH (12:15)
[2021-03-28] MEDS: metroNIDAZOLE/Normal Saline 500 MG in Premix Bag 1 BAG IV SCH ×2 (14:09→18:27)
[2021-03-28] MEDS: Lactated Ringers 1,000 ML IV SCH (14:09)
[2021-03-28] MEDS: Calcium Carbonate 500 MG Tab.Chew PO PRN (18:46)
[2021-03-29] MEDS: Lactated Ringers 1,000 ML IV SCH (04:14)
[2021-03-29] MEDS: metroNIDAZOLE/Normal Saline 500 MG in Premix Bag 1 BAG IV SCH ×6 (06:40→23:37)
[2021-03-29] MEDS: amLODIPine 5 MG Tab PO SCH (08:16)
[2021-03-29] MEDS: Pantoprazole 40 MG in Sodium Chloride 0.9% 10 ML IV SCH (08:17)
[2021-03-29] MEDS: Heparin Sodium 5,000 Units/ML Vial SUBCUT SCH ×4 (08:19→23:38)
[2021-03-29 10:28] LABS: CARBON DIOXIDE,CO2 25.4 mmol/L (21.0-32.0); POTASSIUM,K 4.1 mmol/L (3.5-5.1)
--- NOTE | 2021-03-29 11:16 | PN ---
SUBJECTIVE: The patient is sitting comfortably in his chair again today. He says he feels good. He has been tolerating a diet, but again says he will get some heartburn at night. He says he continues to pass flatus with no bowel movement. He has been up and walking quite a bit he says. He feels good and is questioning about going home. OBJECTIVE: VITAL SIGNS: Temperature is 97.7, pulse is 79, blood pressure is 157/83, saturating 94% on 1.5 L oxygen. ABDOMEN: Soft and nondistended. Minimal incisional tenderness. ARAM had some serosanguineous fluid and does not appear bilious. In the MAR, looks like 40 mL out in the last 24 hours, although nurse report she just need to empty 80 ml for a total of 120. Incisions are still dressed. LABORATORY DATA: Labs are still pending. ASSESSMENT AND PLAN: The patient is a pleasant 71-year-old gentleman, postop day 3 from subtotal laparoscopic cholecystectomy for a gangrenous gallbladder. The patient is doing well. He is tolerating a diet. He is up and ambulating. He is passing flatus. ARAM has been nonbilious output. We are still waiting on labs today. The patient should continue current course. I did discuss with the Medicine team. I did answer all the patient's questions. KIRTI BILLS /[id number] MTDD
--- NOTE | 2021-03-29 12:22 | PCM.PN ---
- General Info Date of Service: 03/29/21 Admission Dx/Problem (Free Text): Acute cholecystitis Subjective Update: Patient seen at bedside, patient on chair, no acute concern, no fever chills rach sea vomiting, tolerating diet well, passing gas, Functional Status: Reports: Tolerating Diet, Ambulating, Urinating, New Symptoms, Incentive Spirometry - Review of Systems General: Denies: Fever, Weakness Pulmonary: Denies: Shortness of Breath, Pleuritic Chest Pain, Cough Cardiovascular: Reports: Edema. Denies: Chest Pain, Palpitations, Dyspnea on Exertion, Lightheadedness Gastrointestinal: Reports: Flatus. Denies: Abdominal Pain, Constipation, Decreased Appetite, Diarrhea, Nausea, Vomiting Genitourinary: Denies: Dysuria, Frequency, Burning Musculoskeletal: Denies: Neck Pain, Shoulder Pain, Arm Pain Neurological: Denies: Confusion, Dizziness, Headache - Patient Data Vitals - Most Recent: Last Vital Signs Temp 36.5 C 03/29/21 08:12 Pulse 79 03/29/21 08:12 Resp 16 03/29/21 08:12 BP 157/83 H 03/29/21 08:16 Pulse Ox 94 L 03/29/21 08:15 Weight - Most Recent: 107.728 kg I&O - Last 24 Hours: Intake & Output 03/28/21 03/29/21 03/29/21 22:59 06:59 14:59 Intake Total 1360 650 Output Total 660 900 Balance 700 -250 Lab Results Last 24 Hours: Laboratory Results - last 24 hr 03/28/21 03/28/21 03/29/21 Range/Units 16:17 20:15 00:25 WBC (4.0-11.0) K/uL RBC (4.50-5.90) M/uL Hgb (13.0-17.0) g/dL Hct (38.0-50.0) % MCV (80.0-98.0) fL MCH (27.0-32.0) pg MCHC (31.0-37.0) g/dL RDW Std Deviation (28.0-62.0) fl RDW Coeff of Mariah (11.0-15.0) % Plt Count (150-400) K/uL MPV (7.40-12.00) fL Neut % (Auto) (48.0-80.0) % Lymph % (Auto) (16.0-40.0) % [place] % (Auto) (0.0-15.0) % Eos % (Auto) (0.0-7.0) % Baso % (Auto) (0.0-1.5) % Neut # (Auto) (1.4-5.7) K/uL Lymph # (Auto) (0.6-2.4) K/uL [place] # (Auto) (0.0-0.8) K/uL Eos # (Auto) (0.0-0.7) K/uL Baso # (Auto) (0.0-0.1) K/uL Nucleated RBC % /100WBC Nucleated RBCs # K/uL Sodium (136-148) mmol/L Potassium (3.5-5.1) mmol/L Chloride (98-107) mmol/L Carbon Dioxide (21.0-32.0) mmol/L BUN (7.0-18.0) mg/dL Creatinine (0.8-1.3) mg/dL Est Cr Clr Drug Dosing mL/min Estimated GFR (MDRD) ml/min Glucose (74-106) mg/dL POC Glucose 193 H 174 H 188 H (70-99) mg/dL Calcium (8.5-10.1) mg/dL Phosphorus (2.6-4.7) mg/dL Magnesium (1.8-2.4) mg/dL 03/29/21 03/29/21 03/29/21 Range/Units 04:05 08:48 10:00 WBC 11.01 H (4.0-11.0) K/uL RBC 4.17 L (4.50-5.90) M/uL Hgb 12.7 L (13.0-17.0) g/dL Hct 35.7 L (38.0-50.0) % MCV 85.6 (80.0-98.0) fL MCH 30.5 (27.0-32.0) pg MCHC 35.6 (31.0-37.0) g/dL RDW Std Deviation 44.1 (28.0-62.0) fl RDW Coeff of Mariah 14 (11.0-15.0) % Plt Count 221 (150-400) K/uL MPV 11.00 (7.40-12.00) fL Neut % (Auto) 79.2 (48.0-80.0) % Lymph % (Auto) 7.1 L (16.0-40.0) % [place] % (Auto) 12.5 (0.0-15.0) % Eos % (Auto) 0.9 (0.0-7.0) % Baso % (Auto) 0.3 (0.0-1.5) % Neut # (Auto) 8.7 H (1.4-5.7) K/uL Lymph # (Auto) 0.8 (0.6-2.4) K/uL [place] # (Auto) 1.4 H (0.0-0.8) K/uL Eos # (Auto) 0.1 (0.0-0.7) K/uL Baso # (Auto) 0.0 (0.0-0.1) K/uL Nucleated RBC % 0.0 /100WBC Nucleated RBCs # 0 K/uL Sodium (136-148) mmol/L Potassium (3.5-5.1) mmol/L Chloride (98-107) mmol/L Carbon Dioxide (21.0-32.0) mmol/L BUN (7.0-18.0) mg/dL Creatinine (0.8-1.3) mg/dL Est Cr Clr Drug Dosing mL/min Estimated GFR (MDRD) ml/min Glucose (74-106) mg/dL POC Glucose 154 H 155 H (70-99) mg/dL Calcium (8.5-10.1) mg/dL Phosphorus (2.6-4.7) mg/dL Magnesium (1.8-2.4) mg/dL 03/29/21 Range/Units 10:00 WBC (4.0-11.0) K/uL RBC (4.50-5.90) M/uL Hgb (13.0-17.0) g/dL Hct (38.0-50.0) % MCV (80.0-98.0) fL MCH (27.0-32.0) pg MCHC (31.0-37.0) g/dL RDW Std Deviation (28.0-62.0) fl RDW Coeff of Mariah (11.0-15.0) % Plt Count (150-400) K/uL MPV (7.40-12.00) fL Neut % (Auto) (48.0-80.0) % Lymph % (Auto) (16.0-40.0) % [place] % (Auto) (0.0-15.0) % Eos % (Auto) (0.0-7.0) % Baso % (Auto) (0.0-1.5) % Neut # (Auto) (1.4-5.7) K/uL Lymph # (Auto) (0.6-2.4) K/uL [place] # (Auto) (0.0-0.8) K/uL Eos # (Auto) (0.0-0.7) K/uL Baso # (Auto) (0.0-0.1) K/uL Nucleated RBC % /100WBC Nucleated RBCs # K/uL Sodium 130 L (136-148) mmol/L Potassium 4.1 (3.5-5.1) mmol/L Chloride 96 L (98-107) mmol/L Carbon Dioxide 25.4 (21.0-32.0) mmol/L BUN 49 H (7.0-18.0) mg/dL Creatinine 2.2 H (0.8-1.3) mg/dL Est Cr Clr Drug Dosing 33.75 mL/min Estimated GFR (MDRD) 29.8 ml/min Glucose 182 H (74-106) mg/dL POC Glucose (70-99) mg/dL Calcium 7.9 L (8.5-10.1) mg/dL Phosphorus 3.9 (2.6-4.7) mg/dL Magnesium 2.3 (1.8-2.4) mg/dL Jacques Results Last 24 Hours: Microbiology 03/26/21 14:42 Aerobic Culture - Preliminary Gallbladder Fluid - Bile Klebsiella Pneumonia Ss Pneumo Gram Stain - Final Anaerobic Culture - Preliminary 03/25/21 18:27 Aerobic Blood Culture - Preliminary Blood - Venous - Lab Draw NO GROWTH AFTER 3 DAYS Anaerobic Blood Culture - Preliminary NO GROWTH AFTER 3 DAYS 03/25/21 18:07 Aerobic Blood Culture - Preliminary Blood - Venous NO GROWTH AFTER 3 DAYS Anaerobic Blood Culture - Preliminary NO GROWTH AFTER 3 DAYS Med Orders - Current: Current Medications Hydrocodone Bitart/Acetaminophen (Acetaminophen/Hydrocodone 325-5 Mg Tab) 1 tab PO Q4H PRN PRN Reason: Pain (moderate 4-6) Last Admin: 03/28/21 16:28 Dose: 1 tab Documented by: Amlodipine Besylate (Amlodipine 5 Mg Tab) 10 mg PO DAILY [facility] Last Admin: 03/29/21 08:16 Dose: 10 mg Documented by: Calcium Carbonate/Glycine (Calcium Carbonate 500 Mg Tab.Chew) 1,000 mg PO TID PRN PRN Reason: Indigestion Last Admin: 03/28/21 18:46 Dose: 1,000 mg Documented by: Dextrose/Water (50% Dextrose In Water 50 Ml Syringe) 50 ml IVPUSH ASDIRECTED PRN PRN Reason: Hypoglycemia Glucagon (Glucagon,Human Recombinant 1 Mg Vial) 1 mg IM ASDIRECTED PRN PRN Reason: Hypoglycemia Heparin Sodium (Porcine) (Heparin Sodium 5,000 Units/Ml Vial) 5,000 units SUBCUT Q8H [facility] Last Admin: 03/29/21 08:19 Dose: 5,000 units Documented by: Hydromorphone HCl (Hydromorphone 1 Mg/Ml Syringe) 0.5 mg IVPUSH Q2H PRN PRN Reason: Pain (severe 7-10) Last Admin: 03/26/21 09:35 Dose: 0.5 mg Documented by: Pantoprazole Sodium 40 mg/ (Sodium Chloride) 10 mls @ 300 mls/hr IV DAILY [facility] Last Admin: 03/29/21 08:17 Dose: 300 mls/hr Documented by: Metronidazole 500 mg/ Premix 100 mls @ 100 mls/hr IV QID [facility] Last Admin: 03/29/21 11:40 Dose: 100 mls/hr Documented by: Levofloxacin/Dextrose 750 mg/ (Premix) 150 mls @ 100 mls/hr IV Q48H [facility] Last Admin: 03/28/21 12:15 Dose: 100 mls/hr Documented by: Ondansetron HCl (Ondansetron 4 Mg/2 Ml Sdv) 4 mg IVPUSH Q4H PRN PRN Reason: Nausea Ondansetron HCl (Ondansetron 4 Mg/2 Ml Sdv) 4 mg IVPUSH Q6H PRN PRN Reason: Nausea/Vomiting Discontinued Medications Albuterol (Albuterol 0.083% 2.5 Mg/3 Ml Neb Soln) 2.5 mg NEB ONETIME PRN PRN Reason: Wheezing Bupivacaine HCl (Bupivacaine 0.5% 30 Ml Sdv) Confirm Administered Dose 30 ml .ROUTE .STK-MED ONE Stop: 03/26/21 13:04 Droperidol (Droperidol 5 Mg/2 Ml Sdv) 0.625 mg IVPUSH ONETIME PRN PRN Reason: Nausea/Vomiting Fentanyl (Fentanyl 250 Mcg/5 Ml Sdv) Confirm Administered Dose 250 mcg .ROUTE .STK-MED ONE Stop: 03/26/21 11:15 Fentanyl (Fentanyl 100 Mcg/2 Ml Sdv) 50 mcg IVPUSH Q5M PRN PRN Reason: Pain (mild 1-3) Glycopyrrolate (Glycopyrrolate 0.2 Mg/Ml Sdv) Confirm Administered Dose 0.2 mg .ROUTE .STK-MED ONE Stop: 03/26/21 11:17 Hydromorphone HCl (Hydromorphone 2 Mg/Ml Syringe) 0.5 mg IVPUSH ONETIME ONE Stop: 03/25/21 18:10 Last Admin: 03/25/21 18:34 Dose: 0.5 mg Documented by: Hydromorphone HCl (Hydromorphone 2 Mg/Ml Syringe) 1 mg IVPUSH Q10M PRN PRN Reason: Pain (moderate 4-6) Hydromorphone HCl (Hydromorphone 2 Mg/Ml Syringe) Confirm Administered Dose 2 mg .ROUTE .STK-MED ONE Stop: 03/26/21 16:05 Piperacillin Sod/Tazobactam (Sod 4.5 gm/ Sodium Chloride) 100 mls @ 100 mls/hr IV ONETIME ONE Stop: 03/25/21 19:02 Last Admin: 03/25/21 18:35 Dose: 100 mls/hr Documented by: Lactated Ringer's (Ringers, Lactated) 1,000 mls @ 999 mls/hr IV .BOLUS ONE Stop: 03/25/21 19:08 Last Admin: 03/25/21 18:34 Dose: 999 mls/hr Documented by: Piperacillin Sod/Tazobactam (Sod 3.375 gm/ Sodium Chloride) 50 mls @ 100 mls/hr IV Q6H [facility] Last Admin: 03/28/21 08:20 Dose: 100 mls/hr Documented by: Acetaminophen (Ofirmev 1000 Mg/100 Ml) Confirm Administered Dose 100 mls @ as directed .ROUTE .STK-MED ONE Stop: 03/26/21 13:38 Acetaminophen (Ofirmev 1000 Mg/100 Ml) Confirm Administered Dose 100 mls @ as directed .ROUTE .STK-MED ONE Stop: 03/26/21 13:38 Lactated Ringer's (Ringers, Lactated) 1,000 mls @ 125 mls/hr IV ASDIRECTED [facility] Last Admin: 03/27/21 10:59 Dose: 125 mls/hr Documented by: Lactated Ringer's (Ringers, Lactated) 1,000 mls @ 100 mls/hr IV ASDIRECTED [facility] Last Admin: 03/29/21 04:14 Dose: 100 mls/hr Documented by: Indocyanine Green (Indocyanine Green 25 Mg Sdv) Confirm Administered Dose 25 mg .ROUTE .STK-MED ONE Stop: 03/26/21 11:02 Insulin Aspart (Insulin Aspart 100 Units/Ml 3 Ml Pen) 0 unit SUBCUT Q6H [facility]; Protocol Last Admin: 03/27/21 17:41 Dose: 8 units Documented by: Insulin Glargine (Insulin Glargine,Human Rec. Analog 100 Units/Ml 3 Ml Pen) 18 units SUBCUT BEDTIME [facility] Last Admin: 03/26/21 20:52 Dose: 18 units Documented by: Insulin Glargine (Insulin Glargine,Human Rec. Analog 100 Units/Ml 3 Ml Pen) 18 units SUBCUT NOW ONE Stop: 03/25/21 23:31 Last Admin: 03/26/21 00:10 Dose: 18 units Documented by: Insulin Glargine (Insulin Glargine,Human Rec. Analog 100 Units/Ml 3 Ml Pen) 22 units SUBCUT BEDTIME [facility] Ketamine HCl (Ketamine 500 Mg/10 Ml Mdv) Confirm Administered Dose 500 mg .ROUTE .STK-MED ONE Stop: 03/26/21 11:15 Ketorolac Tromethamine (Ketorolac 30 Mg/Ml Sdv) Confirm Administered Dose 30 mg .ROUTE .STK-MED ONE Stop: 03/26/21 11:17 Lidocaine (Lidocaine 2% 5 Ml Sdv) Confirm Administered Dose 5 ml .ROUTE .STK-MED ONE Stop: 03/26/21 11:17 Metoclopramide HCl (Metoclopramide 10 Mg/2 Ml Sdv) 10 mg IVPUSH ONETIME PRN PRN Reason: Nausea/Vomiting Morphine Sulfate (Morphine 2 Mg/Ml Syringe) 2 mg IVPUSH Q10M PRN PRN Reason: Pain (severe 7-10) Naloxone HCl (Naloxone 0.4 Mg/Ml Syringe) 0.1 mg IVPUSH ASDIRECTED PRN PRN Reason: Respiratory Depression Octyl Cyanoacrylate (Octyl 2-Cyanoacrylate 1 Tube) Confirm Administered Dose 1 applic .ROUTE .STK-MED ONE Stop: 03/26/21 14:25 Ondansetron HCl (Ondansetron 4 Mg/2 Ml Sdv) 4 mg IVPUSH ONETIME PRN PRN Reason: Nausea/Vomiting Propofol (Propofol 200 Mg/20 Ml Sdv) Confirm Administered Dose 200 mg .ROUTE .STK-MED ONE Stop: 03/26/21 11:15 Rocuronium Jordan (Rocuronium Jordan 50 Mg/5 Ml Syringe) Confirm Administered Dose 50 mg .ROUTE .STK-MED ONE Stop: 03/26/21 11:17 Sugammadex Sodium (Sugammadex Sodium 200 Mg/2 Ml Vial) Confirm Administered Dose 200 mg .ROUTE .STK-MED ONE Stop: 03/26/21 11:17 - Exam Urinary Catheter Total Time: 0Days 20Hours General: Alert, Oriented Cardiovascular: Regular Rate, Regular Rhythm, No Murmurs GI/Abdominal Exam: Normal Bowel Sounds, Soft, Non-Tender Extremities: Normal Range of Motion, Non-Tender, Pedal Edema. No: Increased Warmth, Mottled, Pallor Wound/Incisions: Healing Well, No Drainage - Patient Data Lab Results Last 24 hrs: Laboratory Results - last 24 hr 03/28/21 03/28/21 03/29/21 Range/Units 16:17 20:15 00:25 WBC (4.0-11.0) K/uL RBC (4.50-5.90) M/uL Hgb (13.0-17.0) g/dL Hct (38.0-50.0) % MCV (80.0-98.0) fL MCH (27.0-32.0) pg MCHC (31.0-37.0) g/dL RDW Std Deviation (28.0-62.0) fl RDW Coeff of Mariah (11.0-15.0) % Plt Count (150-400) K/uL MPV (7.40-12.00) fL Neut % (Auto) (48.0-80.0) % Lymph % (Auto) (16.0-40.0) % [place] % (Auto) (0.0-15.0) % Eos % (Auto) (0.0-7.0) % Baso % (Auto) (0.0-1.5) % Neut # (Auto) (1.4-5.7) K/uL Lymph # (Auto) (0.6-2.4) K/uL [place] # (Auto) (0.0-0.8) K/uL Eos # (Auto) (0.0-0.7) K/uL Baso # (Auto) (0.0-0.1) K/uL Nucleated RBC % /100WBC Nucleated RBCs # K/uL Sodium (136-148) mmol/L Potassium (3.5-5.1) mmol/L Chloride (98-107) mmol/L Carbon Dioxide (21.0-32.0) mmol/L BUN (7.0-18.0) mg/dL Creatinine (0.8-1.3) mg/dL Est Cr Clr Drug Dosing mL/min Estimated GFR (MDRD) ml/min Glucose (74-106) mg/dL POC Glucose 193 H 174 H 188 H (70-99) mg/dL Calcium (8.5-10.1) mg/dL Phosphorus (2.6-4.7) mg/dL Magnesium (1.8-2.4) mg/dL 03/29/21 03/29/21 03/29/21 Range/Units 04:05 08:48 10:00 WBC 11.01 H (4.0-11.0) K/uL RBC 4.17 L (4.50-5.90) M/uL Hgb 12.7 L (13.0-17.0) g/dL Hct 35.7 L (38.0-50.0) % MCV 85.6 (80.0-98.0) fL MCH 30.5 (27.0-32.0) pg MCHC 35.6 (31.0-37.0) g/dL RDW Std Deviation 44.1 (28.0-62.0) fl RDW Coeff of Mariah 14 (11.0-15.0) % Plt Count 221 (150-400) K/uL MPV 11.00 (7.40-12.00) fL Neut % (Auto) 79.2 (48.0-80.0) % Lymph % (Auto) 7.1 L (16.0-40.0) % [place] % (Auto) 12.5 (0.0-15.0) % Eos % (Auto) 0.9 (0.0-7.0) % Baso % (Auto) 0.3 (0.0-1.5) % Neut # (Auto) 8.7 H (1.4-5.7) K/uL Lymph # (Auto) 0.8 (0.6-2.4) K/uL [place] # (Auto) 1.4 H (0.0-0.8) K/uL Eos # (Auto) 0.1 (0.0-0.7) K/uL Baso # (Auto) 0.0 (0.0-0.1) K/uL Nucleated RBC % 0.0 /100WBC Nucleated RBCs # 0 K/uL Sodium (136-148) mmol/L Potassium (3.5-5.1) mmol/L Chloride (98-107) mmol/L Carbon Dioxide (21.0-32.0) mmol/L BUN (7.0-18.0) mg/dL Creatinine (0.8-1.3) mg/dL Est Cr Clr Drug Dosing mL/min Estimated GFR (MDRD) ml/min Glucose (74-106) mg/dL POC Glucose 154 H 155 H (70-99) mg/dL Calcium (8.5-10.1) mg/dL Phosphorus (2.6-4.7) mg/dL Magnesium (1.8-2.4) mg/dL 03/29/21 Range/Units 10:00 WBC (4.0-11.0) K/uL RBC (4.50-5.90) M/uL Hgb (13.0-17.0) g/dL Hct (38.0-50.0) % MCV (80.0-98.0) fL MCH (27.0-32.0) pg MCHC (31.0-37.0) g/dL RDW Std Deviation (28.0-62.0) fl RDW Coeff of Mariah (11.0-15.0) % Plt Count (150-400) K/uL MPV (7.40-12.00) fL Neut % (Auto) (48.0-80.0) % Lymph % (Auto) (16.0-40.0) % [place] % (Auto) (0.0-15.0) % Eos % (Auto) (0.0-7.0) % Baso % (Auto) (0.0-1.5) % Neut # (Auto) (1.4-5.7) K/uL Lymph # (Auto) (0.6-2.4) K/uL [place] # (Auto) (0.0-0.8) K/uL Eos # (Auto) (0.0-0.7) K/uL Baso # (Auto) (0.0-0.1) K/uL Nucleated RBC % /100WBC Nucleated RBCs # K/uL Sodium 130 L (136-148) mmol/L Potassium 4.1 (3.5-5.1) mmol/L Chloride 96 L (98-107) mmol/L Carbon Dioxide 25.4 (21.0-32.0) mmol/L BUN 49 H (7.0-18.0) mg/dL Creatinine 2.2 H (0.8-1.3) mg/dL Est Cr Clr Drug Dosing 33.75 mL/min Estimated GFR (MDRD) 29.8 ml/min Glucose 182 H (74-106) mg/dL POC Glucose (70-99) mg/dL Calcium 7.9 L (8.5-10.1) mg/dL Phosphorus 3.9 (2.6-4.7) mg/dL Magnesium 2.3 (1.8-2.4) mg/dL Result Diagrams: 03/29/21 10:00 03/29/21 10:00 Jacques Results Last 24 hrs: Microbiology 03/26/21 14:42 Aerobic Culture - Preliminary Gallbladder Fluid - Bile Klebsiella Pneumonia Ss Pneumo Gram Stain - Final Anaerobic Culture - Preliminary 03/25/21 18:27 Aerobic Blood Culture - Preliminary Blood - Venous - Lab Draw NO GROWTH AFTER 3 DAYS Anaerobic Blood Culture - Preliminary NO GROWTH AFTER 3 DAYS 03/25/21 18:07 Aerobic Blood Culture - Preliminary Blood - Venous NO GROWTH AFTER 3 DAYS Anaerobic Blood Culture - Preliminary NO GROWTH AFTER 3 DAYS Sepsis Event Note - Evaluation Sepsis Screening Result: No Definite Risk - Focused Exam Vital Signs: Vital Signs Temp Pulse Resp BP BP Pulse Ox Pulse Ox 03/29/21 08:16 157/83 H 03/29/21 08:15 94 L 03/29/21 08:12 36.5 C 79 16 157/83 H 94 L 03/29/21 04:00 36.7 C 74 18 143/69 H 91 L - Problem List & Annotations (1) Gangrene of gallbladder in cholecystitis SNOMED Code(s): 870396114, 650526230 Code(s): K82.A1 - GANGRENE OF GALLBLADDER IN CHOLECYSTITIS Status: Acute Current Visit: Yes (2) Acute cholecystitis SNOMED Code(s): 58079911 Code(s): K81.0 - ACUTE CHOLECYSTITIS Status: Acute Current Visit: Yes (3) Diabetes SNOMED Code(s): 80696674 Code(s): E11.9 - TYPE 2 DIABETES MELLITUS WITHOUT COMPLICATIONS Status: Acute Current Visit: Yes (4) Ischemic stroke SNOMED Code(s): 486789011 Code(s): I63.9 - CEREBRAL INFARCTION, UNSPECIFIED Status: Acute Current Visit: No - Problem List Review Problem List Initiated/Reviewed/Updated: Yes - Plan Plan:: 71 yo male admitted for acute cholecystitis Acute cholecystitis: Surgery is on board, s/p subtotal cholecystectomy secondary to gangrenous cholecystitis Hypoxia: likely 2/2 atelectasis, oxygen requirement is improving, will encourage incentive spirometry, CXR shows atelectasis, no increases in pulmonary vasculature, will continue to monitor while receiving fluids acute on CKD: Creatinine is improving today, continue holding ramipril and diuretic, will hold IV fluids for now since patient is eating and drinking well, will reassess volume status later in the evening to see if fluids have been restarted, patient has bilateral pitting edema, recommended elevating the legs as well as Omar wraps to help with the edema Hypertension: continue amlodipine. will replace zosyn with less nephrotoxic antibiotics of Flagyl and Levaquin, blood cultures noted DM: patient uses insulin pump at home, restart his insulin pump by himself and wishes to continue, instructed him on the need to inform nurses prior to giving himself boluses, on a basal rate of one unit an hour. Patient has a continuous glucose monitoring device, will cut back on finger glucose testing DVT ppx: heparin.
[2021-03-29] MEDS: Acetaminophen/HYDROcodone 325-5 MG Tab PO PRN (20:16)
[2021-03-29] MEDS: Docusate Sodium 100 MG Cap PO PRN (20:16)
[2021-03-30 05:13] LABS: CARBON DIOXIDE,CO2 28.6 mmol/L (21.0-32.0); POTASSIUM,K 4.5 mmol/L (3.5-5.1)
[2021-03-30] MEDS: metroNIDAZOLE/Normal Saline 500 MG in Premix Bag 1 BAG IV SCH ×4 (06:17→23:12)
--- NOTE | 2021-03-30 07:04 | PN ---
SUBJECTIVE: The patient has no complaints this morning. He says he feels pretty good. He was progressed to a general diet yesterday and he has tolerated this well but did have some heartburn in the evening. The patient says he still passes flatus. He has been urinating with his Maldonado removed. He also has been up and walking the halls he says multiple times a day. Overall, he reports feeling pretty good. He is still requiring oxygen and has edema of his ankles. OBJECTIVE: GENERAL: The patient is lying comfortably in bed. He is alert and oriented, in no acute distress. VITAL SIGNS: Temperature is 97.2, pulse is 84, blood pressure is 139/84, saturating 91% on 4 L. ABDOMEN: Soft and minimal tenderness. ARAM had 70 mL out in the last 24 hours. Drain was stripped. It was mainly serous with some blood clots involved. LABORATORY DATA: White cell count is 12.16, hemoglobin is 13, platelet count is 137. Sodium 131, potassium 3.5, chloride 94, BUN is 48, creatinine 2.4, glucose is 151. ASSESSMENT AND PLAN: The patient is a pleasant 71-year-old gentleman who underwent laparoscopic subtotal cholecystectomy, for a gangrenous necrotic gallbladder. He is doing well. The patient is tolerating a diet and is passing flatus and his pain is well controlled. He might be slightly under resuscitated, he did have a jump in his hemoglobin along with BUN and creatinine. The patient again may be third spacing because of the necrotic gallbladder and surgery. I did discuss this again with the Medicine team. I also discussed with the patient. He will probably sequester fluid for a day or so more before he starts mobilizing it. All the patient's questions were answered. KIRTI BILLS /[id number] SRIKANTH
[2021-03-30] MEDS: Heparin Sodium 5,000 Units/ML Vial SUBCUT SCH ×3 (08:38→23:09)
[2021-03-30] MEDS: amLODIPine 5 MG Tab PO SCH (08:38)
[2021-03-30] MEDS: Pantoprazole 40 MG in Sodium Chloride 0.9% 10 ML IV SCH (09:41)
[2021-03-30] MEDS: Docusate Sodium 100 MG Cap PO PRN ×2 (10:20→23:09)
[2021-03-30] MEDS ORDERED: Polyethylene Glycol 3350 Powder 17 GM Packet PO ONE (10:24)
[2021-03-30] MEDS ORDERED: Lactated Ringers 500 ML IV ONE (10:29)
[2021-03-30] MEDS: Levofloxacin/Dextrose 5%-Water 750 MG in Premix Bag 1 BAG IV SCH (13:38)
--- NOTE | 2021-03-30 14:07 | PCM.PN ---
- General Info Date of Service: 03/30/21 Admission Dx/Problem (Free Text): Acute cholecystitis Subjective Update: Patient seen at bedside, patient on chair, no acute concern, no fever chills rach sea vomiting, tolerating diet well, passing gas, no bowel movement yet, ADOLFO drain output has increased. Functional Status: Reports: Pain Controlled. Denies: Tolerating Diet, Ambulating, Urinating - Review of Systems General: Denies: Fever, Weakness, Fatigue Pulmonary: Denies: Shortness of Breath, Pleuritic Chest Pain Cardiovascular: Denies: Chest Pain, Palpitations, Dyspnea on Exertion Gastrointestinal: Reports: Constipation. Denies: Abdominal Pain, Decreased Appetite, Diarrhea Genitourinary: Denies: Dysuria, Frequency, Burning Musculoskeletal: Denies: Neck Pain, Shoulder Pain, Arm Pain Skin: Denies: Cyanosis, Jaundice, Mottled, Pallor Neurological: Denies: Confusion, Dizziness, Headache Psychiatric: Denies: Confusion, Depression, Mood Lability - Patient Data Vitals - Most Recent: Last Vital Signs Temp 36.2 C 03/30/21 08:00 Pulse 71 03/30/21 12:00 Resp 18 03/30/21 12:00 BP 145/65 H 03/30/21 12:00 Pulse Ox 94 L 03/30/21 12:00 Weight - Most Recent: 107.728 kg I&O - Last 24 Hours: Intake & Output 03/29/21 03/30/21 03/30/21 22:59 06:59 14:59 Intake Total 1681 700 Output Total 1245 1050 Balance 436 -350 Lab Results Last 24 Hours: Laboratory Results - last 24 hr 03/30/21 03/30/21 03/30/21 Range/Units 04:50 04:50 08:34 WBC 11.25 H (4.0-11.0) K/uL RBC 3.83 L (4.50-5.90) M/uL Hgb 11.6 L (13.0-17.0) g/dL Hct 33.2 L (38.0-50.0) % MCV 86.7 (80.0-98.0) fL MCH 30.3 (27.0-32.0) pg MCHC 34.9 (31.0-37.0) g/dL RDW Std Deviation 44.9 (28.0-62.0) fl RDW Coeff of Mariah 14 (11.0-15.0) % Plt Count 276 (150-400) K/uL MPV 10.30 (7.40-12.00) fL Add Manual Diff YES Neutrophils % (Manual) 70 (48.0-80.0) % Band Neutrophils % 1 % Lymphocytes % (Manual) 14 L (16.0-40.0) % Monocytes % (Manual) 11 (0.0-15.0) % Metamyelocytes % 1 % Myelocytes % 3 % Nucleated RBC % 0.0 /100WBC Absolute Seg Neuts 7.9 H (1.4-5.7) Band Neutrophils # 0.1 Lymphocytes # (Manual) 1.6 (0.6-2.4) Monocytes # (Manual) 1.2 H (0.0-0.8) Absolute Metamyelocyte 0.1 Absolute Myelocytes 0.3 Nucleated RBCs # 0 K/uL Sodium 133 L (136-148) mmol/L Potassium 4.5 (3.5-5.1) mmol/L Chloride 98 (98-107) mmol/L Carbon Dioxide 28.6 (21.0-32.0) mmol/L BUN 53 H (7.0-18.0) mg/dL Creatinine 2.2 H (0.8-1.3) mg/dL Est Cr Clr Drug Dosing 33.75 mL/min Estimated GFR (MDRD) 29.8 ml/min Glucose 164 H (74-106) mg/dL POC Glucose 204 H (70-99) mg/dL Calcium 7.9 L (8.5-10.1) mg/dL Total Bilirubin 0.3 (0.2-1.0) mg/dL AST 21 (15-37) IU/L ALT 27 (14-63) IU/L Alkaline Phosphatase 107 (46-116) U/L Total Protein 5.2 L (6.4-8.2) g/dL Albumin 1.5 L (3.4-5.0) g/dL Globulin 3.7 (2.6-4.0) g/dL Albumin/Globulin Ratio 0.4 L (0.9-1.6) Jacques Results Last 24 Hours: Microbiology 03/25/21 18:27 Aerobic Blood Culture - Preliminary Blood - Venous - Lab Draw NO GROWTH AFTER 4 DAYS Anaerobic Blood Culture - Preliminary NO GROWTH AFTER 4 DAYS 03/25/21 18:07 Aerobic Blood Culture - Preliminary Blood - Venous NO GROWTH AFTER 4 DAYS Anaerobic Blood Culture - Preliminary NO GROWTH AFTER 4 DAYS 03/26/21 14:42 Aerobic Culture - Preliminary Gallbladder Fluid - Bile Klebsiella Pneumonia Ss Pneumo Gram Stain - Final Anaerobic Culture - Preliminary Med Orders - Current: Current Medications Hydrocodone Bitart/Acetaminophen (Acetaminophen/Hydrocodone 325-5 Mg Tab) 1 tab PO Q4H PRN PRN Reason: Pain (moderate 4-6) Last Admin: 03/29/21 20:16 Dose: 1 tab Documented by: Amlodipine Besylate (Amlodipine 5 Mg Tab) 10 mg PO DAILY [facility] Last Admin: 03/30/21 08:38 Dose: 10 mg Documented by: Calcium Carbonate/Glycine (Calcium Carbonate 500 Mg Tab.Chew) 1,000 mg PO TID PRN PRN Reason: Indigestion Last Admin: 03/28/21 18:46 Dose: 1,000 mg Documented by: Dextrose/Water (50% Dextrose In Water 50 Ml Syringe) 50 ml IVPUSH ASDIRECTED PRN PRN Reason: Hypoglycemia Docusate Sodium (Docusate Sodium 100 Mg Cap) 100 mg PO Q12H PRN PRN Reason: Constipation Last Admin: 03/30/21 10:20 Dose: 100 mg Documented by: Glucagon (Glucagon,Human Recombinant 1 Mg Vial) 1 mg IM ASDIRECTED PRN PRN Reason: Hypoglycemia Heparin Sodium (Porcine) (Heparin Sodium 5,000 Units/Ml Vial) 5,000 units SUBCUT Q8H [facility] Last Admin: 03/30/21 08:38 Dose: 5,000 units Documented by: Pantoprazole Sodium 40 mg/ (Sodium Chloride) 10 mls @ 300 mls/hr IV DAILY [facility] Last Admin: 03/30/21 09:41 Dose: 300 mls/hr Documented by: Metronidazole 500 mg/ Premix 100 mls @ 100 mls/hr IV QID [facility] Last Admin: 03/30/21 12:17 Dose: 100 mls/hr Documented by: Levofloxacin/Dextrose 750 mg/ (Premix) 150 mls @ 100 mls/hr IV Q48H [facility] Last Admin: 03/30/21 13:38 Dose: 100 mls/hr Documented by: Ondansetron HCl (Ondansetron 4 Mg/2 Ml Sdv) 4 mg IVPUSH Q4H PRN PRN Reason: Nausea Ondansetron HCl (Ondansetron 4 Mg/2 Ml Sdv) 4 mg IVPUSH Q6H PRN PRN Reason: Nausea/Vomiting Discontinued Medications Albuterol (Albuterol 0.083% 2.5 Mg/3 Ml Neb Soln) 2.5 mg NEB ONETIME PRN PRN Reason: Wheezing Bupivacaine HCl (Bupivacaine 0.5% 30 Ml Sdv) Confirm Administered Dose 30 ml .ROUTE .STK-MED ONE Stop: 03/26/21 13:04 Droperidol (Droperidol 5 Mg/2 Ml Sdv) 0.625 mg IVPUSH ONETIME PRN PRN Reason: Nausea/Vomiting Fentanyl (Fentanyl 250 Mcg/5 Ml Sdv) Confirm Administered Dose 250 mcg .ROUTE .STK-MED ONE Stop: 03/26/21 11:15 Fentanyl (Fentanyl 100 Mcg/2 Ml Sdv) 50 mcg IVPUSH Q5M PRN PRN Reason: Pain (mild 1-3) Glycopyrrolate (Glycopyrrolate 0.2 Mg/Ml Sdv) Confirm Administered Dose 0.2 mg .ROUTE .STMedopad-MED ONE Stop: 03/26/21 11:17 Hydromorphone HCl (Hydromorphone 2 Mg/Ml Syringe) 0.5 mg IVPUSH ONETIME ONE Stop: 03/25/21 18:10 Last Admin: 03/25/21 18:34 Dose: 0.5 mg Documented by: Hydromorphone HCl (Hydromorphone 1 Mg/Ml Syringe) 0.5 mg IVPUSH Q2H PRN PRN Reason: Pain (severe 7-10) Last Admin: 03/26/21 09:35 Dose: 0.5 mg Documented by: Hydromorphone HCl (Hydromorphone 2 Mg/Ml Syringe) 1 mg IVPUSH Q10M PRN PRN Reason: Pain (moderate 4-6) Hydromorphone HCl (Hydromorphone 2 Mg/Ml Syringe) Confirm Administered Dose 2 mg .ROUTE .STMedopad-MED ONE Stop: 03/26/21 16:05 Piperacillin Sod/Tazobactam (Sod 4.5 gm/ Sodium Chloride) 100 mls @ 100 mls/hr IV ONETIME ONE Stop: 03/25/21 19:02 Last Admin: 03/25/21 18:35 Dose: 100 mls/hr Documented by: Lactated Ringer's (Ringers, Lactated) 1,000 mls @ 999 mls/hr IV .BOLUS ONE Stop: 03/25/21 19:08 Last Admin: 03/25/21 18:34 Dose: 999 mls/hr Documented by: Piperacillin Sod/Tazobactam (Sod 3.375 gm/ Sodium Chloride) 50 mls @ 100 mls/hr IV Q6H [facility] Last Admin: 03/28/21 08:20 Dose: 100 mls/hr Documented by: Acetaminophen (Ofirmev 1000 Mg/100 Ml) Confirm Administered Dose 100 mls @ as directed .ROUTE .STK-MED ONE Stop: 03/26/21 13:38 Acetaminophen (Ofirmev 1000 Mg/100 Ml) Confirm Administered Dose 100 mls @ as directed .ROUTE .STK-MED ONE Stop: 03/26/21 13:38 Lactated Ringer's (Ringers, Lactated) 1,000 mls @ 125 mls/hr IV ASDIRECTED [facility] Last Admin: 03/27/21 10:59 Dose: 125 mls/hr Documented by: Lactated Ringer's (Ringers, Lactated) 1,000 mls @ 100 mls/hr IV ASDIRECTED [facility] Last Admin: 03/29/21 04:14 Dose: 100 mls/hr Documented by: Lactated Ringer's (Ringers, Lactated) 500 mls @ 999 mls/hr IV ONETIME ONE Stop: 03/30/21 10:59 Last Admin: 03/30/21 11:30 Dose: 999 mls/hr Documented by: Indocyanine Green (Indocyanine Green 25 Mg Sdv) Confirm Administered Dose 25 mg .ROUTE .STK-MED ONE Stop: 03/26/21 11:02 Insulin Aspart (Insulin Aspart 100 Units/Ml 3 Ml Pen) 0 unit SUBCUT Q6H [facility]; Protocol Last Admin: 03/27/21 17:41 Dose: 8 units Documented by: Insulin Glargine (Insulin Glargine,Human Rec. Analog 100 Units/Ml 3 Ml Pen) 18 units SUBCUT BEDTIME [facility] Last Admin: 03/26/21 20:52 Dose: 18 units Documented by: Insulin Glargine (Insulin Glargine,Human Rec. Analog 100 Units/Ml 3 Ml Pen) 18 units SUBCUT NOW ONE Stop: 03/25/21 23:31 Last Admin: 03/26/21 00:10 Dose: 18 units Documented by: Insulin Glargine (Insulin Glargine,Human Rec. Analog 100 Units/Ml 3 Ml Pen) 22 units SUBCUT BEDTIME [facility] Ketamine HCl (Ketamine 500 Mg/10 Ml Mdv) Confirm Administered Dose 500 mg .ROUTE .STK-MED ONE Stop: 03/26/21 11:15 Ketorolac Tromethamine (Ketorolac 30 Mg/Ml Sdv) Confirm Administered Dose 30 mg .ROUTE .STK-MED ONE Stop: 03/26/21 11:17 Lidocaine (Lidocaine 2% 5 Ml Sdv) Confirm Administered Dose 5 ml .ROUTE .STK-MED ONE Stop: 03/26/21 11:17 Metoclopramide HCl (Metoclopramide 10 Mg/2 Ml Sdv) 10 mg IVPUSH ONETIME PRN PRN Reason: Nausea/Vomiting Morphine Sulfate (Morphine 2 Mg/Ml Syringe) 2 mg IVPUSH Q10M PRN PRN Reason: Pain (severe 7-10) Naloxone HCl (Naloxone 0.4 Mg/Ml Syringe) 0.1 mg IVPUSH ASDIRECTED PRN PRN Reason: Respiratory Depression Octyl Cyanoacrylate (Octyl 2-Cyanoacrylate 1 Tube) Confirm Administered Dose 1 applic .ROUTE .STK-MED ONE Stop: 03/26/21 14:25 Ondansetron HCl (Ondansetron 4 Mg/2 Ml Sdv) 4 mg IVPUSH ONETIME PRN PRN Reason: Nausea/Vomiting Polyethylene Glycol (Polyethylene Glycol 3350 Powder 17 Gm Packet) 17 gm PO ONETIME ONE Stop: 03/30/21 10:25 Last Admin: 03/30/21 11:30 Dose: 17 gm Documented by: Propofol (Propofol 200 Mg/20 Ml Sdv) Confirm Administered Dose 200 mg .ROUTE .STK-MED ONE Stop: 03/26/21 11:15 Rocuronium [place] (Rocuronium [place] 50 Mg/5 Ml Syringe) Confirm Administered Dose 50 mg .ROUTE .STK-MED ONE Stop: 03/26/21 11:17 Sugammadex Sodium (Sugammadex Sodium 200 Mg/2 Ml Vial) Confirm Administered Dose 200 mg .ROUTE .STK-MED ONE Stop: 03/26/21 11:17 - Exam Urinary Catheter Total Time: 0Days 20Hours General: Alert, Oriented Lungs: Clear to Auscultation, Normal Respiratory Effort Cardiovascular: Regular Rate, Regular Rhythm GI/Abdominal Exam: Normal Bowel Sounds, Soft, Non-Tender Back Exam: Normal Inspection, Full Range of Motion Extremities: Normal Inspection, Normal Range of Motion - Patient Data Lab Results Last 24 hrs: Laboratory Results - last 24 hr 03/30/21 03/30/21 03/30/21 Range/Units 04:50 04:50 08:34 WBC 11.25 H (4.0-11.0) K/uL RBC 3.83 L (4.50-5.90) M/uL Hgb 11.6 L (13.0-17.0) g/dL Hct 33.2 L (38.0-50.0) % MCV 86.7 (80.0-98.0) fL MCH 30.3 (27.0-32.0) pg MCHC 34.9 (31.0-37.0) g/dL RDW Std Deviation 44.9 (28.0-62.0) fl RDW Coeff of Mariah 14 (11.0-15.0) % Plt Count 276 (150-400) K/uL MPV 10.30 (7.40-12.00) fL Add Manual Diff YES Neutrophils % (Manual) 70 (48.0-80.0) % Band Neutrophils % 1 % Lymphocytes % (Manual) 14 L (16.0-40.0) % Monocytes % (Manual) 11 (0.0-15.0) % Metamyelocytes % 1 % Myelocytes % 3 % Nucleated RBC % 0.0 /100WBC Absolute Seg Neuts 7.9 H (1.4-5.7) Band Neutrophils # 0.1 Lymphocytes # (Manual) 1.6 (0.6-2.4) Monocytes # (Manual) 1.2 H (0.0-0.8) Absolute Metamyelocyte 0.1 Absolute Myelocytes 0.3 Nucleated RBCs # 0 K/uL Sodium 133 L (136-148) mmol/L Potassium 4.5 (3.5-5.1) mmol/L Chloride 98 (98-107) mmol/L Carbon Dioxide 28.6 (21.0-32.0) mmol/L BUN 53 H (7.0-18.0) mg/dL Creatinine 2.2 H (0.8-1.3) mg/dL Est Cr Clr Drug Dosing 33.75 mL/min Estimated GFR (MDRD) 29.8 ml/min Glucose 164 H (74-106) mg/dL POC Glucose 204 H (70-99) mg/dL Calcium 7.9 L (8.5-10.1) mg/dL Total Bilirubin 0.3 (0.2-1.0) mg/dL AST 21 (15-37) IU/L ALT 27 (14-63) IU/L Alkaline Phosphatase 107 (46-116) U/L Total Protein 5.2 L (6.4-8.2) g/dL Albumin 1.5 L (3.4-5.0) g/dL Globulin 3.7 (2.6-4.0) g/dL Albumin/Globulin Ratio 0.4 L (0.9-1.6) Result Diagrams: 03/30/21 04:50 03/30/21 04:50 Jacques Results Last 24 hrs: Microbiology 03/25/21 18:27 Aerobic Blood Culture - Preliminary Blood - Venous - Lab Draw NO GROWTH AFTER 4 DAYS Anaerobic Blood Culture - Preliminary NO GROWTH AFTER 4 DAYS 03/25/21 18:07 Aerobic Blood Culture - Preliminary Blood - Venous NO GROWTH AFTER 4 DAYS Anaerobic Blood Culture - Preliminary NO GROWTH AFTER 4 DAYS 03/26/21 14:42 Aerobic Culture - Preliminary Gallbladder Fluid - Bile Klebsiella Pneumonia Ss Pneumo Gram Stain - Final Anaerobic Culture - Preliminary Sepsis Event Note - Evaluation Sepsis Screening Result: No Definite Risk - Focused Exam Vital Signs: Vital Signs Temp Pulse Resp BP BP Pulse Ox Pulse Ox 03/30/21 12:00 71 18 145/65 H 94 L 03/30/21 08:38 139/110 H 03/30/21 08:00 36.2 C 82 18 139/75 92 L 92 L 03/30/21 04:46 81 116/77 03/30/21 04:00 36.8 C 79 16 171/80 H 92 L - Problem List & Annotations (1) Gangrene of gallbladder in cholecystitis SNOMED Code(s): 228432444, 669091111 Code(s): K82.A1 - GANGRENE OF GALLBLADDER IN CHOLECYSTITIS Status: Acute Current Visit: Yes (2) Acute cholecystitis SNOMED Code(s): 89390650 Code(s): K81.0 - ACUTE CHOLECYSTITIS Status: Acute Current Visit: Yes (3) Diabetes SNOMED Code(s): 78854573 Code(s): E11.9 - TYPE 2 DIABETES MELLITUS WITHOUT COMPLICATIONS Status: Acute Current Visit: Yes (4) Ischemic stroke SNOMED Code(s): 699239953 Code(s): I63.9 - CEREBRAL INFARCTION, UNSPECIFIED Status: Acute Current Visit: No - Problem List Review Problem List Initiated/Reviewed/Updated: Yes - My Orders Last 24 Hours: My Active Orders 03/29/21 18:16 Docusate Sodium [Colace] 100 mg PO Q12H PRN - Plan Plan:: 71 yo male admitted for acute cholecystitis Acute cholecystitis: Surgery is on board, s/p subtotal cholecystectomy secondary to gangrenous cholecystitis, increaded adolfo drianage today. per surgery likely benign but consider bile leak if no improvement by tomorrow, possible transfer for ERCP, HIDA scan if drainage doesnt get better. Hypoxia: resolved acute on CKD: Creatinine steady, continue holding ramipril and diuretic, will hold IV fluids for now since patient is eating and drinking well, give 500 ml bolus recommended elevating the legs as well as Omar wraps to help with the edema Hypertension: continue amlodipine. cont Flagyl and Levaquin, blood cultures noted DM: patient uses insulin pump at home, restart his insulin pump by himself and wishes to continue, instructed him on the need to inform nurses prior to giving himself boluses, on a basal rate of one unit an hour. Patient has a continuous glucose monitoring device, will cut back on finger glucose testing DVT ppx: heparin.
--- NOTE | 2021-03-30 15:06 | PN ---
SUBJECTIVE: The patient is resting comfortably in his hospital bed. The patient says he is feeling pretty good, although he does feel a little bit tired. He has been tolerating his diet, passing flatus. No bowel movement yet. The patient has been weaned off his oxygen. Yesterday, it was noted that his ARAM output increased and still increased today. Unfortunately, it looks like the output has become more of bilious looking with a light green tint to the serous fluid, but overall the patient says he is feeling pretty good. OBJECTIVE: GENERAL: The patient is lying comfortably in his bed. He is alert and oriented, in no acute distress. ABDOMEN: Soft and nondistended. Does have a ARAM in place. The patient did have 260 out yesterday, and output is now more of a bilious color. Incisions dressings were taken down. [place] are in place. Wounds are clean, dry, and intact. No signs of infection. LABORATORY DATA: White cell count is 11.25, hemoglobin is 11.6, and platelet count is 276. LFTs: Total bilirubin 0.3, AST is 21, ALT is 27, and alkaline phosphatase is 107. ASSESSMENT AND PLAN: This is a pleasant 71-year-old who is postop day 4 from subtotal laparoscopic cholecystectomy for a gangrenous gallbladder. The patient is doing well other than his ARAM output increased, and is a little more bilious. There is always a possibility that he is having leak from his gallbladder stump. I did discuss this again with the patient as I had in the previous days. I did go over with the patient that he may need a transfer for an ERCP. Unfortunately, we do not have the ability to do a HIDA scan at this facility. However, this increased fluid output could just be him mobilizing his interstitial fluids, and I have seen in the past where the output will start to increase after a day or so and then decrease. I did go over with the patient about transferring now or waiting a day. The patient would like to wait today and see if the drainage output improves. I did go over this with Hospitalist service. Did answer all the patient's questions. KIRTI / SANJU /[id number] SRIKANTH
[2021-03-30] MEDS: Acetaminophen/HYDROcodone 325-5 MG Tab PO PRN (23:09)
[2021-03-31] MEDS: metroNIDAZOLE/Normal Saline 500 MG in Premix Bag 1 BAG IV SCH ×3 (05:02→17:54)
[2021-03-31 06:36] LABS: CARBON DIOXIDE,CO2 26.4 mmol/L (21.0-32.0); POTASSIUM,K 4.2 mmol/L (3.5-5.1)
[2021-03-31] MEDS: Heparin Sodium 5,000 Units/ML Vial SUBCUT SCH ×2 (08:04→15:39)
[2021-03-31] MEDS: Pantoprazole 40 MG in Sodium Chloride 0.9% 10 ML IV SCH (08:05)
[2021-03-31] MEDS: amLODIPine 5 MG Tab PO SCH (08:06)
--- NOTE | 2021-03-31 14:02 | PCM.PN ---
- General Info Date of Service: 03/31/21 Admission Dx/Problem (Free Text): Acute cholecystitis Subjective Update: Patient seen at bedside,no acute concern, no fever chills nausea vomiting, lorene ating diet well, passing gas, had a few small bowel movements, ARAM drain output has improved does not look as much bilious today as it did yesterday Functional Status: Reports: Tolerating Diet, Ambulating, Urinating - Review of Systems General: Denies: Fever, Weakness, Fatigue Pulmonary: Denies: Shortness of Breath, Pleuritic Chest Pain Cardiovascular: Denies: Chest Pain, Palpitations Gastrointestinal: Denies: Abdominal Pain, Constipation, Decreased Appetite Genitourinary: Denies: Dysuria, Frequency, Burning Musculoskeletal: Denies: Neck Pain, Shoulder Pain, Arm Pain Skin: Denies: Cyanosis, Jaundice, Mottled Neurological: Denies: Confusion, Dizziness, Headache - Patient Data Vitals - Most Recent: Last Vital Signs Temp 36.2 C 03/31/21 12:00 Pulse 79 03/31/21 12:00 Resp 16 03/31/21 12:00 BP 145/65 H 03/31/21 12:00 Pulse Ox 94 L 03/31/21 12:00 Weight - Most Recent: 107.728 kg I&O - Last 24 Hours: Intake & Output 03/30/21 03/31/21 03/31/21 22:59 06:59 14:59 Intake Total 2630 500 Output Total 1265 1100 Balance 1365 -600 Lab Results Last 24 Hours: Laboratory Results - last 24 hr 03/31/21 03/31/21 03/31/21 Range/Units 05:43 05:43 08:06 WBC 13.73 H (4.0-11.0) K/uL RBC 3.94 L (4.50-5.90) M/uL Hgb 11.8 L (13.0-17.0) g/dL Hct 34.3 L (38.0-50.0) % MCV 87.1 (80.0-98.0) fL MCH 29.9 (27.0-32.0) pg MCHC 34.4 (31.0-37.0) g/dL RDW Std Deviation 44.7 (28.0-62.0) fl RDW Coeff of Mariah 14 (11.0-15.0) % Plt Count 354 (150-400) K/uL MPV 10.30 (7.40-12.00) fL Add Manual Diff YES Neutrophils % (Manual) 75 (48.0-80.0) % Band Neutrophils % 8 % Lymphocytes % (Manual) 11 L (16.0-40.0) % Monocytes % (Manual) 4 (0.0-15.0) % Myelocytes % 2 % Nucleated RBC % 0.0 /100WBC Absolute Seg Neuts 10.3 H (1.4-5.7) Band Neutrophils # 1.1 Lymphocytes # (Manual) 1.5 (0.6-2.4) Monocytes # (Manual) 0.5 (0.0-0.8) Absolute Myelocytes 0.3 Nucleated RBCs # 0 K/uL Sodium 135 L (136-148) mmol/L Potassium 4.2 (3.5-5.1) mmol/L Chloride 102 (98-107) mmol/L Carbon Dioxide 26.4 (21.0-32.0) mmol/L BUN 46 H (7.0-18.0) mg/dL Creatinine 1.7 H (0.8-1.3) mg/dL Est Cr Clr Drug Dosing 43.68 mL/min Estimated GFR (MDRD) 40.2 ml/min Glucose 173 H (74-106) mg/dL POC Glucose 178 H (70-99) mg/dL Calcium 7.8 L (8.5-10.1) mg/dL Phosphorus 4.4 (2.6-4.7) mg/dL Magnesium 2.3 (1.8-2.4) mg/dL Jacques Results Last 24 Hours: Microbiology 03/26/21 14:42 Aerobic Culture - Preliminary Gallbladder Fluid - Bile Klebsiella Pneumonia Ss Pneumo Gram Stain - Final Anaerobic Culture - Preliminary Anaerobic Gram Positive Alex 03/25/21 18:27 Aerobic Blood Culture - Final Blood - Venous - Lab Draw NO GROWTH AFTER 5 DAYS Anaerobic Blood Culture - Final NO GROWTH AFTER 5 DAYS 03/25/21 18:07 Aerobic Blood Culture - Final Blood - Venous NO GROWTH AFTER 5 DAYS Anaerobic Blood Culture - Final NO GROWTH AFTER 5 DAYS Med Orders - Current: Current Medications Hydrocodone Bitart/Acetaminophen (Acetaminophen/Hydrocodone 325-5 Mg Tab) 1 tab PO Q4H PRN PRN Reason: Pain (moderate 4-6) Last Admin: 03/30/21 23:09 Dose: 1 tab Documented by: Amlodipine Besylate (Amlodipine 5 Mg Tab) 10 mg PO DAILY [facility] Last Admin: 03/31/21 08:06 Dose: 10 mg Documented by: Calcium Carbonate/Glycine (Calcium Carbonate 500 Mg Tab.Chew) 1,000 mg PO TID PRN PRN Reason: Indigestion Last Admin: 03/28/21 18:46 Dose: 1,000 mg Documented by: Dextrose/Water (50% Dextrose In Water 50 Ml Syringe) 50 ml IVPUSH ASDIRECTED PRN PRN Reason: Hypoglycemia Docusate Sodium (Docusate Sodium 100 Mg Cap) 100 mg PO Q12H PRN PRN Reason: Constipation Last Admin: 03/30/21 23:09 Dose: 100 mg Documented by: Glucagon (Glucagon,Human Recombinant 1 Mg Vial) 1 mg IM ASDIRECTED PRN PRN Reason: Hypoglycemia Heparin Sodium (Porcine) (Heparin Sodium 5,000 Units/Ml Vial) 5,000 units SUBCUT Q8H [facility] Last Admin: 03/31/21 08:04 Dose: 5,000 units Documented by: Pantoprazole Sodium 40 mg/ (Sodium Chloride) 10 mls @ 300 mls/hr IV DAILY [facility] Last Admin: 03/31/21 08:05 Dose: 300 mls/hr Documented by: Metronidazole 500 mg/ Premix 100 mls @ 100 mls/hr IV QID [facility] Last Admin: 03/31/21 11:50 Dose: 100 mls/hr Documented by: Levofloxacin/Dextrose 750 mg/ (Premix) 150 mls @ 100 mls/hr IV Q48H [facility] Last Admin: 03/30/21 13:38 Dose: 100 mls/hr Documented by: Ondansetron HCl (Ondansetron 4 Mg/2 Ml Sdv) 4 mg IVPUSH Q4H PRN PRN Reason: Nausea Ondansetron HCl (Ondansetron 4 Mg/2 Ml Sdv) 4 mg IVPUSH Q6H PRN PRN Reason: Nausea/Vomiting Discontinued Medications Albuterol (Albuterol 0.083% 2.5 Mg/3 Ml Neb Soln) 2.5 mg NEB ONETIME PRN PRN Reason: Wheezing Bupivacaine HCl (Bupivacaine 0.5% 30 Ml Sdv) Confirm Administered Dose 30 ml .ROUTE .STK-MED ONE Stop: 03/26/21 13:04 Droperidol (Droperidol 5 Mg/2 Ml Sdv) 0.625 mg IVPUSH ONETIME PRN PRN Reason: Nausea/Vomiting Fentanyl (Fentanyl 250 Mcg/5 Ml Sdv) Confirm Administered Dose 250 mcg .ROUTE .STK-MED ONE Stop: 03/26/21 11:15 Fentanyl (Fentanyl 100 Mcg/2 Ml Sdv) 50 mcg IVPUSH Q5M PRN PRN Reason: Pain (mild 1-3) Glycopyrrolate (Glycopyrrolate 0.2 Mg/Ml Sdv) Confirm Administered Dose 0.2 mg .ROUTE .STK-MED ONE Stop: 03/26/21 11:17 Hydromorphone HCl (Hydromorphone 2 Mg/Ml Syringe) 0.5 mg IVPUSH ONETIME ONE Stop: 03/25/21 18:10 Last Admin: 03/25/21 18:34 Dose: 0.5 mg Documented by: Hydromorphone HCl (Hydromorphone 1 Mg/Ml Syringe) 0.5 mg IVPUSH Q2H PRN PRN Reason: Pain (severe 7-10) Last Admin: 03/26/21 09:35 Dose: 0.5 mg Documented by: Hydromorphone HCl (Hydromorphone 2 Mg/Ml Syringe) 1 mg IVPUSH Q10M PRN PRN Reason: Pain (moderate 4-6) Hydromorphone HCl (Hydromorphone 2 Mg/Ml Syringe) Confirm Administered Dose 2 mg .ROUTE .STK-MED ONE Stop: 03/26/21 16:05 Piperacillin Sod/Tazobactam (Sod 4.5 gm/ Sodium Chloride) 100 mls @ 100 mls/hr IV ONETIME ONE Stop: 03/25/21 19:02 Last Admin: 03/25/21 18:35 Dose: 100 mls/hr Documented by: Lactated Ringer's (Ringers, Lactated) 1,000 mls @ 999 mls/hr IV .BOLUS ONE Stop: 03/25/21 19:08 Last Admin: 03/25/21 18:34 Dose: 999 mls/hr Documented by: Piperacillin Sod/Tazobactam (Sod 3.375 gm/ Sodium Chloride) 50 mls @ 100 mls/hr IV Q6H [facility] Last Admin: 03/28/21 08:20 Dose: 100 mls/hr Documented by: Acetaminophen (Ofirmev 1000 Mg/100 Ml) Confirm Administered Dose 100 mls @ as directed .ROUTE .STK-MED ONE Stop: 03/26/21 13:38 Acetaminophen (Ofirmev 1000 Mg/100 Ml) Confirm Administered Dose 100 mls @ as directed .ROUTE .STK-MED ONE Stop: 03/26/21 13:38 Lactated Ringer's (Ringers, Lactated) 1,000 mls @ 125 mls/hr IV ASDIRECTED [facility] Last Admin: 03/27/21 10:59 Dose: 125 mls/hr Documented by: Lactated Ringer's (Ringers, Lactated) 1,000 mls @ 100 mls/hr IV ASDIRECTED [facility] Last Admin: 03/29/21 04:14 Dose: 100 mls/hr Documented by: Lactated Ringer's (Ringers, Lactated) 500 mls @ 999 mls/hr IV ONETIME ONE Stop: 03/30/21 10:59 Last Admin: 03/30/21 11:30 Dose: 999 mls/hr Documented by: Indocyanine Green (Indocyanine Green 25 Mg Sdv) Confirm Administered Dose 25 mg .ROUTE .STK-MED ONE Stop: 03/26/21 11:02 Insulin Aspart (Insulin Aspart 100 Units/Ml 3 Ml Pen) 0 unit SUBCUT Q6H [facility]; Protocol Last Admin: 03/27/21 17:41 Dose: 8 units Documented by: Insulin Glargine (Insulin Glargine,Human Rec. Analog 100 Units/Ml 3 Ml Pen) 18 units SUBCUT BEDTIME [facility] Last Admin: 03/26/21 20:52 Dose: 18 units Documented by: Insulin Glargine (Insulin Glargine,Human Rec. Analog 100 Units/Ml 3 Ml Pen) 18 units SUBCUT NOW ONE Stop: 03/25/21 23:31 Last Admin: 03/26/21 00:10 Dose: 18 units Documented by: Insulin Glargine (Insulin Glargine,Human Rec. Analog 100 Units/Ml 3 Ml Pen) 22 units SUBCUT BEDTIME [facility] Ketamine HCl (Ketamine 500 Mg/10 Ml Mdv) Confirm Administered Dose 500 mg .ROUTE .STK-MED ONE Stop: 03/26/21 11:15 Ketorolac Tromethamine (Ketorolac 30 Mg/Ml Sdv) Confirm Administered Dose 30 mg .ROUTE .STK-MED ONE Stop: 03/26/21 11:17 Lidocaine (Lidocaine 2% 5 Ml Sdv) Confirm Administered Dose 5 ml .ROUTE .STK-MED ONE Stop: 03/26/21 11:17 Metoclopramide HCl (Metoclopramide 10 Mg/2 Ml Sdv) 10 mg IVPUSH ONETIME PRN PRN Reason: Nausea/Vomiting Morphine Sulfate (Morphine 2 Mg/Ml Syringe) 2 mg IVPUSH Q10M PRN PRN Reason: Pain (severe 7-10) Naloxone HCl (Naloxone 0.4 Mg/Ml Syringe) 0.1 mg IVPUSH ASDIRECTED PRN PRN Reason: Respiratory Depression Octyl Cyanoacrylate (Octyl 2-Cyanoacrylate 1 Tube) Confirm Administered Dose 1 applic .ROUTE .STK-MED ONE Stop: 03/26/21 14:25 Ondansetron HCl (Ondansetron 4 Mg/2 Ml Sdv) 4 mg IVPUSH ONETIME PRN PRN Reason: Nausea/Vomiting Polyethylene Glycol (Polyethylene Glycol 3350 Powder 17 Gm Packet) 17 gm PO ONETIME ONE Stop: 03/30/21 10:25 Last Admin: 03/30/21 11:30 Dose: 17 gm Documented by: Propofol (Propofol 200 Mg/20 Ml Sdv) Confirm Administered Dose 200 mg .ROUTE .STK-MED ONE Stop: 03/26/21 11:15 Rocuronium Goltry (Rocuronium Goltry 50 Mg/5 Ml Syringe) Confirm Administered Dose 50 mg .ROUTE .STK-MED ONE Stop: 03/26/21 11:17 Sugammadex Sodium (Sugammadex Sodium 200 Mg/2 Ml Vial) Confirm Administered Dose 200 mg .ROUTE .STK-MED ONE Stop: 03/26/21 11:17 - Exam Urinary Catheter Total Time: 0Days 20Hours General: Alert, Oriented Neck: Supple Lungs: Clear to Auscultation, Normal Respiratory Effort Cardiovascular: Regular Rate, Regular Rhythm GI/Abdominal Exam: Normal Bowel Sounds, Soft, Non-Tender Extremities: Normal Inspection, Normal Range of Motion - Patient Data Lab Results Last 24 hrs: Laboratory Results - last 24 hr 03/31/21 03/31/21 03/31/21 Range/Units 05:43 05:43 08:06 WBC 13.73 H (4.0-11.0) K/uL RBC 3.94 L (4.50-5.90) M/uL Hgb 11.8 L (13.0-17.0) g/dL Hct 34.3 L (38.0-50.0) % MCV 87.1 (80.0-98.0) fL MCH 29.9 (27.0-32.0) pg MCHC 34.4 (31.0-37.0) g/dL RDW Std Deviation 44.7 (28.0-62.0) fl RDW Coeff of Mariah 14 (11.0-15.0) % Plt Count 354 (150-400) K/uL MPV 10.30 (7.40-12.00) fL Add Manual Diff YES Neutrophils % (Manual) 75 (48.0-80.0) % Band Neutrophils % 8 % Lymphocytes % (Manual) 11 L (16.0-40.0) % Monocytes % (Manual) 4 (0.0-15.0) % Myelocytes % 2 % Nucleated RBC % 0.0 /100WBC Absolute Seg Neuts 10.3 H (1.4-5.7) Band Neutrophils # 1.1 Lymphocytes # (Manual) 1.5 (0.6-2.4) Monocytes # (Manual) 0.5 (0.0-0.8) Absolute Myelocytes 0.3 Nucleated RBCs # 0 K/uL Sodium 135 L (136-148) mmol/L Potassium 4.2 (3.5-5.1) mmol/L Chloride 102 (98-107) mmol/L Carbon Dioxide 26.4 (21.0-32.0) mmol/L BUN 46 H (7.0-18.0) mg/dL Creatinine 1.7 H (0.8-1.3) mg/dL Est Cr Clr Drug Dosing 43.68 mL/min Estimated GFR (MDRD) 40.2 ml/min Glucose 173 H (74-106) mg/dL POC Glucose 178 H (70-99) mg/dL Calcium 7.8 L (8.5-10.1) mg/dL Phosphorus 4.4 (2.6-4.7) mg/dL Magnesium 2.3 (1.8-2.4) mg/dL Result Diagrams: 03/31/21 05:43 03/31/21 05:43 Jacques Results Last 24 hrs: Microbiology 03/26/21 14:42 Aerobic Culture - Preliminary Gallbladder Fluid - Bile Klebsiella Pneumonia Ss Pneumo Gram Stain - Final Anaerobic Culture - Preliminary Anaerobic Gram Positive Alex 03/25/21 18:27 Aerobic Blood Culture - Final Blood - Venous - Lab Draw NO GROWTH AFTER 5 DAYS Anaerobic Blood Culture - Final NO GROWTH AFTER 5 DAYS 03/25/21 18:07 Aerobic Blood Culture - Final Blood - Venous NO GROWTH AFTER 5 DAYS Anaerobic Blood Culture - Final NO GROWTH AFTER 5 DAYS Sepsis Event Note - Evaluation Sepsis Screening Result: No Definite Risk - Focused Exam Vital Signs: Vital Signs Temp Pulse Resp BP BP Pulse Ox Pulse Ox 03/31/21 12:00 36.2 C 79 16 145/65 H 94 L 03/31/21 08:24 36.2 C 82 16 145/70 H 94 L 03/31/21 08:06 145/70 H 03/31/21 08:00 94 L 03/31/21 05:00 35.9 C L 78 16 157/75 H 93 L - Problem List & Annotations (1) Gangrene of gallbladder in cholecystitis SNOMED Code(s): 220361157, 178369278 Code(s): K82.A1 - GANGRENE OF GALLBLADDER IN CHOLECYSTITIS Status: Acute Current Visit: Yes (2) Acute cholecystitis SNOMED Code(s): 27106461 Code(s): K81.0 - ACUTE CHOLECYSTITIS Status: Acute Current Visit: Yes (3) Diabetes SNOMED Code(s): 78775889 Code(s): E11.9 - TYPE 2 DIABETES MELLITUS WITHOUT COMPLICATIONS Status: Acute Current Visit: Yes (4) Ischemic stroke SNOMED Code(s): 869512175 Code(s): I63.9 - CEREBRAL INFARCTION, UNSPECIFIED Status: Acute Current Visit: No - Problem List Review Problem List Initiated/Reviewed/Updated: Yes - Plan Plan:: 71 yo male admitted for acute cholecystitis Acute cholecystitis: Surgery is on board, s/p subtotal cholecystectomy secondary to gangrenous cholecystitis, drainage has improved today, per surgery likely benign but consider bile leak if no improvement by tomorrow, possible transfer for ERCP, HIDA scan if drainage gets worse, continue IV antibiotics Hypoxia: resolved acute on CKD: Creatinine improving, continue holding ramipril and diuretic, will hold IV fluids for now since patient is eating and drinking well, DM: patient uses insulin pump at home, restart his insulin pump by himself and wishes to continue, instructed him on the need to inform nurses prior to giving himself boluses, on a basal rate of one unit an hour. Patient has a continuous glucose monitoring device, will cut back on finger glucose testing DVT ppx: heparin.
--- NOTE | 2021-03-31 14:23 | PN ---
SUBJECTIVE: The patient says he is again feeling pretty good today. He has no complaints. He feels like his ARAM output has been decreasing. He says that he is getting some heartburn at night. In fact, this morning he had a small emesis, but now he is feeling good. No nausea. He also started having some small bowel movements, he said yesterday evening and this morning. The patient says that he is feeling pretty good and feels much less swollen today. OBJECTIVE: GENERAL: The patient is lying comfortably in his bed. He is alert and oriented, in no acute distress. VITAL SIGNS: Temperature is 97.1, pulse is 79, blood pressure is 145/65, saturating 94% on room air. ABDOMEN: Soft, nondistended. His incision site looks clean and intact. He is having a little bit of clear drainage from his supraumbilical incision. Does not appear to have any signs of infection. Feeling that the fascia still intact. Do not feel any bulge or fascial defect, and his ARAM shows serosanguineous output. No longer appears bilious. The last 12-hour shift, he did have 215 out down to 100. LABORATORY DATA: White blood cell count is 13.73, hemoglobin is 11.8, platelet count is 354. Sodium 135, potassium is 4.2, chloride 102, BUN 46, creatinine 1.7. ASSESSMENT AND PLAN: The patient is a pleasant 71-year-old gentleman postop day #5 from laparoscopic subtotal cholecystectomy for a gangrenous gallbladder. Appears doing better. Yesterday, he had increased output, a little more bilious today. The output has been decreased and more serosanguineous. Did go over with the patient again that there is always a chance of bile leak since we did not close the cystic duct, however, his output is no longer bilious and is decreasing. He did have a small emesis, but he is also having bowel movements and no longer feels nauseated. I did go over with the patient that it looks like maybe he has turned the corner, but we still have to keep track of his ARAM output. He still might need stent placement. However, with decrease in output and being nonbilious, the patient would like to wait. I did go over that if he continues to have low output from the ARAM and nonbilious, then maybe we will send him home tomorrow if he continues to tolerate diet and have bowel movements and is feeling good. Also, fluid from his umbilical incision. I do not feel like there is any hernia or there might be fascial defect surgery was not . All of the patient's questions were answered. Did discuss with the Medicine team. KIRTI BILLS /[id number]
[2021-04-01] MEDS: Heparin Sodium 5,000 Units/ML Vial SUBCUT SCH ×2 (00:31→09:30)
[2021-04-01] MEDS: metroNIDAZOLE/Normal Saline 500 MG in Premix Bag 1 BAG IV SCH ×2 (00:32→06:07)
[2021-04-01] MEDS: Acetaminophen/HYDROcodone 325-5 MG Tab PO PRN (01:14)
[2021-04-01 06:20] LABS: CARBON DIOXIDE,CO2 24.3 mmol/L (21.0-32.0); POTASSIUM,K 4.5 mmol/L (3.5-5.1)
[2021-04-01] MEDS ORDERED: amLODIPine 5 MG Tab PO SCH (09:00)
[2021-04-01] MEDS ORDERED: atorvaSTATin 20 MG Tab PO SCH (09:00)
[2021-04-01] MEDS ORDERED: Furosemide 40 MG Tab PO SCH (09:00)
[2021-04-01] MEDS: amLODIPine 5 MG Tab PO SCH (09:31)
[2021-04-01] MEDS ORDERED: Pantoprazole 40 MG Tab.CR PO SCH (11:58)
[2021-04-01] MEDS ORDERED: Acidophilus with Citrus Pectin Tab PO SCH (12:00)
[2021-04-01] MEDS ORDERED: Levofloxacin 750 MG Tab PO SCH (12:00)
[2021-04-01] MEDS ORDERED: Clindamycin HCl 150 MG Cap PO SCH (12:00)
--- NOTE | 2021-04-01 13:02 | PCM.DCSUM1 ---
Discharge Summary - Hospital Course Diagnosis: Stroke: No - Discharge Data Discharge Date: 04/01/21 Discharge Disposition: Home, Self-Care 01 Condition: Good - Referral to Home Health Primary Care Physician: Alexis Berkowitz MD - Discharge Diagnosis/Problem(s) (1) Gangrene of gallbladder in cholecystitis SNOMED Code(s): 022052772, 956575800 ICD Code: K82.A1 - GANGRENE OF GALLBLADDER IN CHOLECYSTITIS Status: Acute Current Visit: Yes (2) Acute cholecystitis SNOMED Code(s): 29250659 ICD Code: K81.0 - ACUTE CHOLECYSTITIS Status: Acute Current Visit: Yes (3) Diabetes SNOMED Code(s): 14321612 ICD Code: E11.9 - TYPE 2 DIABETES MELLITUS WITHOUT COMPLICATIONS Status: Acute Current Visit: Yes (4) Ischemic stroke SNOMED Code(s): 704024000 ICD Code: I63.9 - CEREBRAL INFARCTION, UNSPECIFIED Status: Acute Current Visit: No - Patient Summary/Data Operative Procedure(s) Performed: Laparoscopic cholecystectomy - Discharge Plan *PRESCRIPTION DRUG MONITORING PROGRAM REVIEWED*: No *COPY OF PRESCRIPTION DRUG MONITORING REPORT IN PATIENT YANCY: No Prescriptions/Med Rec: Lactobacillus Acidophilus [Acidophilus] 1 each PO DAILY #20 capsule clindamycin HCL [Cleocin] 600 mg PO Q6H 7 Days #28 cap levoFLOXacin [Levaquin] 750 mg PO Q48H #3 tablet Home Medications: Home Meds Insulin Aspart [NovoLOG] 1 unit PO ASDIRECTED 03/22/21 [History] Ondansetron [Zofran ODT] 4 mg PO Q6H PRN #8 tab.dis 03/22/21 [Rx] B Complex W-C No.20/Folic Acid [[place] Caps Softgel] 1 mg PO DAILY 03/26/21 [History] Torsemide 60 mg PO DAILY 03/26/21 [History] allopurinoL [Zyloprim] 100 mg PO DAILY 03/26/21 [History] amLODIPine Besylate [Amlodipine Besylate] 10 mg PO DAILY 03/26/21 [History] atorvaSTATin [Lipitor] 20 mg PO DAILY 03/26/21 [History] ramipriL [Ramipril] 2.5 mg PO DAILY 03/26/21 [History] Lactobacillus Acidophilus [Acidophilus] 1 each PO DAILY #20 capsule 04/01/21 [Rx] clindamycin HCL [Cleocin] 600 mg PO Q6H 7 Days #28 cap 04/01/21 [Rx] levoFLOXacin [Levaquin] 750 mg PO Q48H #3 tablet 04/01/21 [Rx] Patient Handouts: Gallbladder Eating Plan, Cholecystitis, [id number] Referrals: Andressa Schwartz MD [Physician] - 04/05/21 1:30 pm Alexis Berkowitz MD [Primary Care Provider] - 04/09/21 10:00 am - Patient Data Vitals - Most Recent: Last Vital Signs Temp 36.3 C 04/01/21 11:00 Pulse 72 04/01/21 11:00 Resp 12 04/01/21 11:00 BP 144/70 H 04/01/21 11:00 Pulse Ox 92 L 04/01/21 11:00 Weight - Most Recent: 107.728 kg I&O - Last 24 hours: Intake & Output 03/31/21 04/01/21 04/01/21 22:59 06:59 14:59 Intake Total 1340 560 100 Output Total 1080 1155 Balance 260 -595 100 Lab Results - Last 24 hrs: Laboratory Results - last 24 hr 04/01/21 04/01/21 04/01/21 Range/Units 05:18 05:18 06:04 WBC 13.38 H (4.0-11.0) K/uL RBC 3.78 L (4.50-5.90) M/uL Hgb 11.6 L (13.0-17.0) g/dL Hct 33.0 L (38.0-50.0) % MCV 87.3 (80.0-98.0) fL MCH 30.7 (27.0-32.0) pg MCHC 35.2 (31.0-37.0) g/dL RDW Std Deviation 45.5 (28.0-62.0) fl RDW Coeff of Mariah 14 (11.0-15.0) % Plt Count 371 (150-400) K/uL MPV 9.70 (7.40-12.00) fL Neut % (Auto) CLARIFIER OPERATOR Lymph % (Auto) CLARIFIER OPERATOR [place] % (Auto) CLARIFIER OPERATOR Eos % (Auto) CLARIFIER OPERATOR Baso % (Auto) CLARIFIER OPERATOR Neut # (Auto) CLARIFIER OPERATOR Lymph # (Auto) CLARIFIER OPERATOR [place] # (Auto) CLARIFIER OPERATOR Eos # (Auto) CLARIFIER OPERATOR Baso # (Auto) CLARIFIER OPERATOR Add Manual Diff YES Neutrophils % (Manual) 65 (48.0-80.0) % Band Neutrophils % 14 % Lymphocytes % (Manual) 16 (16.0-40.0) % Monocytes % (Manual) 4 (0.0-15.0) % Eosinophils % (Manual) 1 (0.0-7.0) % Nucleated RBC % 0.0 /100WBC Absolute Seg Neuts 8.7 H (1.4-5.7) Band Neutrophils # 1.9 Lymphocytes # (Manual) 2.1 (0.6-2.4) Monocytes # (Manual) 0.5 (0.0-0.8) Eosinophils # (Manual) 0.1 (0.0-0.7) Nucleated RBCs # 0 K/uL Sodium 136 (136-148) mmol/L Potassium 4.5 (3.5-5.1) mmol/L Chloride 106 (98-107) mmol/L Carbon Dioxide 24.3 (21.0-32.0) mmol/L BUN 40 H (7.0-18.0) mg/dL Creatinine 1.6 H (0.8-1.3) mg/dL Est Cr Clr Drug Dosing 46.41 mL/min Estimated GFR (MDRD) 43.1 ml/min Glucose 88 (74-106) mg/dL POC Glucose 100 H (70-99) mg/dL Calcium 7.5 L (8.5-10.1) mg/dL Total Bilirubin 0.3 (0.2-1.0) mg/dL AST 90 H (15-37) IU/L ALT 60 (14-63) IU/L Alkaline Phosphatase 182 H (46-116) U/L Total Protein 5.0 L (6.4-8.2) g/dL Albumin 1.5 L (3.4-5.0) g/dL Globulin 3.5 (2.6-4.0) g/dL Albumin/Globulin Ratio 0.4 L (0.9-1.6) EDINSON Results - Last 24 hrs: Microbiology 03/26/21 14:42 Aerobic Culture - Preliminary Gallbladder Fluid - Bile Klebsiella Pneumonia Ss Pneumo Gram Stain - Final Anaerobic Culture - Preliminary Clostridium Perfringens Med Orders - Current: Current Medications Hydrocodone Bitart/Acetaminophen (Acetaminophen/Hydrocodone 325-5 Mg Tab) 1 tab PO Q4H PRN PRN Reason: Pain (moderate 4-6) Last Admin: 04/01/21 01:14 Dose: 1 tab Documented by: Acidophilus/Pectin (Acidophilus With [place] Pectin Tab) 1 tab PO DAILY [facility] Last Admin: 04/01/21 12:22 Dose: 1 tab Documented by: Amlodipine Besylate (Amlodipine 5 Mg Tab) 10 mg PO DAILY [facility] Last Admin: 04/01/21 09:31 Dose: 10 mg Documented by: Atorvastatin Calcium (Atorvastatin 20 Mg Tab) 20 mg PO DAILY [facility] Last Admin: 04/01/21 09:31 Dose: 20 mg Documented by: Calcium Carbonate/Glycine (Calcium Carbonate 500 Mg Tab.Chew) 1,000 mg PO TID P RN PRN Reason: Indigestion Last Admin: 03/28/21 18:46 Dose: 1,000 mg Documented by: Clindamycin HCl (Clindamycin Hcl 150 Mg Cap) 600 mg PO Q6H [facility] Last Admin: 04/01/21 12:25 Dose: 600 mg Documented by: Dextrose/Water (50% Dextrose In Water 50 Ml Syringe) 50 ml IVPUSH ASDIRECTED PRN PRN Reason: Hypoglycemia Docusate Sodium (Docusate Sodium 100 Mg Cap) 100 mg PO Q12H PRN PRN Reason: Constipation Last Admin: 03/30/21 23:09 Dose: 100 mg Documented by: Furosemide (Furosemide 40 Mg Tab) 40 mg PO DAILY [facility] Last Admin: 04/01/21 09:32 Dose: 40 mg Documented by: Glucagon (Glucagon,Human Recombinant 1 Mg Vial) 1 mg IM ASDIRECTED PRN PRN Reason: Hypoglycemia Heparin Sodium (Porcine) (Heparin Sodium 5,000 Units/Ml Vial) 5,000 units SUBCUT Q8H [facility] Last Admin: 04/01/21 09:30 Dose: 5,000 units Documented by: Pantoprazole Sodium 40 mg/ (Sodium Chloride) 10 mls @ 300 mls/hr IV DAILY [facility] Last Admin: 03/31/21 08:05 Dose: 300 mls/hr Documented by: Metronidazole 500 mg/ Premix 100 mls @ 100 mls/hr IV QID [facility] Last Admin: 04/01/21 06:07 Dose: 100 mls/hr Documented by: Levofloxacin/Dextrose 750 mg/ (Premix) 150 mls @ 100 mls/hr IV Q48H [facility] Last Admin: 03/30/21 13:38 Dose: 100 mls/hr Documented by: Levofloxacin (Levofloxacin 750 Mg Tab) 750 mg PO Q48H [facility] Last Admin: 04/01/21 12:22 Dose: 750 mg Documented by: Ondansetron HCl (Ondansetron 4 Mg/2 Ml Sdv) 4 mg IVPUSH Q4H PRN PRN Reason: Nausea Ondansetron HCl (Ondansetron 4 Mg/2 Ml Sdv) 4 mg IVPUSH Q6H PRN PRN Reason: Nausea/Vomiting Pantoprazole Sodium (Pantoprazole 40 Mg Tab.Cr) 40 mg PO ACBREAKFAST [facility] Last Admin: 04/01/21 12:22 Dose: 40 mg Documented by: Discontinued Medications Albuterol (Albuterol 0.083% 2.5 Mg/3 Ml Neb Soln) 2.5 mg NEB ONETIME PRN PRN Reason: Wheezing Bupivacaine HCl (Bupivacaine 0.5% 30 Ml Sdv) Confirm Administered Dose 30 ml .ROUTE .STK-MED ONE Stop: 03/26/21 13:04 Droperidol (Droperidol 5 Mg/2 Ml Sdv) 0.625 mg IVPUSH ONETIME PRN PRN Reason: Nausea/Vomiting Fentanyl (Fentanyl 250 Mcg/5 Ml Sdv) Confirm Administered Dose 250 mcg .ROUTE .STK-MED ONE Stop: 03/26/21 11:15 Fentanyl (Fentanyl 100 Mcg/2 Ml Sdv) 50 mcg IVPUSH Q5M PRN PRN Reason: Pain (mild 1-3) Glycopyrrolate (Glycopyrrolate 0.2 Mg/Ml Sdv) Confirm Administered Dose 0.2 mg .ROUTE .STK-MED ONE Stop: 03/26/21 11:17 Hydromorphone HCl (Hydromorphone 2 Mg/Ml Syringe) 0.5 mg IVPUSH ONETIME ONE Stop: 03/25/21 18:10 Last Admin: 03/25/21 18:34 Dose: 0.5 mg Documented by: Hydromorphone HCl (Hydromorphone 1 Mg/Ml Syringe) 0.5 mg IVPUSH Q2H PRN PRN Reason: Pain (severe 7-10) Last Admin: 03/26/21 09:35 Dose: 0.5 mg Documented by: Hydromorphone HCl (Hydromorphone 2 Mg/Ml Syringe) 1 mg IVPUSH Q10M PRN PRN Reason: Pain (moderate 4-6) Hydromorphone HCl (Hydromorphone 2 Mg/Ml Syringe) Confirm Administered Dose 2 mg .ROUTE .STK-MED ONE Stop: 03/26/21 16:05 Piperacillin Sod/Tazobactam (Sod 4.5 gm/ Sodium Chloride) 100 mls @ 100 mls/hr IV ONETIME ONE Stop: 03/25/21 19:02 Last Admin: 03/25/21 18:35 Dose: 100 mls/hr Documented by: Lactated Ringer's (Ringers, Lactated) 1,000 mls @ 999 mls/hr IV .BOLUS ONE Stop: 03/25/21 19:08 Last Admin: 03/25/21 18:34 Dose: 999 mls/hr Documented by: Piperacillin Sod/Tazobactam (Sod 3.375 gm/ Sodium Chloride) 50 mls @ 100 mls/hr IV Q6H [facility] Last Admin: 03/28/21 08:20 Dose: 100 mls/hr Documented by: Acetaminophen (Ofirmev 1000 Mg/100 Ml) Confirm Administered Dose 100 mls @ as directed .ROUTE .STK-MED ONE Stop: 03/26/21 13:38 Acetaminophen (Ofirmev 1000 Mg/100 Ml) Confirm Administered Dose 100 mls @ as directed .ROUTE .STK-MED ONE Stop: 03/26/21 13:38 Lactated Ringer's (Ringers, Lactated) 1,000 mls [facility] Admin: 03/27/21 10:59 Dose: 125 mls/hr Documented by: Lactated Ringer's (Ringers, Lactated) 1,000 mls @ [facility] Last Admin: 03/29/21 04:14 Dose: 100 mls/hr Documented by: Lactated Ringer's (Ringers, Lactated) 500 mls @ 999 mls/hr IV ONETIME ONE Stop: 03/30/21 10:59 Last Admin: 03/30/21 11:30 Dose: 999 mls/hr Documented by: Indocyanine Green (Indocyanine Green 25 Mg Sdv) Confirm Administered Dose 25 mg .ROUTE .STK-MED ONE Stop: 03/26/21 11:02 Insulin Aspart (Insulin Aspart 100 Units/Ml 3 Ml Pen) 0 unit SUBCUT Q6H [facility]; Protocol Last Admin: 03/27/21 17:41 Dose: 8 units Documented by: Insulin Glargine (Insulin Glargine,Human Rec. Analog 100 Units/Ml 3 Ml Pen) 18 units SUBCUT BEDTIME [facility] Last Admin: 03/26/21 20:52 Dose: 18 units Documented by: Insulin Glargine (Insulin Glargine,Human Rec. Analog 100 Units/Ml 3 Ml Pen) 18 units SUBCUT NOW ONE Stop: 03/25/21 23:31 Last Admin: 03/26/21 00:10 Dose: 18 units Documented by: Insulin Glargine (Insulin Glargine,Human Rec. Analog 100 Units/Ml 3 Ml Pen) 22 units SUBCUT BEDTIME [facility] Ketamine HCl (Ketamine 500 Mg/10 Ml Mdv) Confirm Administered Dose 500 mg .ROUTE .STK-MED ONE Stop: 03/26/21 11:15 Ketorolac Tromethamine (Ketorolac 30 Mg/Ml Sdv) Confirm Administered Dose 30 mg .ROUTE .STK-MED ONE Stop: 03/26/21 11:17 Lidocaine (Lidocaine 2% 5 Ml Sdv) Confirm Administered Dose 5 ml .ROUTE .STK-MED ONE Stop: 03/26/21 11:17 Metoclopramide HCl (Metoclopramide 10 Mg/2 Ml Sdv) 10 mg IVPUSH ONETIME PRN PRN Reason: Nausea/Vomiting Morphine Sulfate (Morphine 2 Mg/Ml Syringe) 2 mg IVPUSH Q10M PRN PRN Reason: Pain (severe 7-10) Naloxone HCl (Naloxone 0.4 Mg/Ml Syringe) 0.1 mg IVPUSH ASDIRECTED PRN PRN Reason: Respiratory Depression Octyl Cyanoacrylate (Octyl 2-Cyanoacrylate 1 Tube) Confirm Administered Dose 1 applic .ROUTE .STK-MED ONE Stop: 03/26/21 14:25 Ondansetron HCl (Ondansetron 4 Mg/2 Ml Sdv) 4 mg IVPUSH ONETIME PRN PRN Reason: Nausea/Vomiting Polyethylene Glycol (Polyethylene Glycol 3350 Powder 17 Gm Packet) 17 gm PO ONETIME ONE Stop: 03/30/21 10:25 Last Admin: 03/30/21 11:30 Dose: 17 gm Documented by: Propofol (Propofol 200 Mg/20 Ml Sdv) Confirm Administered Dose 200 mg .ROUTE .STK-MED ONE Stop: 03/26/21 11:15 Rocuronium What Cheer (Rocuronium What Cheer 50 Mg/5 Ml Syringe) Confirm Administered Dose 50 mg .ROUTE .STK-MED ONE Stop: 03/26/21 11:17 Sugammadex Sodium (Sugammadex Sodium 200 Mg/2 Ml Vial) Confirm Administered Dose 200 mg .ROUTE .STK-MED ONE Stop: 03/26/21 11:17
--- NOTE | 2021-04-02 07:38 | PN ---
SUBJECTIVE: Patient is lying comfortably in his hospital room. The patient says he feels again fairly well today, he has no complaints. He has had no more nausea or vomiting. He has been tolerating diet well. He has been up and ambulating. The patient says he has only had minimal drainage from his periumbilical incision. Also his ARAM has greatly reduced and is only 55 out overnight and the color today is serous. OBJECTIVE: VITAL SIGNS: Temperature is 97.6, pulse is 73, blood pressure is 142/68, saturating 92% on room air. ABDOMEN: Soft and nondistended. Just a minimal incisional tenderness. Incisions are all clean with no signs of infection in his periumbilical incision. Incision currently actually is dry. [place] are in place. ARAM output over the last 12 hours were 100 down to 80 down to 55. Output currently is clear to slightly straw color. LABORATORY DATA: White count 13.38, hemoglobin is 11.6, platelet count is 371. Total bilirubin 0.3, AST is 90, ALT is 60, alkaline phosphatase is 182. Sodium is 136, potassium 4.5, chloride is 106, BUN is 40, creatinine 1.6. ASSESSMENT AND PLAN: The patient is a pleasant 71-year-old gentleman postop day #6 laparoscopic subtotal fenestrated cholecystectomy for gangrenous gallbladder. Over the past 24 hours, his ARAM output has been going down and usually mainly serous in color. The patient says he is feeling good. He has been up and ambulating. He has been eating, going to the bathroom. He has no complaints and home. I discussed with the patient again he could always develop subtotal cholecystectomy, although his ARAM output has been decreasing regularly and his drain output does not look bilious. I told the patient we could send home today. He should still continue his antibiotics. Discussed with the Medicine Team. The patient will follow up in the [facility] early next week with some followup labs. I told patient again that he might still need a HIDA or maybe even an ERCP if the drain output increases or changes its color again. The patient understands, feels ready to go home. Answered all the patient's questions. KIRTI / SANJU /[id number]
== END 2021-04-01 14:00 | disposition home or self-care (01) | DRG 418 ==
LOC: MW.ED 17:20 → MW.MS 20:30
PROVIDERS: ADMIT Internal Medicine; ATTEND Internal Medicine
PROC: 0FT44ZZ Resection of Gallbladder, Percutaneous Endoscopic Approach (ICD-10-PCS; principal; 2021-03-26)
DX: K81.0 Acute cholecystitis (principal); E10.22 Type 1 diabetes mellitus with diabetic chronic kidney disease; J98.11 Atelectasis; E87.1 Hypo-osmolality and hyponatremia; K82.A1 Gangrene of gallbladder in cholecystitis; I12.9 Hypertensive chronic kidney disease with stage 1 through stage 4 chronic kidney disease, or unspecified chronic kidney disease; E11.22 Type 2 diabetes mellitus with diabetic chronic kidney disease; E11.21 Type 2 diabetes mellitus with diabetic nephropathy; Z20.822 Contact with and (suspected) exposure to COVID-19; N40.0 Benign prostatic hyperplasia without lower urinary tract symptoms; E88.09 Other disorders of plasma-protein metabolism, not elsewhere classified; H54.7 Unspecified visual loss; M10.9 Gout, unspecified; N18.9 Chronic kidney disease, unspecified; E78.5 Hyperlipidemia, unspecified; E11.42 Type 2 diabetes mellitus with diabetic polyneuropathy; Z96.41 Presence of insulin pump (external) (internal); Z88.0 Allergy status to penicillin; Z91.018 Allergy to other foods; Z79.4 Long term (current) use of insulin; Z87.891 Personal history of nicotine dependence; Z86.73 Personal history of transient ischemic attack (TIA), and cerebral infarction without residual deficits; Z79.899 Other long term (current) drug therapy
CPT/HCPCS: 36415; 51702; 71045; 76705; 80053; 83605; 83735; 83880; 84484; 85025; 85610; 87040 ×2; 93005; 96365; 96375; 99285; J1170; J2543; J7120; U0002; 00790; 74181; 74181-26; 80048; 82570; 82947; 84100; 84300; 87070; 87075; 87077; 87186; 87205; 88304; 93010; 99284; A9270-GY; C9113; J0131; J1644; J1815-GY; J1885; J1956; J2704; J3010; J3490

== ENCOUNTER 2021-04-19 21:16 | Emergency (ER) | payer MEDICARE, BC ==
--- NOTE | 2021-04-19 21:17 | EDM.PDOC ---
ED HPI GENERAL MEDICAL PROBLEM - General Stated Complaint: POSSIBLE STROKE Time Seen by Provider: 04/19/21 21:16 Source of Information: Reports: Patient History Limitations: Reports: No Limitations - History of Present Illness INITIAL COMMENTS - FREE TEXT/NARRATIVE: 71M PMHx HTN, HLD, IDDM2 presents for concern for CVA. Patient around 8:45PM noted a heaviness in his left upper extremity and clumsiness of his hand. Denies slurred speech, confusion, word finding difficulty, facial asymmetry. No h/o CVA in past (has documented ischemic CVA 02/2020 but patient states after transfer he had normal MRI and symptoms were deemed 2/2 to hypoglycemia). Symptoms not worsening nor improving. - Related Data Allergies Allergy/AdvReac Type Severity Reaction Status Date / Time gluten Allergy Blisters Verified 04/19/21 21:42 Penicillins Allergy Other Verified 04/19/21 21:42 Home Meds: Home Meds Insulin Aspart [NovoLOG] 1 unit PO ASDIRECTED 03/22/21 [History] Ondansetron [Zofran ODT] 4 mg PO Q6H PRN #8 tab.dis 03/22/21 [Rx] B Complex W-C No.20/Folic Acid [Troup Caps Softgel] 1 mg PO DAILY 03/26/21 [History] Torsemide 60 mg PO DAILY 03/26/21 [History] allopurinoL [Zyloprim] 100 mg PO DAILY 03/26/21 [History] amLODIPine Besylate [Amlodipine Besylate] 10 mg PO DAILY 03/26/21 [History] atorvaSTATin [Lipitor] 20 mg PO DAILY 03/26/21 [History] ramipriL [Ramipril] 2.5 mg PO DAILY 03/26/21 [History] Lactobacillus Acidophilus [Acidophilus] 1 each PO DAILY #20 capsule 04/01/21 [Rx] clindamycin HCL [Cleocin] 600 mg PO Q6H 7 Days #28 cap 04/01/21 [Rx] levoFLOXacin [Levaquin] 750 mg PO Q48H #3 tablet 04/01/21 [Rx] Past Medical History HEENT History: Reports: Impaired Vision Cardiovascular History: Reports: Hypertension Respiratory History: Reports: None, Sleep Apnea Gastrointestinal History: Reports: Celiac Disease Genitourinary History: Reports: None, Chronic Renal Insuffiency, Prostate Disorder Musculoskeletal History: Reports: Fracture Other Musculoskeletal History: Left Leg Fracture Neurological History: Reports: None, Neuropathy, Diabetic Psychiatric History: Reports: None Endocrine/Metabolic History: Reports: Diabetes, Type I 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 GI Surgical History: Reports: Other (See Below) (Rectal Surgery) Male Surgical History: Reports: Other (See Below) Other Male Surgeries/Procedures: Surgery for undescended testicle in preschool Oncologic Surgical History: Reports: Other (See Below) Other Oncologic Surgeries/Procedures: Skin cancers - Dermatological Surgical History: Reports: Other (See Below) Social & Family History - Family History Family Medical History: No Pertinent Family History - Caffeine Use Caffeine Use: Reports: None ED ROS GENERAL - Review of Systems Review Of Systems: Comprehensive ROS is negative, except as noted in HPI. ED EXAM, GENERAL - Physical Exam Exam: See Below Exam Limited By: No Limitations General Appearance: Alert, WD/WN, No Apparent Distress Eye Exam: Bilateral Eye: EOMI, PERRL Ears: Hearing Grossly Normal Throat/Mouth: Normal Voice, No Airway Compromise Head: Atraumatic, Normocephalic Neck: Normal Inspection Respiratory/Chest: No Respiratory Distress, Lungs Clear, Normal Breath Sounds, No Accessory Muscle Use Cardiovascular: Normal Peripheral Pulses, Regular Rate, Rhythm Extremities: Normal Inspection Neurological: Alert, Oriented, CN II-XII Intact, Other (no pronator drift b/l, no leg drift b/l, normal crisis counselor strength and LE strength b/l, decreased sensation in LUE, ataxia of LUE in [id number] test, normal right [id number]) Psychiatric: Normal Affect, Normal Mood Skin Exam: Warm, Dry, Intact, Normal Color #1 Interpretation EKG Date: 04/19/21 Time: 22:10 Rhythm: NSR Rate (Beats/Min): 79 [place]: Normal P-Wave: Present QRS: Normal ST-T: Normal QT: Normal CO/PQ Interval: 185 Comparison: NA - No Prior EKG EKG Interpretation Comments: no ischemic changes Course - Vital Signs Last Recorded V/S: Last Vital Signs Temp 97.0 F 04/19/21 21:16 Pulse 76 04/19/21 21:16 Resp 18 04/19/21 21:16 BP 154/70 H 04/19/21 21:16 Pulse Ox 97 04/19/21 21:16 - Orders/Labs/Meds Orders: Active Orders 24 hr Category Date Time Status Blood Glucose Check, Bedside [RC] ONETIME Care 04/19/21 21:25 Active EKG Documentation Completion [RC] STAT Care 04/19/21 21:24 Active Insert Maldonado Catheter [Insert Urinary Catheter] [OM.PC] Care 04/19/21 21:45 Ordered Q24H Urinary Catheter Assessment [RC] ASDIRECTED Care 04/19/21 21:44 Active CORONAVIRUS COVID-19 RAYNE [MOLEC] Stat Lab 04/19/21 22:11 Received Sodium Chloride 0.9% [Saline Flush] Med 04/19/21 21:24 Active 10 ml FLUSH ASDIRECTED PRN Sodium Chloride 0.9% [Saline Flush] Med 04/19/21 21:24 Active 2.5 ml FLUSH ASDIRECTED PRN Saline Lock Insert [OM.PC] Stat Oth 04/19/21 21:24 Ordered Medication Orders Sodium Chloride (Sodium Chloride 0.9% 10 Ml Syringe) 10 ml FLUSH ASDIRECTED PRN PRN Reason: Keep Vein Open Last Admin: 04/19/21 22:14 Dose: 10 ml Documented by: KELLY Sodium Chloride (Sodium Chloride 0.9% 2.5 Ml Syringe) 2.5 ml FLUSH ASDIRECTED PRN PRN Reason: Keep Vein Open Last Admin: 04/19/21 22:14 Dose: 2.5 ml Documented by: KELLY Labs: Laboratory Tests 04/19/21 04/19/21 04/19/21 Range/Units 21:26 21:26 21:26 WBC 5.42 (4.0-11.0) K/uL RBC 3.46 L (4.50-5.90) M/uL Hgb 10.4 L (13.0-17.0) g/dL Hct 30.5 L (38.0-50.0) % MCV 88.2 (80.0-98.0) fL MCH 30.1 (27.0-32.0) pg MCHC 34.1 (31.0-37.0) g/dL RDW Std Deviation 46.3 (28.0-62.0) fl RDW Coeff of Mariah 14 (11.0-15.0) % Plt Count 243 (150-400) K/uL MPV 10.60 (7.40-12.00) fL Neut % (Auto) 46.5 L (48.0-80.0) % Lymph % (Auto) 31.4 (16.0-40.0) % Preston % (Auto) 9.2 (0.0-15.0) % Eos % (Auto) 10.1 H (0.0-7.0) % Baso % (Auto) 2.8 H (0.0-1.5) % Neut # (Auto) 2.5 (1.4-5.7) K/uL Lymph # (Auto) 1.7 (0.6-2.4) K/uL Preston # (Auto) 0.5 (0.0-0.8) K/uL Eos # (Auto) 0.6 (0.0-0.7) K/uL Baso # (Auto) 0.2 H (0.0-0.1) K/uL Nucleated RBC % 0.0 /100WBC Nucleated RBCs # 0 K/uL INR 1.00 APTT 23.0 (18.6-31.3) SEC Sodium 137 (136-148) mmol/L Potassium 4.5 (3.5-5.1) mmol/L Chloride 100 (98-107) mmol/L Carbon Dioxide 23.7 (21.0-32.0) mmol/L BUN 32 H (7.0-18.0) mg/dL Creatinine 1.7 H (0.8-1.3) mg/dL Est Cr Clr Drug Dosing TNP Estimated GFR (MDRD) 40.2 ml/min Glucose 196 H (74-106) mg/dL Calcium 7.9 L (8.5-10.1) mg/dL Magnesium 1.9 (1.8-2.4) mg/dL Total Bilirubin 0.2 (0.2-1.0) mg/dL AST 27 (15-37) IU/L ALT 33 (14-63) IU/L Alkaline Phosphatase 101 (46-116) U/L Troponin I < 0.050 (0.000-0.056) ng/mL Total Protein 6.8 (6.4-8.2) g/dL Albumin 3.0 L (3.4-5.0) g/dL Globulin 3.8 (2.6-4.0) g/dL Albumin/Globulin Ratio 0.8 L (0.9-1.6) Urine Color Urine Appearance Urine pH (5.0-8.0) Ur Specific [place] (1.001-1.035) Urine Protein (NEGATIVE) mg/dL Urine Glucose (UA) (NEGATIVE) mg/dL Urine Ketones (NEGATIVE) mg/dL Urine Occult Blood (NEGATIVE) Urine Nitrite (NEGATIVE) Urine Bilirubin (NEGATIVE) Urine Urobilinogen (<2.0) EU/dL Ur Leukocyte Esterase (NEGATIVE) Urine RBC (0-2/HPF) Urine WBC (0-5/HPF) Ur Epithelial Cells (NONE-FEW) Amorphous Sediment (NEGATIVE) Urine Bacteria (NEGATIVE) 04/19/21 Range/Units 22:11 WBC (4.0-11.0) K/uL RBC (4.50-5.90) M/uL Hgb (13.0-17.0) g/dL Hct (38.0-50.0) % MCV (80.0-98.0) fL MCH (27.0-32.0) pg MCHC (31.0-37.0) g/dL RDW Std Deviation (28.0-62.0) fl RDW Coeff of Mariah (11.0-15.0) % Plt Count (150-400) K/uL MPV (7.40-12.00) fL Neut % (Auto) (48.0-80.0) % Lymph % (Auto) (16.0-40.0) % Preston % (Auto) (0.0-15.0) % Eos % (Auto) (0.0-7.0) % Baso % (Auto) (0.0-1.5) % Neut # (Auto) (1.4-5.7) K/uL Lymph # (Auto) (0.6-2.4) K/uL Preston # (Auto) (0.0-0.8) K/uL Eos # (Auto) (0.0-0.7) K/uL Baso # (Auto) (0.0-0.1) K/uL Nucleated RBC % /100WBC Nucleated RBCs # K/uL INR APTT (18.6-31.3) SEC Sodium (136-148) mmol/L Potassium (3.5-5.1) mmol/L Chloride (98-107) mmol/L Carbon Dioxide (21.0-32.0) mmol/L BUN (7.0-18.0) mg/dL Creatinine (0.8-1.3) mg/dL Est Cr Clr Drug Dosing Estimated GFR (MDRD) ml/min Glucose (74-106) mg/dL Calcium (8.5-10.1) mg/dL Magnesium (1.8-2.4) mg/dL Total Bilirubin (0.2-1.0) mg/dL AST (15-37) IU/L ALT (14-63) IU/L Alkaline Phosphatase (46-116) U/L Troponin I (0.000-0.056) ng/mL Total Protein (6.4-8.2) g/dL Albumin (3.4-5.0) g/dL Globulin (2.6-4.0) g/dL Albumin/Globulin Ratio (0.9-1.6) Urine Color YELLOW Urine Appearance CLEAR Urine pH 5.0 (5.0-8.0) Ur Specific [place] >= 1.030 (1.001-1.035) Urine Protein 100 H (NEGATIVE) mg/dL Urine Glucose (UA) NEGATIVE (NEGATIVE) mg/dL Urine Ketones NEGATIVE (NEGATIVE) mg/dL Urine Occult Blood NEGATIVE (NEGATIVE) Urine Nitrite NEGATIVE (NEGATIVE) Urine Bilirubin NEGATIVE (NEGATIVE) Urine Urobilinogen 0.2 (<2.0) EU/dL Ur Leukocyte Esterase NEGATIVE (NEGATIVE) Urine RBC 0-2 (0-2/HPF) Urine WBC 0-2 (0-5/HPF) Ur Epithelial Cells FEW (NONE-FEW) Amorphous Sediment LIGHT (NEGATIVE) Urine Bacteria RARE (NEGATIVE) Meds: Medications Generic Name Dose Route Start Last Admin Trade Name Freq PRN Reason Stop Dose Admin Sodium Chloride 10 ml 04/19/21 21:24 04/19/21 22:14 Sodium Chloride 0.9% 10 Ml Syringe FLUSH 10 ml ASDIRECTED PRN Administration Keep Vein Open Sodium Chloride 2.5 ml 04/19/21 21:24 04/19/21 22:14 Sodium Chloride 0.9% 2.5 Ml Syringe FLUSH 2.5 ml ASDIRECTED PRN Administration Keep Vein Open Discontinued Medications Generic Name Dose Route Start Last Admin Trade Name Freq PRN Reason Stop Dose Admin Alteplase, Recombinant 9 mg 04/19/21 21:45 04/19/21 22:23 Alteplase 100 Mg Vial IV 04/19/21 21:46 9 mg BOLUS STA Administration Alteplase, Recombinant 81 mg/ 0 mls @ 0 mls/hr 04/19/21 21:45 04/19/21 22:23 Alteplase, Recombinant IV 04/19/21 21:46 81 mls/hr ASDIRECTED STA Administration Iopamidol 100 ml 04/19/21 21:33 04/19/21 22:17 Iopamidol 755 Mg/Ml 100 Ml Bottle IVPUSH 04/19/21 21:34 100 ml ONETIME ONE Administration - Re-Assessments/Exams Free Text/Narrative Re-Assessment/Exam: 04/19/21 21:49 NIHSS = 2. Head CT no bleed. Spoke with Dr. Charline alston at [facility] who does recommend tPA infusion. Patient is candidate with no exclusion criteria met. No AC or antiplatelets. 04/19/21 22:34 Dr. Vanegas at [facility] agrees to accept patient. Departure - Departure Time of Disposition: 22:34 Disposition: DC/Tfer to Acute Hospital 02 Condition: Fair Clinical Impression: CVA (cerebral vascular accident) Qualifiers: CVA mechanism: unspecified Qualified Code(s): I63.9 - Cerebral infarction, unspecified - Discharge Information Referrals: Alexis Berkowitz MD [Primary Care Provider] - Critical Care Note - Critical Care Note Total Time (mins): 40 Sepsis Event Note (ED) - Focused Exam Vital Signs: Vital Signs Temp Pulse Resp BP Pulse Ox 04/19/21 21:16 97.0 F 76 18 154/70 H 97 - My Orders Last 24 Hours: My Active Orders 04/19/21 21:24 EKG Documentation Completion [RC] STAT Sodium Chloride 0.9% [Saline Flush] 10 ml FLUSH ASDIRECTED PRN Sodium Chloride 0.9% [Saline Flush] 2.5 ml FLUSH ASDIRECTED PRN Saline Lock Insert [OM.PC] Stat 04/19/21 21:25 Blood Glucose Check, Bedside [RC] ONETIME 04/19/21 21:44 Urinary Catheter Assessment [RC] ASDIRECTED 04/19/21 21:45 Insert Maldonado Catheter [Insert Urinary Catheter] [OM.PC] Q24H 04/19/21 22:11 CORONAVIRUS COVID-19 RAYNE [MOLEC] Stat - Assessment/Plan Last 24 Hours: My Active Orders 04/19/21 21:24 EKG Documentation Completion [RC] STAT Sodium Chloride 0.9% [Saline Flush] 10 ml FLUSH ASDIRECTED PRN Sodium Chloride 0.9% [Saline Flush] 2.5 ml FLUSH ASDIRECTED PRN Saline Lock Insert [OM.PC] Stat 04/19/21 21:25 Blood Glucose Check, Bedside [RC] ONETIME 04/19/21 21:44 Urinary Catheter Assessment [RC] ASDIRECTED 04/19/21 21:45 Insert Maldonado Catheter [Insert Urinary Catheter] [OM.PC] Q24H 04/19/21 22:11 CORONAVIRUS COVID-19 RAYNE [MOLEC] Stat
[2021-04-19] MEDS ORDERED: Sodium Chloride 0.9% 2.5 ML Syringe FLUSH PRN (21:24)
[2021-04-19] MEDS ORDERED: Sodium Chloride 0.9% 10 ML Syringe FLUSH PRN (21:24)
[2021-04-19] MEDS ORDERED: Iopamidol 755 Mg/ML 100 ML Bottle IVPUSH ONE (21:33)
[2021-04-19] MEDS ORDERED: Alteplase 81 MG in Infusion 1 VIAL IV STA (21:45)
[2021-04-19 21:58] LABS: BLOOD UREA NITROGEN,BUN 32 mg/dL (7.0-18.0); CARBON DIOXIDE,CO2 23.7 mmol/L (21.0-32.0); CHLORIDE,CL 100 mmol/L (98-107); GLUCOSE RANDOM 196 mg/dL (74-106); POTASSIUM,K 4.5 mmol/L (3.5-5.1); SODIUM,NA 137 mmol/L (136-148)
--- NOTE | 2021-04-19 22:06 | CT ---
Indication: left arm and facial numbness Technique: CT of the head without contrast. Coronal and sagittal reformats. Bone and soft tissue windows. Comparison: CT 02/29/2020. Findings: No acute intracranial hemorrhage or extra-axial collection. No evidence of acute cortical infarction. No mass effect or midline shift. Normal cerebral volume. The ventricles are normal in size, shape and contour for age. There is normal bhatt and white matter differentiation. The orbital contents are normal. No calvarial fractures. No lytic or sclerotic osseous lesions within the calvarium or skull base. Scalp and other imaged soft tissue structures are normal. Mastoid air cells are clear. Paranasal sinuses are well aerated. Impression: No acute intracranial abnormality. No significant change compared to 02/29/2020. Please note that all CT scans at this facility use dose modulation, iterative reconstruction, and/or weight-based dosing when appropriate to reduce radiation dose to as low as reasonably achievable. Dictated by Jim Gracia MD @ 04/19/2021 10:05:[address] Jim Gracia @ Apr 19 2021 10:05PM
--- NOTE | 2021-04-19 22:12 | CR ---
For Patients: As a result of the Century Cures Act, medical imaging exams and procedure reports are released immediately into your electronic medical record. You may view this report before your referring provider. If you have questions, please contact your health care provider. INDICATION: Stroke work up TECHNIQUE: Chest radiograph 1 view COMPARISON: 03/28/2021 FINDINGS: Moderate degradation of image quality noted due to body habitus and lordotic technique. Mediastinum: The mediastinum is normal in appearance. [id number] cardiac enlargement is present but may be accentuated by the portable technique. Lung: Small lung volumes are present with mild bibasilar subsegmental atelectasis seen. No sign of pleural effusion seen. No pneumothorax is identified. Bone and Soft tissue: Unremarkable for age. IMPRESSION: 1. Cbsy-tx-[id number] cardiac enlargement is present but may be accentuated by the portable technique. Dictated by Romeo Vigil MD @ 04/19/2021 10:11:16 PM Dictated by: Romeo Vigil MD @ 04/19/2021 22:11:20 (Electronically Signed)
--- NOTE | 2021-04-19 22:27 | CT ---
INDICATION: Acute stroke, left arm and facial numbness. TECHNIQUE: After standard noncontrast head CT, high resolution axial CT images acquired through the head and neck following rapid intravenous administration of iodinated contrast. Multiplanar MIPS of cranial and cervical vasculature performed. FINDINGS: Noncontrast head CT: There is no intracranial hemorrhage or fluid collection. The roblero-white matter differentiation is maintained. The ventricles are of normal morphology. The basal cisterns are clear. CTA head: There is extensive highly irregular calcified plaque around both carotid siphons. There is no significant stenosis or large vessel occlusion. There is no cerebral aneurysm or evidence for vascular malformation. CTA neck: There is extreme tortuosity and areas of ectasia involving the internal carotid arteries. Highly irregular atherosclerotic plaque is present in the proximal internal carotids bilaterally. There is a mild stenosis on the left, much less than 50 percent by NASCET criteria. There is no significant vertebral artery stenosis or dissection. IMPRESSION: 1. No acute intracranial abnormality at CT/CTA. 2. Heavily calcified plaque around the carotid siphons without significant stenosis. 3. Highly irregular proximal ICA plaque with a mild stenosis on the left, much less than 50 percent by NASCET criteria. Umberto Deutsch MD Neurointerventional Radiologist [facility] Please note that all CT scans at this facility use dose modulation, iterative reconstruction, and/or weight-based dosing when appropriate to reduce radiation dose to as low as reasonably achievable. Dictated by Umberto Deutsch MD @ 04/19/2021 10:26:[address] Umberto Deutsch @ Apr 19 2021 10:26PM
== END 2021-04-19 23:45 ==
LOC: MW.ED 21:16
DX: I63.9 Cerebral infarction, unspecified (principal); E10.22 Type 1 diabetes mellitus with diabetic chronic kidney disease; I12.9 Hypertensive chronic kidney disease with stage 1 through stage 4 chronic kidney disease, or unspecified chronic kidney disease; N18.9 Chronic kidney disease, unspecified; Z88.0 Allergy status to penicillin; Z91.018 Allergy to other foods; Z79.4 Long term (current) use of insulin; Z79.899 Other long term (current) drug therapy; Z86.16 Personal history of COVID-19; Z20.822 Contact with and (suspected) exposure to COVID-19
CPT/HCPCS: 36415; 37195; 51702; 70450; 70496; 70498; 71045; 80053; 81001; 83735; 84484; 85025; 85610; 85730; 93005; 96374; 99285; J2997; Q9967; U0002

== ENCOUNTER 2021-09-16 08:21 | Day surgery (SDC) | payer MEDICARE, BC ==
[~2021-09-16 08:21] MED LIST: Lactated Ringers 1,000 ML IV SCH; Sodium Chloride 0.9% 10 ML Syringe FLUSH PRN; Sodium Chloride 0.9% 2.5 ML Syringe FLUSH PRN; Sodium Chloride 0.9% 20 ML SDV IV PRN
--- NOTE | 2021-09-16 09:48 | PCM.PREANE ---
Preanesthetic Assessment - Anesthesia/Transfusion/Family Hx Anesthesia History: Prior Anesthesia Without Reaction Transfusion History: Prior Transfusion Without Reaction Intubation History: Unknown - Review of Systems General: No Symptoms Pulmonary: No Symptoms Cardiovascular: No Symptoms Gastrointestinal: No Symptoms Neurological: No Symptoms Other: Reports: None - Physical Assessment NPO Status Date: 09/16/21 NPO Status Time: 00:00 Vital Signs: Last Vital Signs Temp 97.0 F 09/16/21 08:40 Pulse 73 09/16/21 08:40 Resp 16 09/16/21 08:40 BP 184/79 H 09/16/21 08:40 Pulse Ox 97 09/16/21 08:40 Height: 5 ft 11 in Weight: 223 lb ASA Class: 3 Mental Status: Alert & Oriented x3 Airway Class: Mallampati = 2 Dentition: Reports: Normal Dentition Thyro-Mental Finger Breadths: 3 Mouth Opening Finger Breadths: 3 ROM/Head Extension: Full Lungs: Clear to Auscultation, Normal Respiratory Effort Cardiovascular: Regular Rate, Regular Rhythm - Allergies Allergies/Adverse Reactions: Allergies Allergy/AdvReac Type Severity Reaction Status Date / Time gluten Allergy Diarrhea Verified 09/10/21 12:14 Penicillins Allergy Cannot Verified 09/10/21 12:14 Remember - Acknowledgements Anesthesia Type Planned: General Anesthesia Pt an Appropriate Candidate for the Planned Anesthesia: Yes Alternatives and Risks of Anesthesia Discussed w Pt/Guardian: Yes Pt/Guardian Understands and Agrees with Anesthesia Plan: Yes PreAnesthesia Questionnaire HEENT History: Reports: Impaired Vision Other HEENT History: wears glasses Cardiovascular History: Reports: Hypertension Respiratory History: Reports: None, Sleep Apnea Gastrointestinal History: Reports: Celiac Disease Genitourinary History: Reports: Chronic Renal Insuffiency, Prostate Disorder Musculoskeletal History: Reports: Fracture Other Musculoskeletal History: Left Leg Fracture Neurological History: Reports: Neuropathy, Diabetic, TIA Other Neuro History: CVA summer- no residual symptoms Psychiatric History: Reports: None Endocrine/Metabolic History: Reports: Diabetes, Type I, Obesity/BMI 30+ Hematologic History: Reports: None Immunologic History: Reports: None Oncologic (Cancer) History: Reports: Other (See Below) Other Oncologic History: Skin Dermatologic History: Reports: Eczema - Infectious Disease History Infectious Disease History: Reports: Chicken Pox, Measles, Novel Coronavirus - Past Surgical History GI Surgical History: Reports: Other (See Below) - SUBSTANCE USE Tobacco Use Status *Q: Former Tobacco User Tobacco Use Within Last Twelve Months: No Days Per Week of Alcohol Use: 7 Number of Drinks Per Day: 2 Total Drinks Per Week: 14 Recreational Drug Use History: No - HOME MEDS Home Medications: Home Meds Insulin Aspart [NovoLOG] 1 unit SQ ASDIRECTED 03/22/21 [History] B Complex W-C No.20/Folic Acid [[place] Caps Softgel] 1 mg PO DAILY 03/26/21 [History] Torsemide 10 mg PO QAM 03/26/21 [History] allopurinoL [Zyloprim] 100 mg PO DAILY 03/26/21 [History] amLODIPine Besylate [Amlodipine Besylate] 10 mg PO DAILY 03/26/21 [History] atorvaSTATin [Lipitor] 80 mg PO BEDTIME 03/26/21 [History] ramipriL [Ramipril] 2.5 mg PO QAM 03/26/21 [History] Clopidogrel Bisulfate [Plavix] 75 mg PO DAILY 09/10/21 [History] Sildenafil Citrate [Viagra] 100 mg PO ASDIRECTED PRN 09/10/21 [History] - CURRENT (IN HOUSE) MEDS Current Meds: Current Medications Lactated Ringer's (Ringers, Lactated) 1,000 mls @ 125 mls/hr IV ASDIRECTED [facility] Last Admin: 09/16/21 08:49 Dose: 125 mls/hr Documented by: Sodium Chloride (Sodium Chloride 0.9% 10 Ml Syringe) 10 ml FLUSH ASDIRECTED PRN PRN Reason: Keep Vein Open Sodium Chloride (Sodium Chloride 0.9% 2.5 Ml Syringe) 2.5 ml FLUSH ASDIRECTED PRN PRN Reason: Keep Vein Open Sodium Chloride (Sodium Chloride 0.9% 10 Ml Syringe) 10 ml FLUSH ASDIRECTED PRN PRN Reason: Keep Vein Open Sodium Chloride (Sodium Chloride 0.9% 2.5 Ml Syringe) 2.5 ml FLUSH ASDIRECTED PRN PRN Reason: Keep Vein Open Sodium Chloride (Sodium Chloride 0.9% 20 Ml Sdv) 10 ml IV ASDIRECTED PRN PRN Reason: IV Use
[2021-09-16] MEDS ORDERED: fentaNYL 100 MCG/2 ML SDV ONE (11:07)
[2021-09-16] MEDS ORDERED: Ondansetron 4 MG/2 ML SDV ONE (11:07)
[2021-09-16] MEDS ORDERED: Lidocaine 2% 5 ML SDV ONE (11:07)
[2021-09-16] MEDS ORDERED: propofoL 100 ML ONE (11:11)
[2021-09-16] MEDS ORDERED: cefOXitin 1 GM Vial ONE ×2 (12:58)
--- NOTE | 2021-09-16 13:53 | PCM.POSTAN ---
POST ANESTHESIA ASSESSMENT - MENTAL STATUS Mental Status: Alert, Oriented - VITAL SIGNS Vital Signs: Last Vital Signs Temp 97.7 F 09/16/21 13:35 Pulse 64 09/16/21 13:45 Resp 18 09/16/21 13:45 BP 127/63 09/16/21 13:45 Pulse Ox 94 L 09/16/21 13:45 - RESPIRATORY Respiratory Status: Respiratory Rate WNL, Airway Patent, O2 Saturation Stable - CARDIOVASCULAR CV Status: Pulse Rate WNL, Blood Pressure Stable - GASTROINTESTINAL GI Status: No Symptoms - POST OP HYDRATION Hydration Status: Adequate & Stable
--- NOTE | 2021-09-16 13:53 | PCM48HPAN ---
Post Anesthesia Note - EVALUATION WITHIN 48HRS OF ANESTHETIC Vital Signs in Normal Range: Yes Patient Participated in Evaluation: Yes Respiratory Function Stable: Yes Airway Patent: Yes Cardiovascular Function Stable: Yes Hydration Status Stable: Yes Pain Control Satisfactory: Yes Nausea and Vomiting Control Satisfactory: Yes Mental Status Recovered: Yes Vital Signs: Last Vital Signs Temp 97.7 F 09/16/21 13:35 Pulse 64 09/16/21 13:45 Resp 18 09/16/21 13:45 BP 127/63 09/16/21 13:45 Pulse Ox 94 L 09/16/21 13:45
--- NOTE | 2021-09-16 14:25 | PCM.OPNOTE ---
- General Post-Op/Procedure Note Date of Surgery/Procedure: 09/16/21 Operative Procedure(s): Screening colonoscopy Findings: 1) Cecal polyp 2) ascending colon polyp x 4 3) transverse colon polyp x 5 4) Descending colon polyp x 1 5) Sigmoid colon polyp x 3 6) Large rectal polyp @ 10 cm biopsied Pre Op Diagnosis: Screening colonoscopy Post-Op Diagnosis: 1) Cecal polyp. 2) ascending colon polyp x 4. 3) transverse colon polyp x 5. 4) Descending colon polyp x 1. 5) Sigmoid colon polyp x 3. 6) Large rectal polyp @ 10 cm biopsied Anesthesia Technique: General Mask Primary Surgeon: Andressa Schwartz Condition: Stable Free Text/Narrative:: Intake & Output 09/15/21 09/16/21 09/16/21 22:59 06:59 14:59 Intake Total 1450 Balance 1450
--- NOTE | 2021-09-17 12:37 | OR ---
SURGEON: ANDRESSA SCHWARTZ MD DATE OF PROCEDURE: 09/16/2021 PREOPERATIVE DIAGNOSIS: Screening colonoscopy. Diagnostic EGD. Anemia POSTOPERATIVE DIAGNOSES: 1. Cecal polyp x1. 2. Ascending colon polyp x4. 3. Transverse colon polyp x5. 4. Descending colon polyp x1. 5. Sigmoid colon polyp x3. 6. Rectal mass. 7. Anemia PROCEDURE PERFORMED: Screening colonoscopy with polypectomy. Diagnostic EGD with biopsies. PRIMARY SURGEON: Endoscopist: Andressa Schwartz MD ANESTHESIA: General, mask. INSTRUMENT USED: Olympus endoscope. Olympus Colonoscope EXTENT OF EXAM: To the second portion of the duodenum. To the cecum. PREPARATION: Good. LIMITATIONS: None. INDICATIONS FOR EXAMINATION: The patient is a 71-year-old male who is overdue for a screening colonoscopy. 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 It has been over 10 years since his last colonoscopy. The patient and I discussed the procedures, expected perioperative course, and the risks. He verbalized understanding and wishes to proceed. PROCEDURE IN DETAIL: The patient was brought to the endoscopy suite and placed in the left lateral decubitus position. A time-out was completed verifying the patient's name, age, date of , allergies, and procedure to be performed. Anesthesia was induced, and continuous oxygen was provided via face mask throughout the procedure. A bite block was placed in the patient's mouth After adequate sedation was achieved, a well-lubricated endoscope was placed in the patient's mouth and advanced under direct visualization to the second portion of the duodenum. This appeared normal and a photograph was taken. The scope was then fully withdrawn while examining the color, texture, integrity, and anatomy of the upper GI tract. The patient's duodenum appeared normal. The scope was brought into the stomach and a photograph taken the pylorus and GE junction. The patient appeared to have a thickened area near the pylorus which may have been a healed ulcer. A biopsy of this was taken and sent to pathology labeled as pylorus. The remainder of his stomach mucosa appeared to be normal. Biopsies were taken of the antrum body and fundus and sent for histologic review and H. pylori testing. Scope was brought to distal esophagus and photograph taken of the Z-line which appeared grossly normal. A biopsy was taken 1 cm above this and sent to pathology for histologic review. The remainder of the exam was normal. The scope was removed and this portion of the procedure was terminated. A digital rectal exam was performed. Exam was within normal limits. A well- lubricated colonoscope was inserted in the rectum and advanced under direct visualization to the level of the cecum. Cecum was identified by both visual and anatomic landmarks. A photograph was taken of the cecal cap; however, I was unable to retroflex the scope within the cecum due to looping of the scope more proximally. The scope was then fully withdrawn while examining the color, texture, anatomy, and integrity of the mucosa from the cecum to the anal canal. The patient was noted to have multiple polyps. These were all larger and had to be removed using a hot snare. There was one in the cecum, four in the ascending colon, five in the transverse colon, one in the descending colon, three in the sigmoid, and at 10 cm from the anal verge, the patient was noted to have a large pedunculated mass. This appeared to be on a stalk. I looped it with the snare and applied cautery but was unable to get through the base of the polyp. Due to concerns for the size of the polyp and the possible size of the base, further attempts at resection were stopped. Instead, I biopsied the mass using a cold biopsy forceps and sent these biopsies to Pathology labeled as rectal polyp or rectal mass. Multiple photographs of this were taken. Scope was then brought into the rectum and retroflexed to allow visualization of the anal canal opening. This appeared normal, and a photograph was taken. Scope was straightened out and fully withdrawn. Cecum to anus time was 63 minutes. Patient tolerated the procedure well, was awoken and taken to PACU in a stable condition. ENDOSCOPIC DIAGNOSES: 1. Cecal polyp x1. 2. Ascending colon polyp x4. 3. Transverse colon polyp x5. 4. Descending colon polyp x1. 5. Sigmoid colon polyp x3. 6. Rectal mass. 7. Anemia RECOMMENDATIONS: We will refer the patient to a colorectal surgeon for further workup. CHARBEL BILLS /[id number] SRIKANTH
== END 2021-09-16 14:20 | disposition home or self-care (01) ==
LOC: MW.SDS 08:21
PROVIDERS: ATTEND Surgery
DX: D12.0 Benign neoplasm of cecum (principal); D12.2 Benign neoplasm of ascending colon; D12.3 Benign neoplasm of transverse colon; D12.4 Benign neoplasm of descending colon; D12.5 Benign neoplasm of sigmoid colon; D12.8 Benign neoplasm of rectum; K29.50 Unspecified chronic gastritis without bleeding; D64.9 Anemia, unspecified; K62.89 Other specified diseases of anus and rectum; E11.22 Type 2 diabetes mellitus with diabetic chronic kidney disease; N18.30 Chronic kidney disease, stage 3 unspecified; E78.5 Hyperlipidemia, unspecified; M10.9 Gout, unspecified; N52.9 Male erectile dysfunction, unspecified; I12.9 Hypertensive chronic kidney disease with stage 1 through stage 4 chronic kidney disease, or unspecified chronic kidney disease; K43.2 Incisional hernia without obstruction or gangrene; Z86.73 Personal history of transient ischemic attack (TIA), and cerebral infarction without residual deficits; Z88.0 Allergy status to penicillin; Z88.8 Allergy status to other drugs, medicaments and biological substances; Z79.899 Other long term (current) drug therapy; Z79.4 Long term (current) use of insulin; Z90.49 Acquired absence of other specified parts of digestive tract; Z98.890 Other specified postprocedural states; Z87.891 Personal history of nicotine dependence
CPT/HCPCS: 43239; 45380; 45385; 82947; J0694; J2405; J2704; J3010; J7120; 00813

== ENCOUNTER 2021-11-25 06:24 | Day surgery (SDC) | payer MEDICARE, BC ==
[2021-11-25] MEDS ORDERED: Ondansetron 4 MG/2 ML SDV ONE (07:16)
[2021-11-25] MEDS ORDERED: fentaNYL 100 MCG/2 ML SDV ONE (07:17)
[2021-11-25] MEDS ORDERED: Propofol 200 MG/20 ML SDV ONE ×2 (07:17→09:13)
[2021-11-25] MEDS ORDERED: Midazolam 1 MG/ML 2 ML SDV ONE (07:17)
[2021-11-25] MEDS ORDERED: Albuterol 0.083% 2.5 MG/3 ML Neb Soln NEB PRN (07:18)
[2021-11-25] MEDS ORDERED: Rocuronium Bromide 50 MG/5 ML Syringe ONE (07:18)
[2021-11-25] MEDS ORDERED: Naloxone 0.4 MG/ML SDV IVPUSH PRN (07:18)
[2021-11-25] MEDS ORDERED: Glycopyrrolate 0.2 MG/ML SDV ONE (07:18)
[2021-11-25] MEDS ORDERED: Dexamethasone 4 MG/ML 5 ML MDV ONE (07:18)
[2021-11-25] MEDS ORDERED: Ondansetron 4 MG/2 ML SDV IVPUSH PRN (07:18)
[2021-11-25] MEDS ORDERED: Metoclopramide 10 MG/2 ML SDV IVPUSH PRN (07:18)
[2021-11-25] MEDS ORDERED: Ketorolac 30 MG/ML SDV ONE (07:18)
[2021-11-25] MEDS ORDERED: HYDROmorphone 1 MG/ML Syringe IVPUSH PRN (07:18)
[2021-11-25] MEDS ORDERED: Octyl 2-Cyanoacrylate 1 Tube ONE (07:45)
[2021-11-25] MEDS ORDERED: Bupivacaine 0.5% 30 ML SDV ONE (07:45)
[2021-11-25] MEDS ORDERED: ceFAZolin 2 GM in Premix Bag 1 BAG IV ONE (08:00)
[2021-11-25] MEDS ORDERED: Sugammadex Sodium 200 MG/2 ML VIAL ONE (09:36)
[2021-11-25] MEDS ORDERED: Acetaminophen/oxyCODONE 325-5 MG Tab PO PRN ×2 (10:02→11:50)
[2021-11-25] MEDS: fentaNYL 100 MCG/2 ML SDV IVPUSH PRN ×2 (10:19→10:28)
[2021-11-25] MEDS ORDERED: Cyclobenzaprine 10 MG Tab PO SCH (14:00)
== END 2021-11-25 13:00 | disposition home or self-care (01) ==
LOC: MW.SDS 06:24
PROVIDERS: ATTEND Surgery
DX: K43.2 Incisional hernia without obstruction or gangrene (principal); E11.22 Type 2 diabetes mellitus with diabetic chronic kidney disease; N18.30 Chronic kidney disease, stage 3 unspecified; I12.9 Hypertensive chronic kidney disease with stage 1 through stage 4 chronic kidney disease, or unspecified chronic kidney disease; M10.9 Gout, unspecified; N52.9 Male erectile dysfunction, unspecified; E78.00 Pure hypercholesterolemia, unspecified; E66.9 Obesity, unspecified; Z68.32 Body mass index [BMI] 32.0-32.9, adult; Z86.73 Personal history of transient ischemic attack (TIA), and cerebral infarction without residual deficits; Z88.0 Allergy status to penicillin; Z88.8 Allergy status to other drugs, medicaments and biological substances; Z79.899 Other long term (current) drug therapy; Z79.02 Long term (current) use of antithrombotics/antiplatelets; Z79.4 Long term (current) use of insulin; Z90.49 Acquired absence of other specified parts of digestive tract; Z87.891 Personal history of nicotine dependence
CPT/HCPCS: 49654; A9270; J0131; J1100; J1170; J1885; J2250; J2405; J2704; J3010; J3490; J7120; C1781

== ENCOUNTER 2024-11-05 06:52 | Day surgery (SDC) | payer MEDICARE, BC ==
[~2024-11-05 06:52] MED LIST changes: -Lactated Ringers 1,000 ML IV SCH
[2024-11-05] MEDS ORDERED: Lidocaine 2% 5 ML SDV ONE (06:59)
[2024-11-05] MEDS ORDERED: propofoL 500 MG/50 ML 50 ML ONE (06:59)
[2024-11-05] MEDS: Lactated Ringers 1,000 ML IV SCH (07:25)
[2024-11-05] MEDS ORDERED: Propofol 200 MG/20 ML SDV ONE (08:22)
== END 2024-11-05 09:48 | disposition home or self-care (01) ==
LOC: MW.SDS 06:52
PROVIDERS: ATTEND Surgery
DX: D12.4 Benign neoplasm of descending colon (principal); K21.00 Gastro-esophageal reflux disease with esophagitis, without bleeding; K52.9 Noninfective gastroenteritis and colitis, unspecified; I12.9 Hypertensive chronic kidney disease with stage 1 through stage 4 chronic kidney disease, or unspecified chronic kidney disease; E11.22 Type 2 diabetes mellitus with diabetic chronic kidney disease; N18.30 Chronic kidney disease, stage 3 unspecified; E78.00 Pure hypercholesterolemia, unspecified; Z87.891 Personal history of nicotine dependence; Z79.4 Long term (current) use of insulin; Z79.899 Other long term (current) drug therapy; Z88.0 Allergy status to penicillin; Z88.8 Allergy status to other drugs, medicaments and biological substances; Z86.0100 Personal history of colon polyps, unspecified
CPT/HCPCS: 43239; 45380; 88305; J2704; J7120; 00813; 99100; J3490